=== PATIENT | male | born 1940 | race Caucasian/White ===

== ENCOUNTER 2016-10-17 06:44 | Inpatient (IN) | payer OTHER ==
[~2016-10-17] VITALS: Ht 165.1 cm; Wt 72.8 kg
[~2016-10-17 06:44] MED LIST: ACCUNEB SO1.25 MG/1 INH; AMLODIPINE BESY10 MG PO; ASPIR-TRIN325 MG PO; ASPIRIN325 PO; ATORVASTATIN CA40 MG PO; AUGMENTIN 500-1 EACH PO; AZITHROMYCIN 2250 MG PO; CEFTIN 250 MG250 MG PO; CEFTIN500 MG PO; COREG25 MG PO; COREG6.25 MG PO; DEMADEX20 MG PO; FLEXERIL PO; FUROSEMIDE20 MG/2 ML PO; GLYBURIDE 5 MG T5 M1; GUAIFENESIN1200 MG PO; HYDRALAZINE 2525 M1 PO; HYDRALAZINE 2525 MG PO; IBUPROFEN 600600 M1 PO; IMDUR 30 MG TAB30 M1 PO; LANTUS SUBQ; LANTUS100 UNIT/M SUBQ; LASIX 40 MG TAB40 M2 PO; LEVAQUIN 500 M500 M2 PO; LEVEMIR100 UNIT/1 SUBQ; LIPITOR40 MG PO; LISINOPRIL2.5 MG PO; LISINOPRIL20 MG PO; MUCINEX TA600 MG/TA2 PO; NEPHROCAPS SOFT1 CAP PO; NORCO 5-325 TA1 EACH PO; NORVASC5 MG PO; NOVOLOG100 UNIT/1 SUBQ; PROAIR RESPICL90 MCG IH; PROBIOTIC1 EAC1 PO; PROTONIX40 M1 PO; TYLENOL325 MG PO
[2016-10-17 06:53] VITALS: BP 155/70
[2016-10-17 07:10] LABS: ABSOLUTE NEUTROPHILS 4.4 thou/uL (1.4-8.2); BASOPHILS 1.3 % (0.0-2.0); EOSINOPHILS 4.9 % (0.0-3.0); HEMATOCRIT 36.9 % (42.0-52.0); HEMOGLOBIN 12.5 gm/dL (14.0-18.0); LYMPHOCYTES 32.7 % (24.0-44.0); MCH 30.3 pg (26.0-34.0); MCHC 33.9 g/dL (28.0-37.0); MCV 89.2 fL (80.0-100.0); MONOCYTES 11.4 % (1.0-8.0); PLATELET COUNT 178 thou/uL (150-400); POLYS 49.7 % (36.0-66.0); RBC 4.14 mil/uL (4.50-6.00); RDW 13.1 % (10.5-14.5); WBC 8.8 thou/uL (4.0-11.0)
[2016-10-17 07:18] LABS: MANUAL DIFF NO
[2016-10-17 07:21] LABS: CALCIUM 7.8 mg/dL (8.5-10.1); CREATININE 7.1 mg/dL (0.7-1.3); POTASSIUM 4.8 mmol/L (3.5-5.1)
[2016-10-17 07:23] LABS: APTT 25.2 Seconds (24.5-32.8); PROTIME 10.6 Seconds (9.3-11.4)
[2016-10-17 07:25] LABS: MAGNESIUM 1.8 mg/dL (1.8-2.4); PHOSPHORUS 6.6 mg/dL (2.5-4.9)
[2016-10-17 12:00] VITALS: BP 114/69
[2016-10-17 17:36] VITALS: BP 144/73
[2016-10-17 20:00] VITALS: BP 137/72
[2016-10-18 04:06] VITALS: BP 149/85
[2016-10-18 05:57] LABS: HEMOGLOBIN 12.3 gm/dL (14.0-18.0); MCHC 33.2 g/dL (28.0-37.0); MCV 90.4 fL (80.0-100.0); PLATELET COUNT 173 thou/uL (150-400); RDW 13.4 % (10.5-14.5)
[2016-10-18 06:03] LABS: MANUAL DIFF YES
[2016-10-18 06:05] LABS: CHOLESTEROL 165 mg/dL (<200); HDL CHOLESTEROL 69 mg/dL (>40); LDL CHOLESTEROL 77 mg/dL (<100); TC:HDL 2.4 Ratio (Not establshd); TRIGLYCERIDE 95 mg/dL (<150); VLDL 19 mg/dL (<40)
[2016-10-18 06:06] LABS: SERUM ASSESSMENT Clear
[2016-10-18 06:11] LABS: ALBUMIN 3.2 g/dL (3.4-5.0); CALCIUM 7.8 mg/dL (8.5-10.1); MAGNESIUM 1.9 mg/dL (1.8-2.4); PHOSPHORUS 5.9 mg/dL (2.5-4.9); POTASSIUM 4.3 mmol/L (3.5-5.1); TOTAL BILIRUBIN 0.2 mg/dL (<0.1-1.0); TOTAL PROTEIN 7.3 g/dL (6.4-8.2)
[2016-10-18 06:12] LABS: CREATININE 4.7 mg/dL (0.7-1.3)
[2016-10-18 07:44] LABS: ABSOLUTE NEUTROPHILS 3.4 thou/uL (1.4-8.2); ANISOCYTOSIS SLIGHT; TOTAL CELL COUNT 100
[2016-10-18 08:00] VITALS: BP 135/56
[2016-10-18] MEDS ORDERED: KEPPRA 500 MG500 M1 PO (10:53)
[2016-10-18] MEDS ORDERED: TUMS CHEWA500 MG/11 PO (11:51)
[2016-10-18 13:00] VITALS: BP 135/56
== END 2016-10-18 14:49 | disposition home or self-care (01) | DRG 91 ==
LOC: ER 06:44 → EROBS 09:46 → 4S 09:46
PROVIDERS: Emergency Medicine; Internal Medicine; Internal Medicine Nephrology
PROC: 5A1D00Z (ICD-10-PCS; principal; 2016-10-17)
DX: G25.3 Myoclonus (principal); N18.6 End stage renal disease; I12.0 Hypertensive chronic kidney disease with stage 5 chronic kidney disease or end stage renal disease; E11.22 Type 2 diabetes mellitus with diabetic chronic kidney disease; E78.5 Hyperlipidemia, unspecified; M19.90 Unspecified osteoarthritis, unspecified site; Z98.42 Cataract extraction status, left eye; Z87.01 Personal history of pneumonia (recurrent); Z87.891 Personal history of nicotine dependence; Z99.2 Dependence on renal dialysis; Z79.4 Long term (current) use of insulin; Z79.899 Other long term (current) drug therapy
CPT/HCPCS: 10100; 32100

== ENCOUNTER 2016-11-19 12:42 | Emergency (ER) | payer OTHER ==
[~2016-11-19] VITALS: Ht 165.1 cm; Wt 74.0 kg
[~2016-11-19 12:42] MED LIST changes: +KEPPRA 500 MG500 M1 PO; +TUMS CHEWA500 MG/11 PO
[2016-11-19 13:06] LABS: BASOPHILS 0.9 % (0.0-2.0); EOSINOPHILS 2.4 % (0.0-3.0); HEMATOCRIT 37.2 % (42.0-52.0); HEMOGLOBIN 12.6 gm/dL (14.0-18.0); MCH 30.7 pg (26.0-34.0); MCHC 33.9 g/dL (28.0-37.0); MCV 90.5 fL (80.0-100.0); PLATELET COUNT 220 thou/uL (150-400); POLYS 74.7 % (36.0-66.0); RBC 4.12 mil/uL (4.50-6.00); RDW 14.2 % (10.5-14.5); WBC 10.7 thou/uL (4.0-11.0)
[2016-11-19 13:07] LABS: MANUAL DIFF NO
[2016-11-19 13:14] LABS: CREATININE 7.7 mg/dL (0.7-1.3); POTASSIUM 5.3 mmol/L (3.5-5.1)
[2016-11-19 13:41] VITALS: BP 163/74
== END 2016-11-19 13:12 | disposition home or self-care (01) ==
LOC: ER 12:42
PROVIDERS: Emergency Medicine
DX: E11.649 Type 2 diabetes mellitus with hypoglycemia without coma (principal); R42 Dizziness and giddiness; E78.5 Hyperlipidemia, unspecified; E11.22 Type 2 diabetes mellitus with diabetic chronic kidney disease; I12.9 Hypertensive chronic kidney disease with stage 1 through stage 4 chronic kidney disease, or unspecified chronic kidney disease; N18.9 Chronic kidney disease, unspecified; Z79.4 Long term (current) use of insulin; Z87.891 Personal history of nicotine dependence; Z98.890 Other specified postprocedural states

== ENCOUNTER 2016-12-11 19:19 | Inpatient (IN) | payer OTHER ==
[~2016-12-11] VITALS: Ht 165.1 cm; Wt 76.3 kg
--- NOTE | ~2016-12-11 | HC ---
[facility] [place] [address] CONSULTATION Name: BETTYE MAYA Room #: 311-P ADM IN M.R.#: [id number] Admission: 12/11/16 Attend Phys: Gage Hua MD Discharge: Date of : 41 Report #: [id number] THIS REPORT FOR: //name// CC: FAM unknown Gage Hua REASON FOR CONSULTATION: Arrhythmia and high blood pressure. HISTORY OF PRESENT ILLNESS: The patient is a 76-year-old with history of hypertension, end-stage renal disease, prior CVA and diabetes mellitus, he was admitted to the hospital with worsening abdominal pain and diarrhea and was found to have a urinary tract infection and elevated blood sugars. He was placed on telemetry and he has had some arrhythmias documented. I reviewed the telemetry and there were episodes of supraventricular tachycardia, likely atrial tachycardia. There were brief in nature, some of these were narrow complex, others were wide complex and irregular in nature. The patient denies any problems with chest pain, shortness of breath is stable. He denies any PND or orthopnea. He denies presyncope or syncope. REVIEW OF SYSTEMS: A 12-point review of systems was performed and was negative other than what I mentioned above. PAST MEDICAL HISTORY: 1. Hypertension. 2. Diabetes. 3. Chronic renal insufficiency. 4. Diastolic heart failure. 5. Prior cerebrovascular accident. 6. Pancreatic surgery. SOCIAL HISTORY: Does not smoke. FAMILY HISTORY: Includes diabetes. ALLERGIES: None. MEDICATIONS: Have been reviewed and include heparin, insulin, Rocephin, aspirin, glyburide, Coreg 25 b.i.d. Last echocardiogram was in 02/2016 demonstrating eject fraction 55-60% with some diastolic dysfunction and no significant valvular abnormalities. PA pressures of 41. PHYSICAL EXAMINATION: VITAL SIGNS: Temperature is 37.4, pulse 84, respiration 20, blood pressure 159/71, sats are 98%. GENERAL: He is in no acute distress. Alert, oriented x 3. [address] [address] CONSULTATION Name: BETTYE MAYA Room #: 311-P [facility] IN .R.#: [id number] Admission: 12/11/16 Attend Phys: Gage Hua MD Discharge: Date of : 41 Report #: [id number] HEENT: Oropharynx clear. NECK: Supple, with no thyromegaly. HEART: Regular rate and rhythm with occasional ectopic beats. There is no elevated jugular venous pressures. LUNGS: Clear to auscultation bilaterally. ABDOMEN: Soft, nontender, nondistended with no hepatosplenomegaly. EXTREMITIES: No clubbing, cyanosis, edema. NEUROLOGICAL: Cranial nerves 2-12 are intact. Telemetry is reviewed per the history of present illness. LABORATORY DATA: White cell count 18.4, hemoglobin 10.9, platelets 239. Chemistry: Sodium 130, potassium 4.6, creatinine is 6.5, on dialysis. Troponin is negative x 1. ASSESSMENT: In summary, the patient is a 76-year-old with history of end-stage renal disease, diabetes, hypertension, prior cerebrovascular accident, who on equipment monitor phototypesetting has brief runs of what appears to be an atrial tachycardia, most of which are narrow complex, some of these shows some supraventricular tachycardia with aberration. These appear to be self-limited and asymptomatic. There are no episodes suggestive of atrial fibrillation. Therefore, anticoagulation is not recommended. I would recommend continuing of his carvedilol at the current dose. I recommend obtaining an echocardiogram if he is still here on Friday. <ELECTRONICALLY SIGNED> By: Yvon Sanz MD 12/19/16 1106 1249 1449 Yvon Sanz MD /nt
--- NOTE | ~2016-12-11 | HC ---
[facility] [place] [address] CONSULTATION Name: BETTYE MAYA Room #: 311-P ADM IN M.R.#: [id number] Admission: 12/11/16 Attend Phys: Gage Hua MD Discharge: Date of : 41 Report #: [id number] THIS REPORT FOR: //name// CC: FAM unknown Gage Hua DATE OF SERVICE: 12/12/2016 NEPHROLOGY CONSULTATION ATTENDING PHYSICIAN: Melvin Hernandez M.D. REASON FOR CONSULTATION: End-stage renal disease. HISTORY OF PRESENT ILLNESS: The patient is well known to our service with long-standing diabetes mellitus and diabetic nephropathy, has been on dialysis for 8 months or so. Recently, he has had dribbling and dysuria, some fever and some nausea and vomiting. He came to the Emergency Room and was found to have a urinary tract infection and glucose of greater than 600. PAST MEDICAL HISTORY: He has had a remote history of pancreatitis. He has got diabetes mellitus with documented diabetic nephropathy. He has had diastolic heart failure in the past as well. Some degree of documented poor medical compliance. He has got left arm fistula. HOME MEDICATIONS: Included insulin, carvedilol 25 mg b.i.d., glyburide 5 mg daily, Sensipar 30 mg daily, aspirin 325 mg daily, Nephrocaps 1 daily and Tums 2 with meals t.i.d. SOCIAL HISTORY: No cigarettes or alcohol. Former smoker. FAMILY HISTORY: Positive for diabetes and hypertension. REVIEW OF SYSTEMS: GENERAL: He has been feeling poorly. EYES: His vision is okay. ENT: Hearing okay, swallows okay. No mouth ulcers. ENDOCRINE: Positive for the diabetes. RESPIRATORY: Denies shortness of breath, pleuritic pain, cough or hemoptysis. CARDIAC: No palpitations, swelling or shortness of breath. No angina. GASTROINTESTINAL: He has had poor appetite, some vomiting and some nausea. GENITOURINARY: Dribbling and pain with urination, frequent urination. NEUROLOGIC: Denies seizure, syncope or stroke. PHYSICAL EXAMINATION: GENERAL: This is a reasonably comfortable-appearing gentleman seen in bed on [facility] [address] [place] [address] CONSULTATION Name: BETTYE MAYA Room #: 311-P [facility] IN ..#: [id number] Admission: 12/11/16 Attend Phys: Gage Hua MD Discharge: Date of : 41 Report #: [id number] dialysis. SKIN: Unremarkable. SKELETAL: Non-obese, well developed and well nourished. HEENT: Extraocular movements are full. Vision intact. No scleral icterus. Hearing intact. Mucous membranes moist. Tongue, buccal mucosa benign. NECK: Supple. No carotid bruits, JVD or lymphadenopathy. CHEST: Clear to auscultation. HEART: Regular, without murmurs. ABDOMEN: Soft and nontender, without bruits, masses or organomegaly. EXTREMITIES: Show no edema. Peripheral pulses intact. LABORATORY DATA: Glucose was initially greater than 600. White count 13.2 with 3 bands. ASSESSMENT AND PLAN: 1. End-stage renal disease. We will dialyze today, order is in. 2. Urinary tract infection. He may have urologic issues. He may need to see urology, who will do some postvoid analysis. 3. Diabetes with poor control. 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 4. 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 5. History of diastolic heart failure. <ELECTRONICALLY SIGNED> By: Dm To MD 12/18/16 1121 0941 1045 Dm To MD /nt
--- NOTE | ~2016-12-11 | 2DMMODE ---
[facility] [address] [place] [address] 2 D/M-MODE ECHOCARDIOGRAM Name: ALAN MAYAOMARIRocky Room #: 311-P [facility] IN .R.#: [id number] Admission: 12/11/16 Attend Phys: Gage Hua MD Discharge: Date of : 41 Date of Service: 12/16/16 1143 Report #: [id number] THIS REPORT FOR: //name// APPROVED REPORT Study performed: 12/16/2016 09:50:23 EXAM: Comprehensive 2D, Doppler, and color-flow Echocardiogram Patient Location: Bedside Room #: 311 Status: routine BSA: 1.80 HR: 101 bpm BP: 149/74 mmHg Other Information Study Quality: Good Indications Arrhythmia Diabetes Hypertension/HDD SVT. 2D Dimensions RVDd: 37.64 mm LVEF(%): 60.93 (>50%) IVSd: 15.16 (7-11mm) LVOT Diam: 23.05 (18-24mm) LVDd: 40.33 mm PWd: 13.76 (7-11mm) Ascending Ao: 32.02 (22-36mm) LVDs: 27.35 (25-40mm) Aortic Root: 32.20 mm IVC: 17.00 mm Miller's LVEF: 60.93 % Volumes Left Atrial Volume (Systole) Single Plane 4CH: 40.43 mL Single Plane 2CH: 92.68 mL LA ESV Index: 41.00 mL/m2 Aortic Valve AoV Peak Brennan.: 2.01 m/s AO Peak Gr.: 16.17 mmHg LVOT Max P.95 mmHg LVOT Max V: 0.99 m/s MERCEDES Vmax: 2.06 cm2 [facility] [address] [place] [address] 2 D/M-MODE ECHOCARDIOGRAM Name: BETTYE MAYA Room #: 311-P [facility] IN .R.#: [id number] Admission: 12/11/16 Attend Phys: Gage Hua MD Discharge: Date of : 41 Date of Service: 12/16/16 1143 Report #: [id number] Mitral Valve E/A Ratio: 0.8 MV Decel. Time: 294.88 ms MV E Max Brennan.: 0.84 m/s MV A Brennan.: 1.08 m/s MV PHT: 85.52 ms IVRT: 141.87 ms Pulmonary Valve PV Peak Brennan.: 0.95 m/s PV Peak Gr.: 3.62 mmHg Pulmonary Vein P Vein S: 0.44 m/s P Vein A: 0.28 m/s P Vein D: 0.33 m/s P Vein A Dur.: 90.0 msec P Vein S/D Ratio: 1.33 Tricuspid Valve TR Peak Brennan.: 3.58 m/s RAP Estimate: 5.00 mmHg TR Peak Gr.: 51.14 mmHg PA Pressure: 56.00 mmHg Left Ventricle The left ventricle is normal size. Mild to moderate concentric left ventricular hypertrophy. The left ventricular systolic function is normal. The left ventricular ejection fraction is within the normal range. LVEF is 55-60%. Grade I - abnormal relaxation pattern. Right Ventricle The right ventricle is normal size. The right ventricular systolic function is normal. Atria Left atrium is dilated. The right atrium size is normal. Aortic Valve The aortic valve is normal in structure. Trace aortic regurgitation. There is no aortic valvular stenosis. Mitral Valve The mitral valve is normal in structure. Mild mitral regurgitation. No evidence of mitral valve stenosis. Tricuspid Valve The tricuspid valve is normal in structure. There is no tricuspid valve stenosis. There is trace tricuspid regurgitation. [facility] [address] [place] [address] 2 D/M-MODE ECHOCARDIOGRAM Name: BETTYE MAYA Room #: 311-P [facility] IN [facility]#: [id number] Admission: 12/11/16 Attend Phys: Gage Hua MD Discharge: Date of : 41 Date of Service: 12/16/16 1143 Report #: [id number] Pulmonic Valve The pulmonary valve is normal in structure. There is no pulmonic valvular regurgitation. Great Vessels The aortic root is normal in size. IVC is normal in size and collapses >50% with inspiration. Pericardium There is no pericardial effusion. <Conclusion> The left ventricle is normal size. Mild to moderate concentric left ventricular hypertrophy. LVEF is 55-60%. Grade I - abnormal relaxation pattern. The right ventricle is normal size. Left atrium is dilated. The aortic valve is normal in structure. Mild mitral regurgitation. There is trace tricuspid regurgitation. There is no pericardial effusion. <ELECTRONICALLY SIGNED> By: Dm Kelly MD, [facility] 12/16/16 1143 1143 1143 Dm Kelly MD, FACC /INF
--- NOTE | ~2016-12-11 | HC ---
[facility] [place] [address] CONSULTATION Name: BETTYE MAYA Room #: 311-P [facility] IN M.R.#: [id number] Admission: 12/11/16 Attend Phys: Gage Hua MD Discharge: Date of : 41 Report #: [id number] THIS REPORT FOR: //name// CC: FAM unknown Gage Hua DATE OF SERVICE: 12/14/2016 TYPE OF REPORT: Infectious disease consultation. ATTENDING PHYSICIAN: Gage Hua M.D. REASON FOR EVALUATION: Complicated urinary tract infection and increasing leukocytosis, on antibiotic therapy. HISTORY OF PRESENT ILLNESS: Chart reviewed, the patient examined. A 76-year-old male with diabetes mellitus, has been complicated by end-stage renal disease, on hemodialysis for the last 8 months via shunt; who was admitted with complaints of frequency, urgency. It is notable he does continue to make urine, is diagnosed with urinary tract infection, had moderate pyuria and moderate bacteriuria. Urine culture with growth of Klebsiella pneumoniae that was greater than 10 to the fifth in quantity, was very susceptible with no evident in vitro resistance, has been on ceftriaxone. Generally, he states he feels somewhat better. He still has some discomfort, although that is eased. In addition to the above-noted complaints, he had some loose stools as well. He states his appetite has been fair. He is not having consistent breathing difficulties. He has had some low-grade temperature elevations, seemingly in a secret pattern often in the evening. On questioning, he denies any particular exposure history, no travel, no animal exposure and is not encephalopathic. Blood cultures were ____ sterile. Stool cultures unremarkable. CT abdomen and pelvis, which was done at the time of admission with some changes that is a question of large prostate gland. ALLERGIES: None known. MEDICATIONS: Include insulin, ceftriaxone, aspirin, glyburide, carvedilol and ____. PAST MEDICAL HISTORY: As described above and does have a history of pancreatitis with surgery, otherwise lacking details; hyperlipidemia and osteoarthritis. SOCIAL HISTORY: Nonsmoker. No ethanol. FAMILY HISTORY: Noncontributory. [facility] [address] [place] [address] CONSULTATION Name: BETTYE MAYA Room #: 311-P [facility] IN ..#: [id number] Admission: 12/11/16 Attend Phys: Gage Hua MD Discharge: Date of : 41 Report #: [id number] REVIEW OF SYSTEMS: As above. PHYSICAL EXAMINATION: GENERAL: He is pleasant, alert, cooperative, in mild distress, appears chronically ill and undernourished. VITAL SIGNS: Temperature 99.3, pulse 84, respirations 20 and blood pressure 159/71. SKIN: Warm and dry. No rashes. HEENT: Otherwise unremarkable. NECK: Supple. LUNGS: Clear to auscultation. HEART: Regular. ABDOMEN: Soft and nontender. There is mild tenderness in lower quadrants. LABORATORY DATA: Blood cultures as described above. Most recent CBC: White count of 18.4, H and H 10.9 and 31.4 and platelets of 239. Electrolytes: Sodium 130, potassium 4.6, chloride 90, bicarbonate is 20, BUN and creatinine 52 and 6.5 and glucose of 245. ASSESSMENT AND PLAN: Leukocytosis in the setting of a complicated urinary tract infection, may be prostate involved as well. We will get an ultrasound given his burning and still difficulty in his perineal area. Symptoms seem somewhat exaggerated ____, otherwise unremarkable cystitis. We will check some additional studies to peripheral smear ____ white count may be due to ____, etc. We will check serum protein electrophoresis, he is hyponatremic as well and cortisol and TSH level. Continue the ceftriaxone for the meantime. We will follow. <ELECTRONICALLY SIGNED> By: Pb Calix MD 12/15/16 1702 1705 2477 Pb Calix MD /nt
--- NOTE | ~2016-12-11 | EKG ---
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 NELSON : 1940 Requested By: Daniel Melgar Order Number: [id number] MD: Thomas Burton Measurements Intervals [place] Rate: 107 P: -45 MN: 177 QRS: -29 QRSD: 108 T: 124 QT: 365 QTc: 487 Interpretive Statements Sinus tachycardia Atrial premature complex LVH with secondary repolarization abnormality Anterior Q waves, possibly due to LVH Compared to ECG 03/07/2016 13:23:37 Atrial premature complex(es) now present Electronically Signed On 12-20-2016 8:36:37 CDT by Thomas Burton [email or web address] <ELECTRONICALLY SIGNED> By: Thomas Burton MD, [facility] 12/20/16 0836 1316 1316 Thomas Burton MD, [facility] /EPI
[2016-12-11 19:20] VITALS: BP 149/70
[2016-12-11] MEDS ORDERED: GLYBURIDE 2.52.5 MG PO (19:45)
[2016-12-11] MEDS ORDERED: SENSIPAR 30 MG30 M1 PO (19:47)
[2016-12-11 20:15] LABS: HEMATOCRIT 32.7 % (42.0-52.0); HEMOGLOBIN 11.1 gm/dL (14.0-18.0); MCH 31.1 pg (26.0-34.0); MCHC 33.9 g/dL (28.0-37.0); MCV 91.7 fL (80.0-100.0); PLATELET COUNT 237 thou/uL (150-400); RBC 3.56 mil/uL (4.50-6.00); RDW 13.4 % (10.5-14.5); WBC 13.2 thou/uL (4.0-11.0)
[2016-12-11 20:21] LABS: MANUAL DIFF YES
[2016-12-11 20:31] LABS: ALBUMIN 2.9 g/dL (3.4-5.0); CALCIUM 9.8 mg/dL (8.5-10.1); POTASSIUM 4.7 mmol/L (3.5-5.1); TOTAL BILIRUBIN 0.4 mg/dL (<0.1-1.0); TOTAL PROTEIN 8.2 g/dL (6.4-8.2)
[2016-12-11 20:47] LABS: ABSOLUTE NEUTROPHILS 11.5 thou/uL (1.4-8.2); METAMYELOCYTES 2 %; TOTAL CELL COUNT 100
[2016-12-11 20:48] LABS: ANISOCYTOSIS 1+; POLYCHROMASIA OCCASIONAL
[2016-12-11 20:55] LABS: URINE BILIRUBIN NEGATIVE (Negative); URINE BLOOD 2+ (Negative); URINE COLOR YELLOW; URINE GLUCOSE-RANDOM* 3+ (Negative); URINE KETONES NEGATIVE (Negative); URINE LEUKOCYTES-REFLEX 2+ (Negative); URINE PROTEIN (DIPSTICK) 2+ (Negative); URINE UROBILINOGEN 0.2 E.U./dl (0.2-1.0)
[2016-12-11 20:57] LABS: ABG SAMPLE TYPE VENOUS; BE(vivo) -1.2 mmol/L (-2 to +3); HCO3 24.4 mmol/L (22.0-26.0); LACTATE 2.31 mmol/L (0.5-2.0); O2(CT) 9.1 mL/dL (15.0-23.0); O2Hb VENOUS 57.7 (65.0-85.0); PCO2 VENOUS 44.4 mmHg (41.0-51.0); PO2 VENOUS 29.5 mmHg (35.0-45.0); STICK SITE VENIPUNCTURE; sO2 VENOUS 53.2 % (65.0-85.0); tCO2 25.7 mmol/L (24.0-30.0)
[2016-12-11 21:02] LABS: CASTS None Seen /LPF (None Seen); CRYSTALS None Seen /LPF (None Seen); SQUAMOUS None Seen /LPF (0-3); URINE RBC 0-2 Rare /HPF (0-2)
[2016-12-11 22:24] VITALS: BP 136/64
[2016-12-12 04:05] LABS: CALCIUM 9.5 mg/dL (8.5-10.1); CREATININE 7.8 mg/dL (0.7-1.3); MAGNESIUM 1.8 mg/dL (1.8-2.4)
[2016-12-12 04:06] LABS: HEMATOCRIT 28.3 % (42.0-52.0); HEMOGLOBIN 9.8 gm/dL (14.0-18.0); MCHC 34.5 g/dL (28.0-37.0); MCV 89.8 fL (80.0-100.0); RBC 3.15 mil/uL (4.50-6.00); RDW 13.8 % (10.5-14.5); WBC 12.6 thou/uL (4.0-11.0)
[2016-12-12 04:35] VITALS: BP 138/66
[2016-12-12 08:00] VITALS: BP 135/57
[2016-12-12 16:50] VITALS: BP 153/67
[2016-12-12 19:14] VITALS: BP 148/67
[2016-12-13 03:47] VITALS: BP 181/75
[2016-12-13 05:45] LABS: HEMATOCRIT 31.8 % (42.0-52.0); HEMOGLOBIN 10.7 gm/dL (14.0-18.0); MCHC 33.5 g/dL (28.0-37.0); MCV 92.4 fL (80.0-100.0); RBC 3.44 mil/uL (4.50-6.00); RDW 14.1 % (10.5-14.5); WBC 15.1 thou/uL (4.0-11.0)
[2016-12-13 06:04] LABS: ALBUMIN 2.7 g/dL (3.4-5.0); CREATININE 5.1 mg/dL (0.7-1.3); PHOSPHORUS 3.3 mg/dL (2.5-4.9); POTASSIUM 4.4 mmol/L (3.5-5.1)
[2016-12-13 08:00] VITALS: BP 147/72
[2016-12-13 16:00] VITALS: BP 139/64
[2016-12-13 19:40] VITALS: BP 140/62
[2016-12-13 23:10] VITALS: BP 127/56
[2016-12-14 00:39] LABS: HEMATOCRIT 31.4 % (42.0-52.0); HEMOGLOBIN 10.9 gm/dL (14.0-18.0); MCH 31.6 pg (26.0-34.0); MCHC 34.9 g/dL (28.0-37.0); MCV 90.6 fL (80.0-100.0); RBC 3.46 mil/uL (4.50-6.00); RDW 14.3 % (10.5-14.5); WBC 18.4 thou/uL (4.0-11.0)
[2016-12-14 00:44] LABS: CALCIUM 8.2 mg/dL (8.5-10.1); CREATININE 6.5 mg/dL (0.7-1.3); POTASSIUM 4.6 mmol/L (3.5-5.1)
[2016-12-14 00:53] LABS: MAGNESIUM 1.6 mg/dL (1.8-2.4); TROPONIN-I 0.06 ng/mL (<0.04-0.07)
[2016-12-14 03:40] VITALS: BP 143/74
[2016-12-14 07:30] VITALS: BP 159/71
[2016-12-14 17:38] LABS: HEMATOCRIT 31.1 % (42.0-52.0); HEMOGLOBIN 10.6 gm/dL (14.0-18.0); MCH 30.9 pg (26.0-34.0); MCHC 34.2 g/dL (28.0-37.0); MCV 90.2 fL (80.0-100.0); PLATELET COUNT 277 thou/uL (150-400); RBC 3.45 mil/uL (4.50-6.00); WBC 16.7 thou/uL (4.0-11.0)
[2016-12-14 17:40] LABS: MANUAL DIFF YES
[2016-12-14 17:56] LABS: ABSOLUTE NEUTROPHILS 11.7 thou/uL (1.4-8.2); METAMYELOCYTES 2 %; MYELOCYTES 1 %; TOTAL CELL COUNT 100
[2016-12-14 19:57] VITALS: BP 163/70
[2016-12-15 03:37] VITALS: BP 149/66
[2016-12-15 05:36] LABS: HEMATOCRIT 31.2 % (42.0-52.0); HEMOGLOBIN 10.3 gm/dL (14.0-18.0); MCH 30.2 pg (26.0-34.0); MCHC 32.9 g/dL (28.0-37.0); MCV 91.7 fL (80.0-100.0); RBC 3.4 mil/uL (4.50-6.00); RDW 14.1 % (10.5-14.5); WBC 16.9 thou/uL (4.0-11.0)
[2016-12-15 08:21] VITALS: BP 170/76
[2016-12-15 15:18] VITALS: BP 139/73
[2016-12-15 20:09] VITALS: BP 179/86
[2016-12-15 23:22] VITALS: BP 145/70
[2016-12-16 03:56] VITALS: BP 173/82
[2016-12-16 06:19] LABS: HEMATOCRIT 30.4 % (42.0-52.0); HEMOGLOBIN 10.4 gm/dL (14.0-18.0); MANUAL DIFF YES; MCH 30.6 pg (26.0-34.0); MCHC 34.1 g/dL (28.0-37.0); MCV 89.8 fL (80.0-100.0); PLATELET COUNT 283 thou/uL (150-400); RBC 3.38 mil/uL (4.50-6.00); RDW 14.1 % (10.5-14.5); WBC 18.3 thou/uL (4.0-11.0)
[2016-12-16 06:32] LABS: ALBUMIN 2.5 g/dL (3.4-5.0); CALCIUM 7.8 mg/dL (8.5-10.1); CREATININE 6.2 mg/dL (0.7-1.3); POTASSIUM 3.9 mmol/L (3.5-5.1); TOTAL BILIRUBIN 0.4 mg/dL (<0.1-1.0); TOTAL PROTEIN 7.7 g/dL (6.4-8.2)
[2016-12-16 08:12] LABS: ABSOLUTE NEUTROPHILS 16.5 thou/uL (1.4-8.2); ANISOCYTOSIS SLIGHT; METAMYELOCYTES 1 %; MYELOCYTES 1 %; TOTAL CELL COUNT 100
[2016-12-16 08:24] VITALS: BP 149/74
[2016-12-16 15:49] VITALS: BP 129/73
[2016-12-16 19:27] VITALS: BP 143/59
[2016-12-17 03:32] VITALS: BP 159/67
[2016-12-17 05:00] LABS: HEMATOCRIT 27.5 % (42.0-52.0); HEMOGLOBIN 9.4 gm/dL (14.0-18.0); MCH 30.7 pg (26.0-34.0); MCHC 34.2 g/dL (28.0-37.0); MCV 89.9 fL (80.0-100.0); PLATELET COUNT 263 thou/uL (150-400); RBC 3.06 mil/uL (4.50-6.00); WBC 24.5 thou/uL (4.0-11.0)
[2016-12-17 05:04] LABS: MANUAL DIFF YES
[2016-12-17 05:25] LABS: CALCIUM 8.1 mg/dL (8.5-10.1); POTASSIUM 3.6 mmol/L (3.5-5.1)
[2016-12-17 07:43] VITALS: BP 132/63
[2016-12-17 08:08] LABS: A/G RATIO 0.7 (0.7-1.7); ALBUMIN 2.7 g/dL (2.9-4.4); ALPHA 1 0.4 g/dL (0.0-0.4); ALPHA 2 1.4 g/dL (0.4-1.0); GAMMA 1.1 g/dL (0.4-1.8); M-SPIKE Not Observed g/dL (Not Observed)
[2016-12-17 08:48] LABS: ABSOLUTE NEUTROPHILS 22.5 thou/uL (1.4-8.2); METAMYELOCYTES 2 %; PLATELET ESTIMATE NORMAL; TOTAL CELL COUNT 100
[2016-12-17 12:11] LABS: URINE BILIRUBIN NEGATIVE (Negative); URINE BLOOD 2+ (Negative); URINE COLOR YELLOW; URINE GLUCOSE-RANDOM* TRACE (Negative); URINE KETONES NEGATIVE (Negative); URINE LEUKOCYTES-REFLEX 1+ (Negative); URINE PROTEIN (DIPSTICK) 2+ (Negative); URINE SPECIFIC GRAVITY 1.025 (1.003-1.035)
[2016-12-17 12:17] LABS: CRYSTALS None Seen /LPF (None Seen); FINE GRANULAR CASTS 0-3 Few /LPF (None Seen); SQUAMOUS 0-3 Few /LPF (0-3); URINE RBC 3-10 Few /HPF (0-2)
[2016-12-17 12:18] LABS: WBC CLUMPS Moderate (None Seen)
[2016-12-17 20:30] VITALS: BP 132/77
[2016-12-18 04:10] VITALS: BP 124/73
[2016-12-18 05:33] LABS: HEMOGLOBIN 9.1 gm/dL (14.0-18.0); MCH 30.5 pg (26.0-34.0); MCHC 33.8 g/dL (28.0-37.0); MCV 90.1 fL (80.0-100.0); PLATELET COUNT 306 thou/uL (150-400); RDW 13.9 % (10.5-14.5); WBC 22.7 thou/uL (4.0-11.0)
[2016-12-18 05:38] LABS: MANUAL DIFF YES
[2016-12-18 05:48] LABS: CALCIUM 8.3 mg/dL (8.5-10.1); MAGNESIUM 1.7 mg/dL (1.8-2.4); POTASSIUM 3.9 mmol/L (3.5-5.1)
[2016-12-18 05:52] LABS: CREATININE 4.4 mg/dL (0.7-1.3)
[2016-12-18 07:20] VITALS: BP 147/73
[2016-12-18 07:39] LABS: ABSOLUTE NEUTROPHILS 16.8 thou/uL (1.4-8.2); ATYPICAL LYMPHS 2 %; METAMYELOCYTES 2 %; MYELOCYTES 1 %; TOTAL CELL COUNT 100
[2016-12-18 07:43] LABS: ANISOCYTOSIS 1+
[2016-12-18 15:27] VITALS: BP 117/61
[2016-12-18 19:55] VITALS: BP 131/64
[2016-12-19 03:59] LABS: HEMATOCRIT 26.3 % (42.0-52.0); HEMOGLOBIN 9.1 gm/dL (14.0-18.0); MCH 31.3 pg (26.0-34.0); MCHC 34.5 g/dL (28.0-37.0); MCV 90.7 fL (80.0-100.0); PLATELET COUNT 322 thou/uL (150-400); RDW 14.2 % (10.5-14.5); WBC 18.1 thou/uL (4.0-11.0)
[2016-12-19 04:10] LABS: MANUAL DIFF YES
[2016-12-19 04:45] VITALS: BP 140/69
[2016-12-19 07:39] LABS: ABSOLUTE NEUTROPHILS 13.8 thou/uL (1.4-8.2); METAMYELOCYTES 3 %; MYELOCYTES 1 %; TOTAL CELL COUNT 100
[2016-12-19 07:41] LABS: ANISOCYTOSIS SLIGHT
[2016-12-19] MEDS ORDERED: CIPRO500 MG PO (11:27)
[2016-12-19] MEDS ORDERED: CARDIZEM CD120 MG PO (11:27)
[2016-12-19] MEDS ORDERED: FLOMAX0.4 MG PO (11:27)
[2016-12-19 12:05] VITALS: BP 144/63
[2016-12-19 12:06] VITALS: BP 140/69
[2016-12-19 12:20] VITALS: BP 144/63
== END 2016-12-19 13:41 | disposition home health service (06) | DRG 871 ==
LOC: ER 19:19 → 3N 21:46 → EROBS 21:46 → 3N 22:34 → ENTRNSPT 12-19 13:23 → EDTRNSPTSTS 12-19 13:36 → 3N 12-19 13:41
PROVIDERS: Emergency Medicine; Hospitalist; Internal Medicine; Internal Medicine Nephrology; Nurse Practitioner Acute Care; Specialist
PROC: 5A1D60Z (ICD-10-PCS; principal; 2016-12-12)
DX: A41.9 Sepsis, unspecified organism (principal); N18.6 End stage renal disease; N39.0 Urinary tract infection, site not specified; I13.2 Hypertensive heart and chronic kidney disease with heart failure and with stage 5 chronic kidney disease, or end stage renal disease; I47.1 Supraventricular tachycardia; E87.1 Hypo-osmolality and hyponatremia; E11.65 Type 2 diabetes mellitus with hyperglycemia; M19.90 Unspecified osteoarthritis, unspecified site; E11.22 Type 2 diabetes mellitus with diabetic chronic kidney disease; E78.5 Hyperlipidemia, unspecified; I50.9 Heart failure, unspecified; E11.42 Type 2 diabetes mellitus with diabetic polyneuropathy; B96.1 Klebsiella pneumoniae [K. pneumoniae] as the cause of diseases classified elsewhere; R19.7 Diarrhea, unspecified; N41.9 Inflammatory disease of prostate, unspecified; D64.9 Anemia, unspecified; Z87.01 Personal history of pneumonia (recurrent); Z98.42 Cataract extraction status, left eye; Z79.899 Other long term (current) drug therapy; Z87.891 Personal history of nicotine dependence; Z79.82 Long term (current) use of aspirin; Z99.2 Dependence on renal dialysis; Z82.49 Family history of ischemic heart disease and other diseases of the circulatory system; Z83.3 Family history of diabetes mellitus; Z79.4 Long term (current) use of insulin; Z86.73 Personal history of transient ischemic attack (TIA), and cerebral infarction without residual deficits
CPT/HCPCS: 10096; 32100

== ENCOUNTER 2018-01-09 08:14 | Inpatient (IN) | payer OTHER ==
[~2018-01-09] VITALS: Ht 162.6 cm; Wt 83.1 kg
--- NOTE | ~2018-01-09 | EKG ---
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
--- NOTE | ~2018-01-09 | 2DMMODE ---
[facility] [address] [place] [address] 2 D/M-MODE ECHOCARDIOGRAM Name: ALAN MAYAOMARIRocky Room #: 212-P ADM IN M.R.#: [id number] Admission: 01/09/18 Attend Phys: Melvin Hernandez, Discharge: Date of : 42 Date of Service: 01/12/18 1604 Report #: [id number] THIS REPORT FOR: //name// APPROVED REPORT Study performed: 01/12/2018 10:49:23 EXAM: Comprehensive 2D, Doppler, and color-flow Echocardiogram Patient Location: Echo lab Room #: [facility] Status: routine BSA: 1.88 HR: 70 bpm BP: 152/69 mmHg Rhythm: NSR/irregular Other Information Study Quality: Good Indications Nonsustained V-tach, short of breath, HTN. Hx: Diastolic HF, HTN, DM, ESRD. 2D Dimensions RVDd: 40.75 mm IVSd: 12.95 (7-11mm) LVOT Diam: 20.52 (18-24mm) LVDd: 52.81 mm PWd: 9.07 (7-11mm) LVDs: 32.21 (25-40mm) Aortic Root: 33.13 mm Volumes Left Atrial Volume (Systole) Single Plane 4CH: 55.62 mL Single Plane 2CH: 74.28 mL LA ESV Index: 38.00 mL/m2 Aortic Valve AoV Peak Brennan.: 2.42 m/s AO Peak Gr.: 0.46 mmHg LVOT Max P.13 mmHg AO Mean Gr.: 13.16 mmHg AO V2 Mean: 1.75 m/s LVOT Max V: 1.13 m/s AO V2 VTI: 58.00 cm MERCEDES Vmax: 1.54 cm2 Mitral Valve [facility] [place] [address] 2 D/M-MODE ECHOCARDIOGRAM [facility]: [facility] Room #: 212-P [facility] IN M.R.#: [id number] Admission: 01/09/18 Attend Phys: Melvin Hernandez, Discharge: Date of : 41 Date of Service: 01/12/18 1604 Report #: [id number] E/A Ratio: 2.3 MV Decel. Time: 161.03 ms MV E Max Brennan.: 1.56 m/s MV A Brennan.: 0.69 m/s MV PHT: 46.70 ms Pulmonary Valve PV Peak Brennan.: 1.06 m/s PV Peak Gr.: 4.47 mmHg Pulmonary Vein P Vein S: 0.43 m/s P Vein D: 0.96 m/s P Vein S/D Ratio: 0.45 Tricuspid Valve TR Peak Brennan.: 3.78 m/s RAP Estimate: 5.00 mmHg TR Peak Gr.: 57.05 mmHg PA Pressure: 62.00 mmHg Left Ventricle The left ventricle is normal size. There is normal LV segmental wall motion. Mild concentric left ventricular hypertrophy. Left ventricular systolic function is normal. LVEF is 55%. Grade III - reversible restrictive diastolic dysfunction. Right Ventricle The right ventricle is normal size. The right ventricular systolic function is normal. Atria Left atrium is mildly dilated. Right atrium is mildly dilated. Aortic Valve Aortic valve is calcified. Mild aortic regurgitation. There is mild valvular aortic stenosis. Calculated aortic valve area is 1.5 cm2 with maximum pressure gradient of 24 mmHg and mean pressure gradient of 13 mmHg. Mitral Valve Mitral valve leaflets are calcified. Mild to moderate mitral annular calcification. Moderate mitral regurgitation. No evidence of mitral valve stenosis. Tricuspid Valve The tricuspid valve is normal in structure. Moderate tricuspid [address] [address] 2 D/M-MODE ECHOCARDIOGRAM Name: BETTYE MAYA Room #: 212-P [facility] IN [facility]#: [id number] Admission: 01/09/18 Attend Phys: Melvin Hernandez, Discharge: Date of : 42 Date of Service: 01/12/18 1604 Report #: [id number] regurgitation. Estimated PAP is 60-65mmHg. Pulmonic Valve The pulmonary valve is normal in structure. Trace pulmonic regurgitation. Great Vessels The aortic root is normal in size. The ascending aorta is normal in size. IVC is normal in size and collapses >50% with inspiration. Pericardium There is no pericardial effusion. <Conclusion> The left ventricle is normal size. Mild concentric left ventricular hypertrophy. LVEF is 55%. Grade III - reversible restrictive diastolic dysfunction. The right ventricular systolic function is normal. Left atrium is mildly dilated. Right atrium is mildly dilated. Aortic valve is calcified. Mild aortic regurgitation. There is mild valvular aortic stenosis. Calculated aortic valve area is 1.5 cm2 with maximum pressure gradient of 24 mmHg and mean pressure gradient of 13 mmHg. Mitral valve leaflets are calcified. Mild to moderate mitral annular calcification. Moderate mitral regurgitation. Moderate tricuspid regurgitation. Estimated PAP is 60-65mmHg. The aortic root is normal in size. There is no pericardial effusion. <ELECTRONICALLY SIGNED> By: Dm Kelly MD, FACC 01/12/18 1604 1604 1604 Dm Kelly MD, FACC /INF
--- NOTE | ~2018-01-09 | EKG ---
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 : 1940 Requested By: Dm Kelly Order Number: [id number] MD: Yvon Sanz Measurements Intervals [place] Rate: 71 P: 34 MI: 209 QRS: -41 QRSD: 112 T: 81 QT: 445 QTc: 484 Interpretive Statements Sinus rhythm Borderline IVCD with LAD Compared to ECG 12/15/2017 08:19:26 Myocardial infarct finding now present First degree AV block no longer present Left anterior fascicular block no longer present Electronically Signed On 01-12-2018 17:38:52 CDT by Yvon Sanz [email or web address] <ELECTRONICALLY SIGNED> By: Yvon Sanz MD 01/12/18 1738 0756 0756 Yvon Sanz MD /EPI
--- NOTE | ~2018-01-09 | HC ---
[facility] [place] [address] CONSULTATION Name: BETTYE MAYA Room #: 212-P [facility] IN M.R.#: [id number] Admission: 01/09/18 Attend Phys: Melvin Hernandez MD Discharge: 01/12/18 Date of : 42 Report #: [id number] THIS REPORT FOR: //name// CC: FAM unknown Melvin Hernandez DATE OF SERVICE: 01/09/2018 REASON FOR PRESENTATION: Missed dialysis. HISTORY OF PRESENT ILLNESS: A 77-year-old who presented to the emergency room after missing his dialysis x 2. He had his left knee replacement surgery last week. He also missed his appointment with the orthopedic because of extreme pain and inability to move. He presented reporting shortness of breath with bilateral lower extremity edema. He was supposed to be dialyzing every Friday, and Friday. I had actually asked the patient before the discharge if he is going to be able to make it to the dialysis unit or not. He assured me that he would be able to do it; however, this did not happen. He is known to have end-stage renal disease due to longstanding diabetes mellitus and hypertension. I am being consulted to manage his end-stage renal disease. PAST MEDICAL HISTORY: 1. End-stage renal disease. 2. Hypertension. 3. Diabetes mellitus. 4. Left arm AV fistula. 5. TIA with stroke back in 2014. 6. Recent left knee replacement. MEDICATIONS: 1. Tums. 2. Aspirin. 3. Cinacalcet. 4. Carvedilol. ALLERGIES: No known drug allergies. SOCIAL HISTORY: He is an ex-smoker. No drug or alcohol abuse. REVIEW OF SYSTEMS: GENERAL: No fever or chills. CARDIOVASCULAR: Significant for shortness of breath. PULMONARY: No cough or hemoptysis, but significant shortness of breath and dyspnea on exertion. GASTROINTESTINAL: No nausea or vomiting. MUSCULOSKELETAL: Significant left knee pain. [facility] [address] [place] [address] CONSULTATION Name: BETTYE MAYA Room #: 212-P [facility] IN M.R.#: [id number] Admission: 01/09/18 Attend Phys: Melvin Hernandez MD Discharge: 01/12/18 Date of : 42 Report #: [id number] SKIN: Significant lower extremity edema. ALLERGIES: None. PHYSICAL EXAMINATION: GENERAL: He is alert, oriented, with mild respiratory distress. VITAL SIGNS: Temperature 36.3, pulse rate 68, blood pressure 160/80, initially on presentation was 192/79. HEAD AND NECK: Jugular venous distention present. CHEST: Decreased air entry with crackles. CARDIOVASCULAR: No rub detected. ABDOMEN: Soft, nontender, distended. LOWER EXTREMITIES: +2 edema. LABORATORY DATA: Reviewed. Sodium 128, potassium 6.2, BUN 104, creatinine is 10.6. IMAGING: Chest x-ray reviewed, consistent with pulmonary edema and cardiomegaly. ASSESSMENT, IMPRESSION AND PLAN: 1. End-stage renal disease. 2. Hyperkalemia. 3. Hyponatremia. 4. Missed dialysis treatment. 5. Recent left knee surgery. 6. We will arrange for the patient to have an emergent dialysis. We will also arrange for him to have dialysis tomorrow. I had a lengthy discussion with the patient regarding his recent knee surgery and whether he is going to be able to make it to his dialysis unit every Friday, and Friday as outpatient schedule. He is going to discuss his mobility, placement issues with his family. 7. Resume his blood sugar medication. 8. Resume blood pressure medication. 9. Resume binders. 10. We will continue to follow along. <ELECTRONICALLY SIGNED> By: Candelaria Loera MD 01/13/18 0741 1414 0121 Candelaria Loera MD /nt
--- NOTE | ~2018-01-09 | EKG ---
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 : 1940 Requested By: Melvin Hernandez Order Number: [id number] MD: Yvon Sanz Measurements Intervals [place] Rate: 91 P: 55 VA: 218 QRS: -46 QRSD: 148 T: 119 QT: 414 QTc: 510 Interpretive Statements Sinus rhythm Prolonged VA interval Left bundle branch block Compared to ECG 12/15/2017 08:19:26 Left bundle-branch block now present Left anterior fascicular block no longer present Electronically Signed On 01-12-2018 17:25:21 CDT by Yvon Sanz [email or web address] <ELECTRONICALLY SIGNED> By: Yvon Sanz MD 01/12/18 1725 0259 0259 Yvon Sanz MD /EPI
--- NOTE | ~2018-01-09 | EKG ---
[address] [address] ELECTROCARDIOGRAM REPORT Name: FRANCESCOBETTYE Room #: 212- ADM IN M.R.#: [id number] Admission: 01/09/18 Attend Phys: Melvin Hernandez MD Discharge: Date of : 42 Report #: [id number] THIS REPORT FOR: //name// 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
--- NOTE | ~2018-01-09 | EKG ---
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
--- NOTE | ~2018-01-09 | EKG ---
[address] [address] ELECTROCARDIOGRAM REPORT Name: BETTYE MAYA Room #: 212- ADM IN M.R.#: [id number] Admission: 01/09/18 Attend Phys: Melvin Hernandez MD Discharge: Date of : 42 Report #: [id number] THIS REPORT FOR: //name// 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 : 1940 Requested By: Madi Gonzalez Order Number: [id number] MD: Yvon Sanz Measurements Intervals [place] Rate: 69 P: 56 MS: 252 QRS: -47 QRSD: 150 T: 97 QT: 460 QTc: 493 Interpretive Statements Sinus rhythm Prolonged [place] interval Left bundle branch block Compared to ECG 12/15/2017 08:19:26 Left bundle-branch block now present Left anterior fascicular block no longer present Electronically Signed On 01-12-2018 17:12:03 CDT by Yvon Sanz [email or web address] <ELECTRONICALLY SIGNED> By: Yvon Sanz MD 01/12/18 1712 1259 1259 Yvon Sanz MD /EPI
[~2018-01-09 08:14] MED LIST changes: +ALEVE220 MG PO; +CARDIZEM CD120 MG PO; +CIPRO500 MG PO; +FLOMAX0.4 MG PO; +GLYBURIDE 2.52.5 MG PO; +SENSIPAR 30 MG30 M1 PO; +TRESIBA FL100 UNIT/1 SUBQ
[2018-01-09 08:17] VITALS: BP 192/79
[2018-01-09 08:58] LABS: HEMATOCRIT 31.4 % (42.0-52.0); HEMOGLOBIN 10.6 gm/dL (14.0-18.0); MCHC 33.8 g/dL (28.0-37.0); MCV 91.7 fL (80.0-100.0); RBC 3.42 mil/uL (4.50-6.00); RDW 13.5 % (10.5-14.5); WBC 10.1 thou/uL (4.0-11.0)
[2018-01-09 09:03] LABS: ANION GAP 14 mmol/L (7-16); BUN 104 mg/dL (7-18); CALCIUM 9.6 mg/dL (8.5-10.1); CHLORIDE 91 mmol/L (98-107); CO2 23 mmol/L (21-32); CREATININE 10.6 mg/dL (0.7-1.3); GLUCOSE 223 mg/dL (74-106); SODIUM 128 mmol/L (136-145)
[2018-01-09 09:06] LABS: POTASSIUM 6.2 mmol/L (3.5-5.1)
[2018-01-09 09:13] LABS: ALBUMIN 3.3 g/dL (3.4-5.0); SGOT 19 U/L (15-37); SGPT 7 U/L (30-65); TOTAL BILIRUBIN 0.4 mg/dL (<0.1-1.0); TOTAL PROTEIN 8.3 g/dL (6.4-8.2); TROPONIN-I <0.06 ng/mL (<0.06)
[2018-01-09 09:39] VITALS: BP 139/67
[2018-01-09 11:19] VITALS: BP 154/94
[2018-01-09 11:44] VITALS: BP 162/80
[2018-01-09 13:51] LABS: TSH 3.003 uIU/mL (0.358-3.740)
[2018-01-09 14:05] LABS: ALBUMIN 3.5 g/dL (3.4-5.0); TOTAL PROTEIN 7.9 g/dL (6.4-8.2)
[2018-01-09 15:20] VITALS: BP 137/64
[2018-01-09 19:55] VITALS: BP 145/64
[2018-01-10 00:45] VITALS: BP 188/69
[2018-01-10 03:03] VITALS: BP 150/69
[2018-01-10 03:50] LABS: HEMATOCRIT 28.1 % (42.0-52.0); HEMOGLOBIN 9.5 gm/dL (14.0-18.0); MCH 30.9 pg (26.0-34.0); MCHC 33.8 g/dL (28.0-37.0); MCV 91.5 fL (80.0-100.0); RBC 3.07 mil/uL (4.50-6.00); RDW 13.4 % (10.5-14.5); WBC 8.2 thou/uL (4.0-11.0)
[2018-01-10 03:55] LABS: CALCIUM 9.1 mg/dL (8.5-10.1); MAGNESIUM 2.1 mg/dL (1.8-2.4)
[2018-01-10 03:57] LABS: CREATININE 5.8 mg/dL (0.7-1.3); POTASSIUM 4.8 mmol/L (3.5-5.1)
[2018-01-10 04:06] LABS: HEPATITIS B SURFACE AG Negative (Negative)
[2018-01-10 07:22] VITALS: BP 153/68
[2018-01-10 11:16] VITALS: BP 158/75
[2018-01-10 16:02] VITALS: BP 134/52
[2018-01-10 20:05] VITALS: BP 139/70
[2018-01-10] MEDS ORDERED: NOVOLOG100 UNIT/1 SUBQ (22:23)
[2018-01-10] MEDS ORDERED: TRESIBA FL100 UNIT/1 SUBQ (22:25)
[2018-01-10 22:30] LABS: CALCIUM 8.9 mg/dL (8.5-10.1); POTASSIUM 4.6 mmol/L (3.5-5.1); TROPONIN-I 0.11 ng/mL (<0.06)
[2018-01-10 22:38] LABS: CREATININE 3.7 mg/dL (0.7-1.3)
[2018-01-11 00:46] VITALS: BP 151/61
[2018-01-11 04:49] LABS: CALCIUM 9.2 mg/dL (8.5-10.1); CREATININE 4.2 mg/dL (0.7-1.3); MAGNESIUM 2.1 mg/dL (1.8-2.4); POTASSIUM 4.2 mmol/L (3.5-5.1)
[2018-01-11 04:55] VITALS: BP 140/76
[2018-01-11 05:32] LABS: HEMATOCRIT 29.6 % (42.0-52.0); HEMOGLOBIN 9.8 gm/dL (14.0-18.0); MCH 30.6 pg (26.0-34.0); MCHC 33.2 g/dL (28.0-37.0); MCV 92.1 fL (80.0-100.0); RBC 3.21 mil/uL (4.50-6.00); RDW 13.4 % (10.5-14.5); WBC 8.8 thou/uL (4.0-11.0)
[2018-01-11 08:18] VITALS: BP 173/77
[2018-01-11 09:56] LABS: CHOLESTEROL 226 mg/dL (<200); HDL CHOLESTEROL 41 mg/dL (>40); LDL CHOLESTEROL 140 mg/dL (<100); TC:HDL 5.5 Ratio (Not establshd); TRIGLYCERIDE 228 mg/dL (<150); VLDL 46 mg/dL (<40)
[2018-01-11 09:57] LABS: SERUM ASSESSMENT Clear
[2018-01-11 11:00] VITALS: BP 120/65
[2018-01-11 15:44] VITALS: BP 120/57
[2018-01-11 20:04] VITALS: BP 142/63
[2018-01-12 04:34] LABS: HEMATOCRIT 28.7 % (42.0-52.0); HEMOGLOBIN 9.6 gm/dL (14.0-18.0); MCH 30.8 pg (26.0-34.0); MCHC 33.5 g/dL (28.0-37.0); RBC 3.12 mil/uL (4.50-6.00); RDW 13.5 % (10.5-14.5); WBC 8.4 thou/uL (4.0-11.0)
[2018-01-12 04:41] LABS: CALCIUM 8.9 mg/dL (8.5-10.1); MAGNESIUM 2.2 mg/dL (1.8-2.4); POTASSIUM 4.1 mmol/L (3.5-5.1)
[2018-01-12 04:42] LABS: CREATININE 6.4 mg/dL (0.7-1.3)
[2018-01-12 04:59] VITALS: BP 142/67
[2018-01-12 07:18] VITALS: BP 152/69
[2018-01-12 12:22] VITALS: BP 157/67
[2018-01-12 12:23] VITALS: BP 157/67
[2018-01-12] MEDS ORDERED: CARDIZEM CD240 MG PO (15:31)
[2018-01-12] MEDS ORDERED: LIPITOR 20 MG T20 M1 PO (15:31)
[2018-01-12 15:32] VITALS: BP 129/58
[2018-01-12 16:10] LABS: HBsAG-EMPLOYEE EXPOSURE Negative (Negative); HCV AB-EMPLOYEE EXPOSURE <0.1 (0.0-0.9)
== END 2018-01-12 17:32 | disposition home health service (06) | DRG 291 ==
LOC: ER 08:14 → EROBS 09:32 → 2N 09:32 → ENTRNSPT 01-12 17:16 → 2N 01-12 17:32
PROVIDERS: Emergency Medicine; Hospitalist; Internal Medicine; Internal Medicine Cardiovascular Disease; Nurse Practitioner Acute Care
PROC: 5A1D70Z Performance of Urinary Filtration, Intermittent, Less than 6 Hours Per Day (ICD-10-PCS; principal; 2018-01-09)
PROC: 5A1D70Z Performance of Urinary Filtration, Intermittent, Less than 6 Hours Per Day (ICD-10-PCS; 2018-01-10)
DX: I50.33 Acute on chronic diastolic (congestive) heart failure (principal); N18.6 End stage renal disease; I47.2 Ventricular tachycardia; I13.2 Hypertensive heart and chronic kidney disease with heart failure and with stage 5 chronic kidney disease, or end stage renal disease; E87.1 Hypo-osmolality and hyponatremia; E87.70 Fluid overload, unspecified; I44.7 Left bundle-branch block, unspecified; E11.22 Type 2 diabetes mellitus with diabetic chronic kidney disease; M19.90 Unspecified osteoarthritis, unspecified site; E87.5 Hyperkalemia; Z96.652 Presence of left artificial knee joint; E78.5 Hyperlipidemia, unspecified; D63.8 Anemia in other chronic diseases classified elsewhere; Z99.2 Dependence on renal dialysis; Z87.01 Personal history of pneumonia (recurrent); Z86.73 Personal history of transient ischemic attack (TIA), and cerebral infarction without residual deficits; Z98.42 Cataract extraction status, left eye; Z79.82 Long term (current) use of aspirin; Z79.899 Other long term (current) drug therapy; Z79.4 Long term (current) use of insulin; Z87.891 Personal history of nicotine dependence; Z82.49 Family history of ischemic heart disease and other diseases of the circulatory system; Z83.3 Family history of diabetes mellitus
CPT/HCPCS: 10081; 32100

== ENCOUNTER → 2018-06-19 | Outpatient (CLI) | payer OTHER ==
[~2018-06-19] MED LIST changes: +CARDIZEM CD240 MG PO; +LIPITOR 20 MG T20 M1 PO
== END ==
LOC: RAD 10:30
DX: I51.7 Cardiomegaly (principal)

== ENCOUNTER 2018-09-03 05:06 | Emergency (ER) | payer OTHER ==
[~2018-09-03] VITALS: Ht 162.6 cm; Wt 79.4 kg
[2018-09-03 06:01] LABS: HEMATOCRIT 39.6 % (42.0-52.0); MCH 29.8 pg (26.0-34.0); MCHC 32.9 g/dL (28.0-37.0); MCV 90.8 fL (80.0-100.0); PLATELET COUNT 268 thou/uL (150-400); RBC 4.36 mil/uL (4.50-6.00); WBC 7.7 thou/uL (4.0-11.0)
[2018-09-03 06:04] LABS: CALCIUM 8.6 mg/dL (8.5-10.1); CREATININE 5.8 mg/dL (0.7-1.3); POTASSIUM 4.4 mmol/L (3.5-5.1)
[2018-09-03 06:10] LABS: ALBUMIN 3.3 g/dL (3.4-5.0); DIRECT BILIRUBIN 0.1 mg/dL (<0.1-0.3); MAGNESIUM 1.9 mg/dL (1.8-2.4); PHOSPHORUS 3.9 mg/dL (2.5-4.9); TOTAL BILIRUBIN 0.4 mg/dL (<0.1-1.0); TOTAL PROTEIN 8.3 g/dL (6.4-8.2)
[2018-09-03 06:36] LABS: ABSOLUTE NEUTROPHILS 4.6 thou/uL (1.4-8.2)
[2018-09-03 06:37] LABS: ANISOCYTOSIS 1+; PLATELET ESTIMATE NORMAL; POLYCHROMASIA 1+
[2018-09-03] MEDS ORDERED: ATIVAN0.5 M1 PO (07:01)
[2018-09-03 07:25] VITALS: BP 121/55
== END 2018-09-03 07:27 | disposition home or self-care (01) ==
LOC: ER 05:06
PROVIDERS: Emergency Medicine
DX: R25.1 Tremor, unspecified (principal); R53.1 Weakness; I12.0 Hypertensive chronic kidney disease with stage 5 chronic kidney disease or end stage renal disease; E11.22 Type 2 diabetes mellitus with diabetic chronic kidney disease; N18.6 End stage renal disease; E11.40 Type 2 diabetes mellitus with diabetic neuropathy, unspecified; M19.90 Unspecified osteoarthritis, unspecified site; Z86.2 Personal history of diseases of the blood and blood-forming organs and certain disorders involving the immune mechanism; Z86.73 Personal history of transient ischemic attack (TIA), and cerebral infarction without residual deficits; Z87.01 Personal history of pneumonia (recurrent); Z99.2 Dependence on renal dialysis; Z79.4 Long term (current) use of insulin; Z87.891 Personal history of nicotine dependence

== ENCOUNTER 2018-11-13 05:07 | Inpatient (IN) | payer OTHER ==
[~2018-11-13] VITALS: Ht 165.1 cm; Wt 78.9 kg
[2018-11-13] VITALS (10 sets, daily range): BP systolic 112–194; BP diastolic 53–93
--- NOTE | ~2018-11-13 | HC ---
[facility] [place] [address] CONSULTATION Name: BETTYE MAYA Room #: 423-1 ADM IN M.R.#: [id number] Admission: 11/13/18 ������������������ Attend Phys: Darrell Tobar MD Discharge: ������������������ Date of : 41 Report #: [id number] THIS REPORT FOR: //name// CC: Dm Tobar REASON FOR THE PRESENTATION: Abdominal pain. HISTORY OF PRESENT ILLNESS: A 78-year-old, who has an end-stage renal disease, maintained on hemodialysis every Friday, Friday and Friday. He presented to the Emergency Room reporting that he has been having lower abdominal pain. This was localized in the right lower side of his abdomen. This was associated with some nausea. He is one of my dialysis patient and he has been maintained on dialysis for the last few years. He is dialyzing every Friday, Friday and Friday. Initial laboratory investigations revealed an acute appendicitis without an abscess or perforation. The patient was taken to the OR and had a successful appendectomy. I am being consulted to manage his end-stage renal disease. PAST MEDICAL HISTORY: 1. Diabetes mellitus. 2. Hypertension. 3. Cataract surgery. 4. End-stage renal disease, maintained on hemodialysis. 5. TIA in the past. MEDICATIONS: 1. Insulin. 2. Aspirin. 3. Carvedilol. 4. Sensipar. SOCIAL HISTORY: He is an ex-smoker. No drug or alcohol abuse. He lives with his family. REVIEW OF SYSTEMS: GENERAL: No fever, but has some weakness. CARDIOVASCULAR: No chest pain or palpitation. PULMONARY: No cough or hemoptysis. GASTROINTESTINAL: As per history of present illness. MUSCULOSKELETAL: Occasional back pain. SKIN: No rash or ulcerations. NEUROLOGICAL: No headache. No dizziness. ALLERGIES: None. PHYSICAL EXAMINATION: [facility] [address] [place] [address] CONSULTATION Name: BETTYE MAYA Room #: 423-1 [facility] IN [place].#: [id number] Admission: 11/13/18 ������������������ Attend Phys: Darrell Tobar MD Discharge: ������������������ Date of : 42 Report #: [id number] GENERAL: The patient is alert, oriented, in no apparent distress. VITAL SIGNS: Most recent blood pressure is 134/51. HEAD AND NECK: No jugular venous distention, no bruit, no thyromegaly. CHEST: Clear to auscultation bilaterally. CARDIOVASCULAR: Regular with no rub detected. ABDOMEN: Slight tenderness at the surgical site. LOWER EXTREMITIES: No edema. LABORATORY VALUES: From yesterday revealed a white blood cell count of 12.9. Sodium is 132. Potassium is 5.1, BUN is 68, creatinine is 6.9, and glucose is 267. ASSESSMENT, IMPRESSION AND PLAN: 1. End-stage renal disease. 2. Post-appendectomy. 3. Diabetes mellitus. 4. Hypertension. 5. The patient received his full dialysis treatment yesterday without any problems. 6. Post-appendectomy care. 7. Resume blood pressure medication. 8. Watch blood sugar and resume blood sugar medication. 9. Stable for discharge from my perspective. ��������������������������������������������� ���������������������������������������� By: ��������������������������������������������� 0717 0850 Candelaria Loera MD /nt
--- NOTE | ~2018-11-13 | O ---
[facility] [place] [address] OPERATIVE REPORT Name: BETTYE MAYA Room #: 423-1 ADM IN M.R.#: [id number] Admission: 11/13/18 ������������������ Attend Phys: Darrell Tobar MD Discharge: ������������������ Date of : 41 Report #: [id number] THIS REPORT FOR: //name// CC: Dm Tobar DATE OF SERVICE: 11/13/2018 PREOPERATIVE DIAGNOSIS: Acute appendicitis. POSTOPERATIVE DIAGNOSIS: Acute perforated appendicitis. PROCEDURE: Laparoscopic converted to open appendectomy. SURGEON: Isiah Capps MD ANESTHESIA: General. ESTIMATED BLOOD LOSS: Minimal. SPECIMEN: Appendix. DESCRIPTION OF PROCEDURE: After informed consent was obtained, the patient was brought to the operating room and placed supine. SCDs were placed and working, preoperative antibiotics were administered, general anesthesia was induced. The abdomen was prepped and draped in the usual sterile fashion. A 5 mm incision was made in the left upper quadrant. A 5 mm trocar was placed under direct vision. The patient had abdominal surgery including a pancreatic debridement. There was no room to work in the left upper quadrant. I therefore elected to undergo open appendectomy. An incision was made in the right lower quadrant. This was at McBurney's point. This was a transverse incision. Cautery dissection was made down to the fascia, which was incised. The rectus muscle was reflected medially. The peritoneum was incised. I was able to grasp the appendix and retracted through the opening. It was perforated. The mesoappendix was then ligated using a 3-0 Vicryl tie. I then clamped the base of the appendix and excised the appendix. The base of the appendix was sutured with a 3-0 Vicryl stitch in a stick tie fashion. I then stick tied again with a 3-0 PDS suture. The abdomen was irrigated with normal saline. The peritoneum and posterior fascia were reapproximated with 0 PDS in running fashion. The anterior fascia was reapproximated with 0 PDS in running fashion as well. The skin was closed with 4-0 Monocryl. Incisions were dressed with Steri-Strips and gauze. Sterile dressings were applied. COMPLICATIONS: None. [facility] [address] [place] [address] OPERATIVE REPORT Name: BETTYE MAYA Room #: 423-1 ADM IN M.R.#: [id number] Admission: 11/13/18 ������������������ Attend Phys: Darrell Tobar MD Discharge: ������������������ Date of : 41 Report #: [id number] DISPOSITION: The patient was taken to recovery in satisfactory condition. ��������������������������������������������� ���������������������������������������� By: ��������������������������������������������� 1754 00 Isiah Capps MD /nt
[~2018-11-13 05:07] MED LIST changes: +ATIVAN0.5 M1 PO
[2018-11-13 06:00] LABS: ABSOLUTE NEUTROPHILS 10.7 thou/uL (1.4-8.2); BASOPHILS 0.7 % (0.0-2.0); EOSINOPHILS 0.7 % (0.0-3.0); HEMATOCRIT 38.2 % (42.0-52.0); HEMOGLOBIN 12.7 gm/dL (14.0-18.0); LYMPHOCYTES 10.2 % (24.0-44.0); MCH 30.2 pg (26.0-34.0); MCHC 33.2 g/dL (28.0-37.0); MCV 90.8 fL (80.0-100.0); MONOCYTES 5.4 % (1.0-8.0); PLATELET COUNT 260 thou/uL (150-400); RBC 4.21 mil/uL (4.50-6.00); RDW 16.9 % (10.5-14.5); WBC 12.9 thou/uL (4.0-11.0)
[2018-11-13 06:09] LABS: ANION GAP 11 mmol/L (7-16); BUN 68 mg/dL (7-18); CALCIUM 9.1 mg/dL (8.5-10.1); CHLORIDE 93 mmol/L (98-107); CO2 28 mmol/L (21-32); CREATININE 6.9 mg/dL (0.7-1.3); GLUCOSE 267 mg/dL (74-106); POTASSIUM 5.1 mmol/L (3.5-5.1); SODIUM 132 mmol/L (136-145)
[2018-11-13 06:19] LABS: ALBUMIN 3.5 g/dL (3.4-5.0); LIPASE 429 U/L (73-393); SGOT 13 U/L (15-37); SGPT 14 U/L (30-65); TOTAL BILIRUBIN 0.7 mg/dL (<0.1-1.0); TOTAL PROTEIN 8.1 g/dL (6.4-8.2); TROPONIN-I <0.06 ng/mL (<0.06)
[2018-11-13 06:58] LABS: URINE BILIRUBIN NEGATIVE (Negative); URINE BLOOD 2+ (Negative); URINE CLARITY CLEAR; URINE COLOR YELLOW; URINE GLUCOSE-RANDOM* TRACE (Negative); URINE KETONES NEGATIVE (Negative); URINE LEUKOCYTES-REFLEX TRACE (Negative); URINE NITRITE-REFLEX NEGATIVE (Negative); URINE PROTEIN (DIPSTICK) 2+ (Negative); URINE SPECIFIC GRAVITY 1.015 (1.005-1.035); URINE UROBILINOGEN 0.2 E.U./dl (0.2-1.0)
[2018-11-13 07:09] LABS: CASTS None Seen /LPF (None Seen); SQUAMOUS 4-10 Moderate /LPF (0-3)
[2018-11-13 07:10] LABS: BACTERIA-REFLEX 1-9 Few /HPF (None Seen); CRYSTALS None Seen /LPF (None Seen); URINE RBC 0-2 Rare /HPF (0-2); URINE WBC-REFLEX 0-5 Rare /HPF (0-5)
--- NOTE | 2018-11-13 09:22 | EKG ---
[address] [place] [address] ELECTROCARDIOGRAM REPORT Name: BETTYE MAYA Room #: 170-10 ADM IN M.R.#: [id number] ������������������ Admission: 11/13/18 ������������������ Attend Phys: Darrell Tobar MD Discharge: ������������������ Date of : 42 Report #: [id number] ����������������������������������������������������������������� [id number] THIS REPORT FOR: //name// 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 Coordinator: GIORGIO : 1940 Requested By: Daniel Wakefield Order Number: [id number] MD: Thomas Burton Measurements Intervals [place] Rate: 71 P: 29 AL: 228 QRS: -50 QRSD: 112 T: 81 QT: 451 QTc: 491 Interpretive Statements Sinus rhythm Prolonged [place] interval Left anterior fascicular block Anteroseptal infarct, old Compared to ECG 01/11/2018 07:56:29 No significant change was found Electronically Signed On 11-13-2018 9:22:11 CDT by Thomas Burton [email or web address] ��������������������������������������������� <ELECTRONICALLY SIGNED> ���������������������������������������� By: Thomas Burton MD, [facility] ��������������������������������������������� 11/13/18 0922 0533 0533 Thomas Burton MD, [facility] /EPI
[2018-11-13 22:10] LABS: HEPATITIS B SURFACE AG Negative (Negative)
--- NOTE | 2018-11-14 03:38 | NUR ---
PT ARRIVED FROM POST OP APPROX. 1999. PT ALERT AND ORIENTED. REASSESSMENT COMPLETE. VSS. REPORST PAIN, SEE EMAR. JOHANS N/V. RESUMED DIET. CALL LIGHT WITHIN REACH, WILL CONTINUE POC UNTIL EOS.
[2018-11-14 04:08] VITALS: BP 134/51
[2018-11-14] MEDS ORDERED: IMDUR 30 MG TAB30 M1 PO (04:47)
[2018-11-14 08:01] VITALS: BP 134/59
[2018-11-14 09:53] LABS: ABSOLUTE NEUTROPHILS 11.6 thou/uL (1.4-8.2); BASOPHILS 0.1 % (0.0-2.0); HEMATOCRIT 37.6 % (42.0-52.0); LYMPHOCYTES 4.5 % (24.0-44.0); MCH 29.6 pg (26.0-34.0); MCHC 31.8 g/dL (28.0-37.0); MCV 93.1 fL (80.0-100.0); MONOCYTES 2.5 % (1.0-8.0); PLATELET COUNT 238 thou/uL (150-400); POLYS 92.9 % (36.0-66.0); RBC 4.04 mil/uL (4.50-6.00); RDW 17.6 % (10.5-14.5); WBC 12.5 thou/uL (4.0-11.0)
--- NOTE | 2018-11-14 12:40 | NUR ---
PATIENT CARE WAS ASSUMED AT 0715.PATIENT IS ALERT AND ORIENTED X4. PATIENT HAS O2 MONITOR HOOKED UP DUE TO SATS DROPPING AT NIGHT TO THE HIGH 80'S.PT IS CURRENTLY ON O2 AT 2L NC.PATIENT IS ABLE TO AMBULATE ON HIS OWN. NO COMPLAINS OF PAIN AT THIS TIME.PATIENT HAS ASKED FOR STOOL SOFTNER WILL FOLLOW UP WITH HOSPITALIST ON MEDICATIONS SO PATIENT CAN HAVE A BOWEL MOVEMENT.PT HAS CALL LIGHT,PHONE AND PERSONAL BELONGINGS WITHIN REACH.
--- NOTE | 2018-11-14 12:53 | NUR ---
PATIENT HAS BEEN RUNNING HIGH BLOOD SUGARS.DOCTOR WAS INFORMED OF PATIENT'S SUGARS TODAY AND HIS TREND OF BLOODS BEFORE AND HOW THE PATIENT IS SET FOR A LOW SLIDING SCALE.DOCTOR STATED THAT HE WILL TAKE A LOOK AND RE-EVALUATE HIS SLIDING SCALE ORDERS.
[2018-11-14 17:22] VITALS: BP 139/71
[2018-11-14 20:43] VITALS: BP 121/56
--- NOTE | 2018-11-15 04:59 | NUR ---
ASSUMED PT CARE 1899. PT ALERT AND ORIENTED. REASSESSMENT COMPLETE. VSS. IV DRESSING C/D/I. DOUG PAIN. DENIES N/V. CALL LIGHT WITHIN REACH. WILL CONTINUE POC UNTIL EOS.
[2018-11-15 05:52] VITALS: BP 139/61
[2018-11-15 07:53] VITALS: BP 142/68
[2018-11-15] MEDS ORDERED: ACETAMINOPHEN325 M1 PO (13:53)
[2018-11-15] MEDS ORDERED: HYDROCODON-ACE1 EAC7 PO (13:53)
[2018-11-15] MEDS ORDERED: COLACE 100 MG100 MG PO (13:53)
[2018-11-15 14:16] VITALS: BP 142/68
--- NOTE | 2018-11-15 16:48 | NUR ---
Assumed care of pt at 0700. Pt a&ox4. Dressing on surgical incision clean and intact. IV anmtibiotics infused. Pt ambulates with steady gait. Pt waiting for his to come pick him up and discharge to home.
--- NOTE | 2018-11-17 15:07 | PATH ---
[facility] [address] [place] [address] PATHOLOGY RPT PROCEDURE Name: BETTYE AGUIRRE Room #: 423-1 DIS IN M.R.#: [id number] ������������������ Admission: 11/13/18 ������������������ Date of : 41 Discharge: 11/15/18 Report #: [id number] Path Case #: [id number] [facility] Accession Number: [id number] . 01 Material submitted: . appendix - APPENDIX . 01 Clinical history: . Acute appendicitis . 02 Diagnosis: Appendix, appendectomy: - Marked acute appendicitis along with marked acute serositis. - Fibrous obliteration of the tip. (IUV/db; 11/17/2018) LBQ/11/17/2018 . 02 Electronically signed: . Alondra Morel MD, Pathologist NPI- [id number] . 01 Gross description: . Received in formalin, labeled "Carlin Aguirre, appendix ", is a diffusely hemorrhagic, necrotic appendix (7.2 cm length x 1.0 cm diameter) and attached mesoappendix (7.0 x 2.6 x 1.0 cm). The proximal resection margin is open. The adjacent serosa is inked black. The serosa is diffusely hemorrhagic and covered by fibrinopurulent exudate and no discrete perforation. The lumen dilated and filled with hemorrhagic friable material and no discrete fecalith. The wall has an average thickness of 0.1 cm. The kishore-appendiceal soft tissue has a yellow cut surface. Representatively submitted in A1-A2 (A2 = tips). (SWS; 11/16/2018) SHS/SHS . 02 Pathologist provided ICD-10: K35.80, K65.8 . 02 CPT . 079364 Specimen Comment: A courtesy copy of this report has been sent to Specimen Comment: [phone], , . Specimen Comment: Report sent to ,DR WATERMAN / DR POLANCO Performed at: [address] [id number] MD Ashok Emery MD Phone: [phone] Performed at: [address] [address] PATHOLOGY RPT PROCEDURE Name: BETTYE AGUIRRE Room #: 423-1 DIS IN M.R.#: [id number] ������������������ Admission: 11/13/18 ������������������ Date of : 42 Discharge: 11/15/18 Report #: [id number] Path Case #: [id number] [address], [place], [place] [id number] MD Alondra Morel MD Phone: [phone]
== END 2018-11-15 17:31 | disposition home or self-care (01) | DRG 338 ==
LOC: ER 05:07 → 4E 07:44 → EROBS 07:44 → 4E 10:21
PROVIDERS: Emergency Medicine; Hospitalist; ADMIT Internal Medicine
DX: K35.32 Acute appendicitis with perforation, localized peritonitis, and gangrene, without abscess (principal); N18.6 End stage renal disease; I12.0 Hypertensive chronic kidney disease with stage 5 chronic kidney disease or end stage renal disease; E11.22 Type 2 diabetes mellitus with diabetic chronic kidney disease; M19.90 Unspecified osteoarthritis, unspecified site; Z86.73 Personal history of transient ischemic attack (TIA), and cerebral infarction without residual deficits; Z79.899 Other long term (current) drug therapy; Z99.2 Dependence on renal dialysis; Z98.42 Cataract extraction status, left eye; Z87.01 Personal history of pneumonia (recurrent); Z79.82 Long term (current) use of aspirin; Z87.891 Personal history of nicotine dependence; Z79.4 Long term (current) use of insulin; Z82.49 Family history of ischemic heart disease and other diseases of the circulatory system; Z83.3 Family history of diabetes mellitus; Z53.31 Laparoscopic surgical procedure converted to open procedure
CPT/HCPCS: 10084; 32100; 50010; 50101; 50411; 50555; 51489; 52266; 53307; 53312; 53314; 56524; 56525; 56526; 56527; 62110; 62900; 70005

== ENCOUNTER 2020-01-19 15:29 | Inpatient (IN) | payer OTHER ==
[~2020-01-19] VITALS: Ht 165.1 cm; Wt 81.0 kg
--- NOTE | ~2020-01-19 | HC ---
[facility] [place] [address] CONSULTATION Name: BETTYE MAYA Room #: 212-P ADM IN M.R.#: [id number] Admission: 01/19/20 Attend Phys: Siva Hobson MD Discharge: Date of : 41 Report #: [id number] THIS REPORT FOR: cc: Dm To MD, Gerald M. MD Smithson, David G. MD ~ DATE OF SERVICE: 01/31/2020 HISTORY OF PRESENT ILLNESS: The patient is a 79-year-old male with history of dialysis for the last couple of years, who was admitted with chest pain while on dialysis. He was noted to have sustained ventricular tachycardia, he was given amiodarone with conversion to sinus rhythm. He underwent evaluation, was noted to have severe multivessel coronary artery disease and underwent coronary artery bypass grafting x 6 on 01/24/2020. He had some bradycardia postoperatively. His beta severino was held. He also had SVT noted on 01/25/2020 while he was undergoing dialysis and was given amiodarone. He is noted to have medical complexity with generalized debilitation. We are seeing him in rehabilitation medicine consultation. PAST MEDICAL HISTORY: Includes insulin-dependent diabetes mellitus, hypertension, pneumonia, end-stage renal disease. ALLERGIES: No known drug allergies. MEDICATIONS: Please see the full medication listing. SOCIAL HISTORY: Lives in a house with and son, one step in. Did not utilize gait aids, although he had a walker. He was noted to drive. 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 REVIEW OF SYSTEMS: No current complaints of chest pain, shortness of breath or abdominal discomfort. Complains of overall generalized weakness. PHYSICAL EXAMINATION: GENERAL: A 79-year-old male in no obvious distress. VITAL SIGNS: Temperature 36.4, pulse 65, respirations 18, blood pressure 116/47. He is alert, pleasant, appears appropriate. HEENT: Appeared to be benign. NEUROLOGIC: Cranial nerves are grossly intact. Facies are symmetric. He has a midline sternal incision, which is dressed. I saw him while he was undergoing dialysis. EXTREMITIES: Functional range of motion of the upper extremity on the right. Strength is probably a grade 3+/5, left upper extremity has the dialysis catheter. I just did a limited testing. Appears to have at least antigravity strength. In his lower extremities, he has got an old left knee incision from a [facility] [address] [place] [address] CONSULTATION Name: BETTYE MAYA Room #: 212-P [facility] IN M.R.#: [id number] Admission: 01/19/20 Attend Phys: Siva Hobson MD Discharge: Date of : 42 Report #: [id number] prior total knee replacement. No focal calf swelling. No significant distal lower extremity edema. Strength is probably grade 3+/5 to 4-/5. DTRs are trace to 1. He has been mod assist sit to stand and is ambulated mod assist just a couple of small steps with transfers. Tends to fatigue quickly. He is on sternal precautions. ASSESSMENT: A 79-year-old male with the following problem list: 1. Medical complexity with generalized debilitation. 2. Multivessel severe coronary artery disease, status post coronary artery bypass grafting x 6 on 01/24/2020. 3. Status post non-ST elevation myocardial infarction. 4. Status post SVT with aberrancy pseudoseizure. 5. Anemia, thought to be secondary to recent surgery. 6. Acute hypoxemic respiratory failure, extubated, following with oxygen needs. 7. Hypotension, off pressors. 8. Acute metabolic encephalopathy, noted to be slowly improving. 9. End-stage renal disease. PLAN: Insurance precertification issues to be checked. He does have the acute metabolic encephalopathy that we are assessing. He has generalized weakness. multiple community resource consultant physicians that are involved. He would benefit from an acute in-hospital inpatient rehabilitation stay where the multiple community resource consultant physicians can continue to follow with him and where he can improve further regarding his strength, mobility, ADL and cognitive improvements. Insurance precertification issues to be checked in too. We will be glad to follow along with you. By: 1133 1343 Rajesh Yu MD /[facility]
[~2020-01-19 15:29] MED LIST changes: +ACETAMINOPHEN325 M1 PO; +COLACE 100 MG100 MG PO; +HYDROCODON-ACE1 EAC7 PO
[2020-01-19 15:32] VITALS: BP 123/75
--- NOTE | 2020-01-19 15:47 | NUR ---
PT EKG CONVERTED TO SLOWER VT RATE OF 115 AT THIS TIME WITH SUPRAVENTRICULAR ECTOPY NOTED INFREQUENTLY
--- NOTE | 2020-01-19 15:51 | NUR ---
EKG TRANSITIONED TO ST AT RATE OF 115
[2020-01-19 15:55] LABS: ABSOLUTE NEUTROPHILS 7.5 thou/uL (1.4-8.2); BASOPHILS 0.7 % (0.0-2.0); EOSINOPHILS 1.7 % (0.0-3.0); HEMATOCRIT 46.3 % (42.0-52.0); HEMOGLOBIN 15.8 gm/dL (14.0-18.0); LYMPHOCYTES 23.5 % (24.0-44.0); MCH 32.9 pg (26.0-34.0); MCHC 34.1 g/dL (28.0-37.0); MCV 96.6 fL (80.0-100.0); MONOCYTES 10.8 % (1.0-8.0); PLATELET COUNT 291 thou/uL (150-400); POLYS 63.3 % (36.0-66.0); RDW 15.1 % (10.5-14.5); WBC 11.9 thou/uL (4.0-11.0)
[2020-01-19] MEDS ORDERED: RENVELA800 MG PO (15:58)
[2020-01-19 16:13] LABS: ANION GAP 15 mmol/L (7-16); BUN 18 mg/dL (7-18); CALCIUM 9.3 mg/dL (8.5-10.1); CHLORIDE 93 mmol/L (98-107); CO2 26 mmol/L (21-32); CREATININE 3.8 mg/dL (0.7-1.3); GLUCOSE 168 mg/dL (74-106); POTASSIUM 4.3 mmol/L (3.5-5.1); SODIUM 134 mmol/L (136-145)
[2020-01-19 16:23] LABS: ALBUMIN 3.7 g/dL (3.4-5.0); DIRECT BILIRUBIN < 0.1 mg/dL (<0.1-0.2); SGOT 19 U/L (15-37); SGPT 20 U/L (30-65); TOTAL BILIRUBIN 0.4 mg/dL (0.2-1.0); TOTAL PROTEIN 9.4 g/dL (6.4-8.2); TROPONIN-I <0.06 ng/mL (<0.06)
[2020-01-19 17:04] LABS: CHOLESTEROL 220 mg/dL (<200); HDL CHOLESTEROL 71 mg/dL (>40); LDL CHOLESTEROL 101 mg/dL (<100); TC:HDL 3.1 Ratio (Not establshd); TRIGLYCERIDE 241 mg/dL (<150); VLDL 48 mg/dL (<40)
[2020-01-19 18:27] VITALS: BP 123/65
[2020-01-19 19:58] VITALS: BP 112/85
[2020-01-19 20:15] VITALS: BP 127/54
[2020-01-19 23:21] VITALS: BP 120/59
[2020-01-20] VITALS (16 sets, daily range): BP systolic 115–138; BP diastolic 55–77
--- NOTE | 2020-01-20 01:45 | NUR ---
pt arrived at the unit at around 2014, pt is awake, alert and orientedx4, denies chest pain during admission asessment, sr/1davb, admission assessment completed and as charted, vss, reported chest pain of a 6/10 around midnight, oxygen at 2 l via nasal canula given, with partial relief, outpatient therapist notified, orders received for morphine, morphine given, reassessment pain 04/30, remains npo for cath in the am, consent form obtained, meds given as per jun, denies other conserns, resting in bed at this time, will continue to monitor
[2020-01-20 04:55] LABS: HEMATOCRIT 42.9 % (42.0-52.0); HEMOGLOBIN 14.6 gm/dL (14.0-18.0); MCH 33.4 pg (26.0-34.0); MCHC 34.1 g/dL (28.0-37.0); RBC 4.37 mil/uL (4.50-6.00); WBC 9.8 thou/uL (4.0-11.0)
[2020-01-20 05:01] LABS: ALBUMIN 3.3 g/dL (3.4-5.0); CALCIUM 8.4 mg/dL (8.5-10.1); PHOSPHORUS 4.2 mg/dL (2.5-4.9)
[2020-01-20 05:07] LABS: GLYCOHEMOGLOBIN (HGB A1C) 9.3 % (4.8-5.6)
[2020-01-20 05:14] LABS: CREATININE 5.8 mg/dL (0.7-1.3)
[2020-01-20 05:15] LABS: POTASSIUM 6.6 mmol/L (3.5-5.1)
--- NOTE | 2020-01-20 07:50 | EKG ---
[facility] [place] [address] ELECTROCARDIOGRAM REPORT Name: BETTYE MAYA Room #: 214-P ADM IN M.R.#: [id number] Admission: 01/19/20 Attend Phys: Siva Hobson MD Discharge: Date of : 42 Report #: [id number] THIS REPORT FOR: cc: Dm To MD, Gerald M. MD Lundgren, Craig H. 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 : 1940 Requested By: Ivette Reed Order Number: [id number] MD: Thomas Burton Measurements Intervals [place] Rate: 175 P: 0 [place]: QRS: -76 QRSD: 144 T: 127 QT: 296 QTc: 505 Interpretive Statements Extreme tachycardia with wide complex, probably ventricular tachycardia Compared to ECG 11/13/2018 05:33:42 Wide-complex tachycardia is now present Electronically Signed On 01-20-2020 7:50:21 CDT by Thomas Burton [email or web address] <ELECTRONICALLY SIGNED> By: Thomas Burton MD, [facility] 01/20/20 0750 1523 1523 Thomsa Burton MD, [facility] /EPI
--- NOTE | 2020-01-20 08:07 | NUR ---
PT POTASSIUM THIS MORNING WAS 6.6, NEPHROLOGY NOTIFIED, ORDERS RECEIVED AND GIVEN PER JUN, ORDER TO RECHECK AT 0900, PASSED ON REPORT TO DAY NURSE
--- NOTE | 2020-01-20 10:03 | NUR ---
PT. ON DIALYSIS AT THIS TIME. WILL GO TO DISTANCE EDUCATION COORDINATOR LATER ON TODAY ACCORDING TO DR HIDALGO WHO SAW HIM THIS AM. WILL HAVE AN ABLATION TOMORROW. DENIES ANY PAIN AT PRESENT, NO CHEST PAIN AND NDR WITH BBB AND DELAYS, OCCASIONAL PVC'S OBSERVED WELL. WATCHING TV AND COOPERTAIVE WITH CARE PLAN FOR THE DAY AND GOALS.
--- NOTE | 2020-01-20 11:13 | EKG ---
[facility] [place] [address] ELECTROCARDIOGRAM REPORT Name: BETTYE MAYA Room #: 214-P ADM IN M.R.#: [id number] Admission: 01/19/20 Attend Phys: Siva Hobson MD Discharge: Date of : 42 Report #: [id number] THIS REPORT FOR: cc: Dm To MD, Gerald M. 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[facility] 1940 Requested By: Ivette Reed Order Number: [id number] MD: Victoriano Cain Measurements Intervals [place] Rate: 111 P: 211 [place]: 124 QRS: -75 QRSD: 115 T: 105 QT: 367 QTc: 499 Interpretive Statements Sinus or ectopic atrial tachycardia LVH with secondary repolarization abnormality Anterior Q waves, possibly due to LVH Compared to ECG 01/19/2020 15:23:51 Left ventricular hypertrophy now present Early repolarization now present Q waves now present Electronically Signed On 01-20-2020 11:13:27 CDT by Victoriano Cain [email or web address] <ELECTRONICALLY SIGNED> By: Victoriano Cain MD, FACLeonardo 01/20/20 1113 1548 1548 Victoriano Cain MD, [facility] /EPI
--- NOTE | 2020-01-20 16:23 | CATHLAB ---
[facility] [place] [address] INVASIVE PROCEDURE REPORT Name: BETTYE MAYA Room #: 214-P ADM IN M.R.#: [id number] Admission: 01/19/20 Attend Phys: Siva Hobson MD Discharge: Date of : 42 Report #: [id number] THIS REPORT FOR: cc: Dm To MD, Gerald M. MD Park, Jin S. MD ~ APPROVED REPORT Study performed: 01/20/2020 08:02:41 Patient Details Patient Status: In-Patient Room #: The patient is a 79 year-old male Event Personnel Basil Barber Key Account Coordinator, Malcolm Mccollum RN, Jayleen Oseguera RTR Arun Huddleston Roberta Monitor Procedures Performed Coronary Angiography Only [id number] [facility] Art Access - R femoral artery* 42942 Initial Mod Sed Same Phys/QHP Gr5y 289006 Hemostasis with Manual pressure 15188 Mod Sed Same Phys/QHP Ea 352367 Indication Non-STEMI , Arrhythmia, Dyspnea, Chest pain Risk Factors Hypercholesterolemia, Coronary Artery DiseaseHypertensionRenal Failure Procedure Narrative The Right Groin^ was infiltrated with 1% Lidocaine subcutaneous anesthesia. A PINNACLE 4FR Sheath #[id number] sheath was inserted into the RFA^. Coronary angiography was performed using coronary diagnostic catheters. The right coronary system was accessed and visualized with a JR4 catheter. The left coronary system was accessed and visualized with a JL4 catheter. Hemostasis was obtained with manual pressure following sheath removal without any complications. There was no hematoma. Intraoperative Conscious Sedation Sedation start time: 14:43 Case end Time: 15:31 [facility] [address] [place] [address] INVASIVE PROCEDURE REPORT Name: BETTYE MAYA Room #: 214-P [facility] IN [facility] [place]#: [id number] Admission: 01/19/20 Attend Phys: Siva Hobson MD Discharge: Date of : 42 Report #: [id number] Fluoro Time: 5.80 minutes Dose: DAP 6621.00 cGycm2 1498 mGy Contrast Type and Amount: Omnipaque 70 ml Coronary Angiography The patient's coronary anatomy is co- dominant. Diagnostic Cath Left Main Left main artery is a large-caliber vessel with a mild to moderate distal stenosis. LAD The LAD has moderate calcifications in the proximal mid segments. This is a moderate-sized caliber vessel, traversing the anterior wall and terminating in the mid inferior segment. There is a severe stenosis in the midsegment, 70%. Diagonal 1 This is a moderate-sized caliber vessel with a 50% stenosis at the ostium. Circumflex The left circumflex artery is a codominant vessel with a severe occlusion in the ostial/proximal segment, 90%. This area is moderately calcified. OM1 This is a moderate-sized caliber vessel, with no flow-limiting lesions. OM2 This is a moderate-sized caliber vessel, with moderate disease proximally. Right Coronary There is moderate diffuse disease in the midsegment, 40 to 50%. R PDA This is a small to moderate-sized caliber vessel, with no flow-limiting lesions. Left Ventriculography Left Ventriculography was not performed. Hemodynamics The aortic pressure is 116/56 mmHg with a mean of 81 mmHg. Conclusion 1. 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 2. Codominant system. 3. Recommend CV surgical consultation. 4. Recommend guideline directed medical therapy and risk factor modification. <ELECTRONICALLY SIGNED> By: Basil Barber MD 01/20/20 1623 22 162 Basil Barber MD /INF
--- NOTE | 2020-01-20 16:32 | NUR ---
14:00 BACK FROM BOOK PUBLISHER , RIGHT GROIN SITE IS HEMATOMA FREE, NO OOZING AND DENIES ANY CHEST PAIN AT PRESENT. WILL CONTINUE TO MONITOR AND INSTRUCTED HIM ON THE USE OF A CALL RM FOR ANYTHING, AGREED TO SUCH.
[2020-01-20 16:38] LABS: ABSOLUTE NEUTROPHILS 7.6 thou/uL (1.4-8.2); BASOPHILS 1.3 % (0.0-2.0); HEMATOCRIT 44.5 % (42.0-52.0); HEMOGLOBIN 14.7 gm/dL (14.0-18.0); LYMPHOCYTES 14.7 % (24.0-44.0); MCH 32.6 pg (26.0-34.0); MCHC 32.9 g/dL (28.0-37.0); MCV 99.2 fL (80.0-100.0); MONOCYTES 11.2 % (1.0-8.0); PLATELET COUNT 259 thou/uL (150-400); POLYS 71.8 % (36.0-66.0); RBC 4.49 mil/uL (4.50-6.00); RDW 15.2 % (10.5-14.5); WBC 10.6 thou/uL (4.0-11.0)
[2020-01-20 16:49] LABS: CREATININE 3.6 mg/dL (0.7-1.3); POTASSIUM 5.3 mmol/L (3.5-5.1)
[2020-01-20 16:53] LABS: ALBUMIN 3.3 g/dL (3.4-5.0); TOTAL BILIRUBIN 0.5 mg/dL (0.2-1.0); TOTAL PROTEIN 8.7 g/dL (6.4-8.2)
[2020-01-20 16:59] LABS: APTT 27.4 Seconds (24.5-32.8); INR 1.1; PROTIME 10.9 Seconds (9.3-11.4)
--- NOTE | 2020-01-20 18:59 | NUR ---
15:00-RIGHT GROIN IS C,D,I NO OOZING, SOFT TO PALPATION AND LEG IS WARM TO TOUCH, NO MOTTLING, CONTINUES TO IMMOBILIZE RIGHT LEG AND REMAINS ON BEDREST. PT CONTINUES TO BE NSR WITH BBB, NO ECTOPY, NO PVC'S.
--- NOTE | 2020-01-20 19:01 | NUR ---
RIGHT GROIN IS C,D,I NO HEMATOMA SOFT TO TOUCH. OFF BEDREST AND AMBULATED TO RETROOM AND BACK TO BED WITH NO ISSUES TO RIGHT GROIN SITE. NSR WITH BBB. NO ECTOPY, NO PVC'S.
[2020-01-20] MEDS ORDERED: TRESIBA FL100 UNIT/1 SUBQ (20:34)
[2020-01-21] VITALS (12 sets, daily range): BP systolic 87–148; BP diastolic 46–89
[2020-01-21 04:06] LABS: GLYCOHEMOGLOBIN (HGB A1C) 9.1 % (4.8-5.6)
--- NOTE | 2020-01-21 04:57 | NUR ---
assumed pt care at the change of shift, pt is awake, alert and orientedx4, assessments as charted, sr/bbb on the monitor denies chest pain, right groin site cdi, no hematoma, still needs urine sample for u/a, attempted couple times, no success, no acute distress noted, will continue to monitor
[2020-01-21 05:27] LABS: HEMATOCRIT 45.6 % (42.0-52.0); HEMOGLOBIN 15.1 gm/dL (14.0-18.0); MCHC 33.1 g/dL (28.0-37.0); MCV 99.7 fL (80.0-100.0); RBC 4.57 mil/uL (4.50-6.00); RDW 15.4 % (10.5-14.5); WBC 11.3 thou/uL (4.0-11.0)
[2020-01-21 05:37] LABS: CALCIUM 9.4 mg/dL (8.5-10.1); POTASSIUM 4.9 mmol/L (3.5-5.1)
[2020-01-21 05:54] LABS: CREATININE 5.1 mg/dL (0.7-1.3)
--- NOTE | 2020-01-21 08:18 | HC ---
[facility] [place] [address] CONSULTATION Name: BETTYE MAYA Room #: 214-P ADM IN M.R.#: [id number] Admission: 01/19/20 Attend Phys: Siva Hobson MD Discharge: Date of : 42 Report #: [id number] THIS REPORT FOR: cc: Dm To MD, Gerald M. MD Al-Absi, Ahmed I. MD ~ CC: Siva Barber DATE OF SERVICE: 01/20/2020 REASON FOR CONSULTATION: End-stage renal disease. REASON FOR PRESENTATION: Irregular heart rate from his dialysis unit. HISTORY OF PRESENT ILLNESS: A 79-year-old who was brought from his dialysis unit as he started to have some abnormal rhythm at the end of his dialysis. His heart rate was found to be 170. It was reported that the patient was in ventricular tachycardia in the Emergency Room. He had extensive past medical history including and not limited to diabetes mellitus, extensive coronary artery disease, history of nonsustained ventricular tachycardia and SVT with aberrancy. Unfortunately, the patient has been very forgetful lately. He was supposed to have a nuclear stress test, but he did not show up for the test. The patient received amiodarone which slowed his rate and his tachycardia resolved. The patient was admitted for further evaluation and management. I was consulted to manage his end-stage related disease issues. PAST MEDICAL HISTORY: 1. End-stage renal disease, maintained on hemodialysis every Friday, Friday and Friday. 2. Diabetes mellitus. 3. Hypertension. 4. Left arm AV fistula. 5. TIA. 6. Dementia. MEDICATIONS: 1. Sevelamer. 2. Insulin. 3. Cinacalcet. 4. Aspirin. 5. Carvedilol. ALLERGIES: None. [facility] [address] [place] [address] CONSULTATION Name: BETTYE MAYA Room #: 214-P [facility] IN [facility].#: [id number] Admission: 01/19/20 Attend Phys: Siva Hobson MD Discharge: Date of : 41 Report #: [id number] SOCIAL HISTORY: Denies drug or alcohol abuse. REVIEW OF SYSTEMS: GENERAL: No fever or chills. CARDIOVASCULAR: As per the history of present illness. PULMONARY: No cough or hemoptysis. GASTROINTESTINAL: No nausea or vomiting. GENITOURINARY: Makes little urine. MUSCULOSKELETAL: No myalgias. No back pain. NEUROLOGICAL: Forgetfulness. FAMILY HISTORY: Significant for diabetes mellitus and hypertension. PHYSICAL EXAMINATION: VITAL SIGNS: Temperature 36.7, blood pressure 123/65, pulse rate is 69. HEAD AND NECK: No jugular venous distention. CHEST: No crackles. CARDIOVASCULAR: No rub. ABDOMEN: Soft, nontender. LOWER EXTREMITIES: No edema. UPPER EXTREMITIES: Left AV fistula. LABORATORY VALUES: Sodium is 132, potassium 6.6, BUN is 32, creatinine is 5.8. Hemoglobin is 14.6. COVID-19 is negative. ASSESSMENT, IMPRESSION AND PLAN: 1. End-stage renal disease. 2. Ventricular tachycardia. 3. Diabetes mellitus. 4. Hypertension. 5. The patient received appropriate treatment for his hyperkalemia yesterday and I will repeat his dialysis today to better control his potassium. 6. Cardiac evaluation. 7. Usual hemodialysis tomorrow. 8. Resume his blood sugar and blood pressure medication. <ELECTRONICALLY SIGNED> By: Candelaria Loera MD 01/21/20 0818 0755 6 Candelaria Loera MD /nt
--- NOTE | 2020-01-21 13:25 | 2DMMODE ---
[facility] [place] [address] 2 D/M-MODE ECHOCARDIOGRAM Name: BETTYE MAYA Room #: 214-P ADM IN M.R.#: [id number] Admission: 01/19/20 Attend Phys: Siva Hobson MD Discharge: Date of : 41 Report #: [id number] THIS REPORT FOR: cc: Dm To MD, Gerald M. MD Santiago, Patrick MD [facility] ~ APPROVED REPORT Study performed: 01/21/2020 12:18:27 EXAM: Comprehensive 2D, Doppler, and color-flow Echocardiogram Patient Location: Bedside Room #: 214 Status: routine BSA: 1.84 HR: 105 bpm BP: 104/52 mmHg Rhythm: Tachycardia Other Information Study Quality: Adequate Indications Pre-Op for CABG. SVT. Hx: SVT, ESRD, HTN, DM. 2D Dimensions RVDd: 28.92 mm IVSd: 13.00 (7-11mm) LVOT Diam: 21.00 (18-24mm) LVDd: 36.00 mm PWd: 13.00 (7-11mm) Ascending Ao: 34.00 (22-36mm) LVDs: 26.70 (25-40mm) Aortic Root: 39.35 mm Volumes Left Atrial Volume (Systole) Single Plane 4CH: 35.93 mL Single Plane 2CH: 47.04 mL LA ESV Index: 23.00 mL/m2 Aortic Valve AoV Peak Brennan.: 2.28 m/s AO Peak Gr.: 20.82 mmHg LVOT Max P.46 mmHg AO Mean Gr.: 11.75 mmHg AO V2 Mean: 1.62 m/s LVOT Max V: 0.78 m/s [facility] [address] [place] [address] 2 D/M-MODE ECHOCARDIOGRAM Name: ALAN MAYAOMARIRocky Room #: [address] [place] [address] [place] ..#: [id number] Admission: 01/19/20 Attend Phys: Siva Hobson MD Discharge: Date of : 41 Report #: [id number] V2 VTI: 32.94 cm MERCEDES Vmax: 1.23 cm2 Mitral Valve E/A Ratio: 0.7 MV Decel. Time: 262.78 ms MV E Max Brennan.: 0.64 m/s MV A Brennan.: 0.98 m/s MV PHT: 76.21 ms IVRT: 72.66 ms Pulmonary Valve PV Peak Brennan.: 1.34 m/s PV Peak Gr.: 7.18 mmHg Pulmonary Vein P Vein S: 0.88 m/s P Vein D: 0.79 m/s P Vein S/D Ratio: 1.11 Tricuspid Valve TR Peak Brennan.: 3.14 m/s RAP Estimate: 5.00 mmHg TR Peak Gr.: 39.45 mmHg PA Pressure: 44.00 mmHg Left Ventricle The left ventricle is normal size. There is normal LV segmental wall motion. Moderate concentric left ventricular hypertrophy. Left ventricular systolic function is normal. LVEF is 55-60%. Mild diastolic dysfunction is present (impaired relaxation pattern). Right Ventricle The right ventricle is normal size. The right ventricular systolic function is normal. Atria The left atrium size is normal. The right atrium size is normal. Aortic Valve The aortic valve is normal in structure. Leaflets are moderately calcified. Trace aortic regurgitation. There is mild to moderate valvular aortic stenosis. Calculated aortic valve area is 1.2 cm2 with maximum pressure gradient of 21 mmHg and mean pressure gradient of 12 mmHg. [facility] [address] [place] [address] 2 D/M-MODE ECHOCARDIOGRAM Name: BETTYE MAYA Room #: 214-P [facility] IN M.R.#: [id number] Admission: 01/19/20 Attend Phys: Siva Hobson MD Discharge: Date of : 42 Report #: [id number] Mitral Valve Mitral valve leaflets are moderately calcified. Mild mitral annular calcification. There is no mitral valve regurgitation noted. No evidence of mitral valve stenosis. Tricuspid Valve The tricuspid valve is normal in structure. Moderate tricuspid regurgitation. Estimated PAP is 45mmHg. Pulmonic Valve Pulmonic valve is not well visualized. There is no pulmonic valvular regurgitation noted. Great Vessels IVC is normal in size and collapses >50% with inspiration. Pericardium There is no pericardial effusion. <Conclusion> Technically difficult study Normal left ventricular size, moderate concentric hypertrophy Preserved systolic function ejection fraction of 55%, no obvious segmental wall motion abnormality Mild aortic valve stenosis, mean gradient of 12 mmHg, aortic valve area estimated 1.2 cm Moderate tricuspid valve insufficiency Moderate pulmonary hypertension, PA pressure of systolic estimated at 45 mmHg Mild mitral annular calcification. <ELECTRONICALLY SIGNED> By: Victoriano Cain MD, FACC 01/21/20 1325 24 24 Victoriano Cain MD, FACC /INF
--- NOTE | 2020-01-21 17:31 | NUR ---
RECEIVED PT'S CARE AROUND 0730; PT. ON BED; ALERT; DIALYSIS STARTING; SR ON THE MONITOR; DURING AM ASSESSMENT NO C/O PAIN; HOLD AM MEDICATIONS DUE TO DIALYSIS; AFTER 1000 PT'S HR ABOVE 100s; BETWEEN 110s-130s; HEAVEN TAVERAS NOTIFIED; ORDERS ON PLACED; MEDICATION GIVEN; HR BELOW 100s AFTER 1300; MONITORING; SR; ST. FEELING CONSTIPATION; NO PRN MEDICATION; PHYSICIAN PAGED; ORDERS RECEIVED; ABLE TO HAVE A BM DURING THE AFTERNOON; EDUCATED ABOUT FLUIDS INTAKE; EDUCATED ABOUT VISITOR POLICIES; UPSET BECAUSE CANNOT VISIT; REQUESTED IV TO BE CHANGED DUE TO NOT ABLE TO REST; EDUCATED ABOUT TRYING IN NEW PLACED IF NOT IV MIGHT HAVE TO STAY; ST. UNDERSTANDING; ASSESSMENT CHARGED; FOLLOWING POC; WILL PASS ON REPORT;
[2020-01-22 00:15] VITALS: BP 93/53
[2020-01-22 02:37] VITALS: BP 93/53
[2020-01-22 04:45] VITALS: BP 101/55
--- NOTE | 2020-01-22 06:46 | NUR ---
assumed pt care at around 1900, pt is awake, alert and orientedx4, sr on the monitor, bp low at the beginning of shift, collection systems consultant notified, orders received, bp better after albumin given onetime, denies chest pain or sob, remained on room air, no distress noted, will pass on report
[2020-01-22 12:11] VITALS: BP 102/47
[2020-01-22 16:27] VITALS: BP 118/56
--- NOTE | 2020-01-22 18:53 | NUR ---
RECEIVED PT. AROUND 0720; PT. ON BED; RESTING WITH EYES CLOSED; EQUAL CHEST RISING NOTICED; SB-SR ON THE MONITOR; DURING AM ASSESSMENT AOX4; NO C/O PAIN; AM MEDICATION GIVEN; COMPLIANCE MONITOR & ASSISTANT FITNESS MANAGER NOTIFIED ABOUT LOW BP DURING THE NIGHT; PER COMPLIANCE MONITOR DECREASE CARVEDILOL DOSE TO HALF; PER ASSISTANT FITNESS MANAGER MONITOR BP; PT. EDUCATED ABOUT FLUID RESTRICTION; ST. UNDERSTANDING; ASSESSMENT CHARGED; FOLLOWING POC; PASSED ON REPORT;
[2020-01-22 20:30] VITALS: BP 102/46
--- NOTE | 2020-01-23 01:26 | NUR ---
ASSESSMENTS CHARTED, MEDS CHARTED GIVEN. PATIENT RESTING IN BED DURING SHIFT. DENIED PAIN. UP AT JONATHAN IN ROOM. PATIENT SCHEDULED FOR DIALYSIS IN THE MORNING. 2.5 LITERS SCHEDULED TO COME OFF. PATIENT IS SCHEDULED FOR CABG ON FRIDAY. DUE TO RECENT HYPOTENSION DURING DIALYSIS, DR. DONATO WANTS TO BE CONTACTED DURING THERAPY IF PROBLEMS ARISE. FALL PRECAUTIONS IN PLACE DURING SHIFT.
[2020-01-23 04:45] VITALS: BP 109/42
[2020-01-23 07:58] VITALS: BP 126/64
[2020-01-23 08:00] VITALS: BP 108/67
[2020-01-23 16:12] VITALS: BP 109/63
[2020-01-23 19:36] VITALS: BP 120/63
[2020-01-24] VITALS (27 sets, daily range): BP systolic 82–128; BP diastolic 43–59
--- NOTE | 2020-01-24 07:19 | NUR ---
ASSESSMENTS CHARTED, MEDS CHARTED GIVEN. PATIENT HAD 2 BED BATHS WITH HEPICLENS WIPES PRIOR TO SURGERY. PATIENT NPO SINCE MIDNIGHT FOR PROCEDURE. PATIENT WAS NOW ON HIGH DOSE SSI. HE WAS 128 AT HS SO RECEIVED 8 UNITS LONG ACTING, 6 UNITS FAST ACTING INSULIN. AT 2300 DURING HIS BATH HE STARTED TO FEEL DIZZY NAD LETHARGIC. CHECKED BG AND IT WAS 31, 2 APPLE JUICES, 1 APPLE JUICE AND PEANUT BUTTER CRACKERS. AT RETEST HE WAS 55. GAVE 2 MORE APPLE JUICES AND MORE PEANUT BUTTER CRACKERS. DENIED PAIN, FALL PRECAUTIONS IN PLACE DURING SHIFT. PRE OP CALLED THIS MORNING FOR REPORT AND COLLECTED FOR SURGERY.
[2020-01-24 13:11] LABS: HEMATOCRIT 25.2 % (42.0-52.0); MCH 33.3 pg (26.0-34.0); MCHC 34.2 g/dL (28.0-37.0); MCV 97.1 fL (80.0-100.0); RBC 2.59 mil/uL (4.50-6.00); RDW 14.7 % (10.5-14.5)
[2020-01-24 13:13] LABS: HEMOGLOBIN 8.6 gm/dL (14.0-18.0)
[2020-01-24 13:29] LABS: APTT 29.6 Seconds (24.5-32.8); FIBRINOGEN 150.4 mg/dL (210-360)
[2020-01-24 13:33] LABS: INR 1.8
[2020-01-24 13:56] LABS: POC BE 2 mmol/L (-2.0 to +3.0); POC CA IONIZED 4.4 mg/dL (4.5-5.3); POC GLUCOSE 244 mg/dL (70-99); POC HCO3 25.5 mmol/L (22.0-26.0); POC SODIUM 131 mmol/L (136-145); POC pH 7.458 (7.360-7.450)
[2020-01-24 13:56] LABS: POC BE 1 mmol/L (-2.0 to +3.0); POC CA IONIZED 4.3 mg/dL (4.5-5.3); POC GLUCOSE 174 mg/dL (70-99); POC HCO3 24.5 mmol/L (22.0-26.0); POC HEMOGLOBIN 13.3 g/dL (14.0-18.0); POC POTASSIUM 3.9 mmol/L (3.5-5.1); POC SODIUM 133 mmol/L (136-145); POC pCO2 34.6 mmHg (35.0-45.0); POC pH 7.458 (7.360-7.450)
[2020-01-24 13:56] LABS: POC BE -1 mmol/L (-2.0 to +3.0); POC CA IONIZED 3.8 mg/dL (4.5-5.3); POC GLUCOSE 137 mg/dL (70-99); POC HEMOGLOBIN 10.2 g/dL (14.0-18.0); POC POTASSIUM 5.4 mmol/L (3.5-5.1); POC SODIUM 131 mmol/L (136-145); POC pH 7.425 (7.360-7.450)
[2020-01-24 13:57] LABS: POC BE -3 mmol/L (-2.0 to +3.0); POC CA IONIZED 3.9 mg/dL (4.5-5.3); POC GLUCOSE 120 mg/dL (70-99); POC HCO3 22.5 mmol/L (22.0-26.0); POC HEMOGLOBIN 9.2 g/dL (14.0-18.0); POC POTASSIUM 4.4 mmol/L (3.5-5.1); POC SODIUM 133 mmol/L (136-145); POC pCO2 38.4 mmHg (35.0-45.0); POC pH 7.376 (7.360-7.450)
[2020-01-24 13:57] LABS: POC BE -6 mmol/L (-2.0 to +3.0); POC CA IONIZED 4.4 mg/dL (4.5-5.3); POC GLUCOSE 147 mg/dL (70-99); POC HCO3 18.9 mmol/L (22.0-26.0); POC HEMOGLOBIN 10.9 g/dL (14.0-18.0); POC SODIUM 133 mmol/L (136-145); POC pH 7.379 (7.360-7.450)
[2020-01-24 13:57] LABS: POC BE -1 mmol/L (-2.0 to +3.0); POC CA IONIZED 4.7 mg/dL (4.5-5.3); POC GLUCOSE 139 mg/dL (70-99); POC HCO3 23.4 mmol/L (22.0-26.0); POC HEMOGLOBIN 8.8 g/dL (14.0-18.0); POC POTASSIUM 4.3 mmol/L (3.5-5.1); POC SODIUM 133 mmol/L (136-145); POC pCO2 36.4 mmHg (35.0-45.0); POC pH 7.416 (7.360-7.450)
[2020-01-24 13:57] LABS: POC BE -1 mmol/L (-2.0 to +3.0); POC GLUCOSE 136 mg/dL (70-99); POC HCO3 24.8 mmol/L (22.0-26.0); POC HEMOGLOBIN 9.2 g/dL (14.0-18.0); POC POTASSIUM 4.2 mmol/L (3.5-5.1); POC SODIUM 133 mmol/L (136-145); POC pCO2 44.4 mmHg (35.0-45.0); POC pH 7.356 (7.360-7.450)
[2020-01-24 13:57] LABS: POC BE -2 mmol/L (-2.0 to +3.0); POC CA IONIZED 3.8 mg/dL (4.5-5.3); POC GLUCOSE 109 mg/dL (70-99); POC HCO3 22.4 mmol/L (22.0-26.0); POC HEMOGLOBIN 9.5 g/dL (14.0-18.0); POC POTASSIUM 4.5 mmol/L (3.5-5.1); POC SODIUM 131 mmol/L (136-145); POC pCO2 33.3 mmHg (35.0-45.0); POC pH 7.435 (7.360-7.450)
[2020-01-24 13:57] LABS: POC BE -1 mmol/L (-2.0 to +3.0); POC CA IONIZED 3.8 mg/dL (4.5-5.3); POC GLUCOSE 119 mg/dL (70-99); POC HCO3 22.8 mmol/L (22.0-26.0); POC HEMOGLOBIN 10.2 g/dL (14.0-18.0); POC POTASSIUM 4.2 mmol/L (3.5-5.1); POC SODIUM 132 mmol/L (136-145); POC pCO2 33.6 mmHg (35.0-45.0)
[2020-01-24 14:29] LABS: HEMATOCRIT 30.7 % (42.0-52.0); HEMOGLOBIN 10.5 gm/dL (14.0-18.0); MCH 33.3 pg (26.0-34.0); MCHC 34.2 g/dL (28.0-37.0); MCV 97.3 fL (80.0-100.0); RBC 3.16 mil/uL (4.50-6.00); RDW 14.8 % (10.5-14.5); WBC 13.9 thou/uL (4.0-11.0)
[2020-01-24 14:41] LABS: CALCIUM 7.7 mg/dL (8.5-10.1); CREATININE 4.3 mg/dL (0.7-1.3); POTASSIUM 4.3 mmol/L (3.5-5.1)
[2020-01-24 14:44] LABS: APTT 34.5 Seconds (24.5-32.8); INR 1.3; PROTIME 13.6 Seconds (9.3-11.4)
[2020-01-24 14:52] LABS: BE(vivo) -2.4 mmol/L (-2 to +3); PCO2 31.4 mmHg (35.0-45.0); PO2 87.4 mmHg (80.0-100.0); pH 7.443 (7.360-7.450); sO2 97.1 % (92.0-98.0)
--- NOTE | 2020-01-24 14:54 | NUR ---
Patient admits with VTACH. Patient resides in independent home with . He dializes MWF at [facility]. He uses [employer] for transport to/from dialysis. Updated [facility]. Patient to transfer to ICU post CABG. Therapy to be reordered when appropriate. [facility] following.
--- NOTE | 2020-01-24 14:59 | NUR ---
pt going to icu after cabg today. chart review. he been her in the past. lives at home with and family. 1 step to enter. no stairs that he has to do. has fww issued last hospital visit. [facility]. has transportation needs for dialysis. unable to visit with him or family rt with him postop icu. will cont following as needed for dc needs.
--- NOTE | 2020-01-24 15:31 | NUR ---
1415: PT ARRIVED FROM OR WITH STAFF, ANETHSTESIA AND SURGEON. PLACED ON MONITOR AND VIGILANCE. LABS DRAWN. ISAAK TREVIZO DUE TO ANURIC STATUS. OR NURSE REPORTS NO FAMILY IN WAITING ROOM. WILL ATTEMPT TO CALL LABOUR MARKET ECONOMIST ONCE SETTLED.
--- NOTE | 2020-01-24 15:41 | NUR ---
Nutrition: Pt S/P CABG today. RD will followup to assess education needs when out of ICU/closer to D/C.
--- NOTE | 2020-01-24 19:45 | NUR ---
Dr Garza at the bedside, received new lab orders at this time, (and further orders pending those results), discussed chest tube drainage and that pt was slow to awaken from sedation. Pt is on levophed, MAP's are reading mid 50's to 60's, the rt radial artline is positional, line was flushed with some improvement noted. Pt is poorly responsive to commands, tries to open his eyes to his name being called, minimal movement to all extremities. Will continue to monitor.
[2020-01-24 20:14] LABS: HEMATOCRIT 26.1 % (42.0-52.0); HEMOGLOBIN 8.8 gm/dL (14.0-18.0); MCH 32.8 pg (26.0-34.0); MCHC 33.7 g/dL (28.0-37.0); MCV 97.4 fL (80.0-100.0); PLATELET COUNT 221 thou/uL (150-400); RBC 2.68 mil/uL (4.50-6.00); RDW 15.1 % (10.5-14.5); WBC 21.3 thou/uL (4.0-11.0)
[2020-01-24 20:30] LABS: FIBRINOGEN 189.3 mg/dL (210-360); INR 1.3; PROTIME 13.3 Seconds (9.3-11.4)
[2020-01-24 20:48] LABS: APTT 73.7 Seconds (24.5-32.8)
[2020-01-24 21:25] LABS: ABSOLUTE NEUTROPHILS 20.7 thou/uL (1.4-8.2); ANISOCYTOSIS 2+; NUCLEATED RBCS 1 /100WBC; POLYCHROMASIA OCCASIONAL
[2020-01-25] VITALS (23 sets, daily range): BP systolic 86–164; BP diastolic 43–73
[2020-01-25 05:40] LABS: ALBUMIN 3.5 g/dL (3.4-5.0); PHOSPHORUS 3.7 mg/dL (2.5-4.9)
--- NOTE | 2020-01-25 05:51 | NUR ---
Pt is more responsive this morning, he is still quite drowsy, but opens his eyes spontaneously. Machine Inspector are still weak, he moves his feet to command and he has better control of his oral secretions. He rarely overbreathes the vent, (40% peep 5) his RUL is coarse, otherwise breath sounds are clear and diminished to bases, sats 99% and above. He remains on levo, insulin and NS, he received 3 bottles total of albumin, hemodynamic values are more consistent, but he does get hypotensive with any interruption of the levo. Pt has a TATA fistula, HD on // and he is anuric. Insulin gtt infusing, last BGL was 120, pt has a history of IDDM. The bed is in the low/locked position, the siderails are up x 4, he has a heart pillow and gait belt in the room.
[2020-01-25 05:52] LABS: HEMATOCRIT 21.4 % (42.0-52.0); HEMOGLOBIN 7.1 gm/dL (14.0-18.0); MCH 33.2 pg (26.0-34.0); MCHC 33.3 g/dL (28.0-37.0); MCV 99.7 fL (80.0-100.0); RBC 2.14 mil/uL (4.50-6.00); RDW 15.1 % (10.5-14.5); WBC 19.7 thou/uL (4.0-11.0)
[2020-01-25 06:10] LABS: POTASSIUM 5.7 mmol/L (3.5-5.1)
--- NOTE | 2020-01-25 07:41 | EKG ---
[facility] [place] [address] ELECTROCARDIOGRAM REPORT Name: BETTYE MAYA Room #: 248-P ADM IN M.R.#: [id number] Admission: 01/19/20 Attend Phys: Siva Hobson MD Discharge: Date of : 42 Report #: [id number] THIS REPORT FOR: cc: Dm To MD, Gerald M. 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: PABLITO : 1940 Requested By: López Choudhary Order Number: [id number] MD: Victoriano Cain Measurements Intervals [place] Rate: 65 P: 3 IA: 225 QRS: -52 QRSD: 111 T: 112 QT: 476 QTc: 495 Interpretive Statements Sinus rhythm Prolonged IA interval Left anterior fascicular block Anterior infarct, old Abnormal T, consider ischemia, lateral leads Compared to ECG 01/19/2020 15:48:35 First degree AV block now present Left anterior fascicular block now present T-wave abnormality now present Left ventricular hypertrophy no longer present Early repolarization no longer present Q waves no longer present Electronically Signed On 01-25-2020 7:41:43 CDT by Victoriano Cain [email or web address] <ELECTRONICALLY SIGNED> By: Victoriano Cain MD, [facility] 01/25/20 0741 1725 1725 Victoirano Cain MD, [facility] /EPI
--- NOTE | 2020-01-25 07:44 | EKG ---
[facility] [place] [address] ELECTROCARDIOGRAM REPORT Name: BETTYE MAYA Room #: 248-P ADM IN M.R.#: [id number] Admission: 01/19/20 Attend Phys: Siva Hobson MD Discharge: Date of : 42 Report #: [id number] THIS REPORT FOR: cc: Dm To MD, Gerald M. MD Santiago, Patrick MD [facility] ~ THIS REPORT FOR: //name// [facility] Test Date: 2020-01-25 Test Time: 07:28:15 Pat Name: BETTYE MAYA Department: Room: 248 P Gender: M Rose Grading Supervisor: DONAVON : 1940 Requested By: López Choudhary Order Number: [id number] MD: Victoriano Cain Measurements Intervals [place] Rate: 74 P: [place]: QRS: -52 QRSD: 106 T: 104 QT: 411 QTc: 456 Interpretive Statements Accelerated junctional rhythm Abnrm T, consider ischemia, anterolateral lds Q's III, AVF Compared to ECG 01/24/2020 17:25:53 Accelerated junctional rhythm now present Sinus rhythm no longer present First degree AV block no longer present T-wave abnormality no longer present Possible ischemia still present Myocardial infarct finding still present Electronically Signed On 01-25-2020 7:44:21 CDT by Victoriano Cain [email or web address] <ELECTRONICALLY SIGNED> By: Victoriano Cain MD, [facility] 01/25/20743 7 7 Victoriano Cain MD, [facility] /EPI
--- NOTE | 2020-01-25 08:22 | NUR ---
ASSESSMENTS AND INTERVENTIONS DOCCUMENTED. DR. SOLO ROUNDING ON THE PATIENT AROUND 0740. 7.1 HGB DISCUSSED, NO NEW ORDERS. DR. YIN RENAL MD AT BEDSIDE AROUND 0815. POC DISCUSSED AND PATIENT CURRENT STATUS. PATIENT BEGAN DIALYSIS AT 0745. PATIENT TOLERATING IT OK BUT PATIENT REUQIRING AN INCREASED AMMOUNG OF LEVOPHED.
--- NOTE | 2020-01-25 08:47 | NUR ---
ORDERS FOR POST-OP CABG EVAL AND TREAT HOWEVER Pt HAD CODE BLUE CALLED THIS AM. WILL PLACE ON HOLD AND AWAIT NEW ORDERS BEFORE INITIATING
--- NOTE | 2020-01-25 09:41 | NUR ---
0845- This piano bench assembler responded to the Code Blue situation for the patient.
--- NOTE | 2020-01-25 10:52 | NUR ---
O.T. EVALUATION ON HOLD DUE TO CODE BLUE THIS A.M. NEED NEW ORDERS.
--- NOTE | 2020-01-25 10:57 | EKG ---
[facility] [place] [address] ELECTROCARDIOGRAM REPORT Name: BETTYE MAYA Room #: 248-P ADM IN M.R.#: [id number] Admission: 01/19/20 Attend Phys: Siva Hobson MD Discharge: Date of : 42 Report #: [id number] THIS REPORT FOR: cc: Dm To MD, Gerald M. MD Santiago, Patrick MD [facility] ~ THIS REPORT FOR: //name// [facility] Test Date: 2020-01-25 Test Time: 08:54:28 Pat Name: BETTYE MAYA Department: Room: 248 P Gender: M Pricing Consultant: DONAVON : 1940 Requested By: Jacqueline Iqbal Order Number: [id number] MD: Victoriano Cain Measurements Intervals [place] Rate: 82 P: SD: QRS: -44 QRSD: 100 T: 105 QT: 383 QTc: 448 Interpretive Statements NSR Abnrm T, consider ischemia, anterolateral lds Compared to ECG 01/25/2020 07:28:15 Possible ischemia still present Electronically Signed On 01-25-2020 10:56:49 CDT by Victoriano Cain [email or web address] <ELECTRONICALLY SIGNED> By: Victoriano Cain MD, [facility] 01/25/20 1056 [id number] [id number] Victoriano Cain MD, [facility] /EPI
--- NOTE | 2020-01-25 11:33 | O ---
[facility] [place] [address] OPERATIVE REPORT Name: BETTYE MAYA Room #: 248-P ADM IN M.R.#: [id number] Admission: 01/19/20 Attend Phys: Siva Hobson MD Discharge: Date of : 42 Report #: [id number] THIS REPORT FOR: cc: Dm To MD, Gerald M. MD Forman, John M. MD ~ CC: Siva Barber DATE OF SERVICE: 01/25/2020 PREOPERATIVE DIAGNOSIS: Coronary artery disease. POSTOPERATIVE DIAGNOSIS: Coronary artery disease. OPERATION: Coronary artery bypass x 6 including left internal mammary artery to left anterior descending artery, saphenous vein to diagonal 1, marginal 1, and marginal 2 and saphenous vein to acute marginal and posterolateral branches in the right coronary artery and endoscopic harvest, left greater saphenous vein. SURGEON: Bradley Garza MD OIL WELL SHOOTER: VINI Perez. ANESTHESIA: General. INDICATIONS: The patient is a 79-year-old with coronary artery disease. The patient is on chronic dialysis for end-stage renal disease and during a dialysis session last week, the patient had unstable chest pain. Catheterization demonstrated severe 3-vessel disease. The patient has mild to moderate aortic stenosis with a peak gradient in the 20s, but LV function is good, otherwise. FINDINGS AND TECHNIQUE: After general anesthesia was established, saphenous vein was harvested using an endoscopic approach and prepared for use as a conduit. Exposure was obtained through median sternotomy. Left internal mammary artery was harvested from chest wall. Pericardial well was made. Cannulation sutures were placed. Heparin was given. The aorta was cannulated. Right atrium was cannulated. Cardioplegia needle was positioned in the aortic root. Retrograde cardioplegic catheter was placed in the coronary sinus. Cardiopulmonary bypass was established. Aorta was cross clamped. Antegrade and retrograde cardioplegia were given. Ice was poured into the pericardial well. The heart was stopped. [facility] [address] [place] [address] OPERATIVE REPORT Name: BETTYE MAYA Room #: 248-P [facility] IN ..#: [id number] Admission: 01/19/20 Attend Phys: Siva Hobson MD Discharge: Date of : 42 Report #: [id number] During electromechanical arrest, the distal anastomoses were performed and end-to-side anastomosis was made between vein and the posterolateral branch of the right coronary. This was a relatively small vessel at 1.3 mm. Cold cardioplegia was given. The same segment of vein was sewn to a relatively large posterolateral branch. This was a 1.4 mm vessel. Cold cardioplegia was given. Separate segment of vein was sewn in end-to-side fashion to the large second marginal artery. This was an intramyocardial vessel and was diffusely diseased. It was a 1.6 mm vessel. Cold cardioplegia was given. The same segment of vein was sewn in [id number] fashion to first diagonal. This was also a 1.6 mm vessel. Cold cardioplegia was given. Same segment of vein was sewn in end-to-side fashion to the first diagonal artery. This was a 1.6 mm vessel. Cold cardioplegia was given. Left internal mammary artery was sewn in end-to-side fashion to left anterior descending artery. Patency of this vessel was checked with the temperature technique and the Doppler. Cold cardioplegia was given. Two proximal anastomoses were performed. When these were complete, warm retrograde cardioplegia was given followed by warm continuous blood to the coronary sinus. When this infusion was complete, the crossclamp was removed, de-airing maneuvers were performed. The anastomoses were inspected and found to be satisfactory. As the patient warmed, nice cardiac activity resumed, chest tubes and pacing wires were placed, a marker was placed around the proximal anastomoses. When the patient was warm, he was weaned from cardiopulmonary bypass. Venous cannula was removed. Protamine was given, the aortic cannula was removed. Flows were measured in the bypass grafts. When hemostasis was satisfactory, chest was irrigated with antibiotic solution and then closed in the usual fashion. The patient was taken to the Intensive Care Unit in good condition having tolerated the procedure well. All counts reported as correct. <ELECTRONICALLY SIGNED> By: Bradley Garza MD 01/25/20 1133 [id number] 0757 Bradley Garza MD /nt
[2020-01-25 11:49] LABS: CALCIUM 8.2 mg/dL (8.5-10.1); MAGNESIUM 2.4 mg/dL (1.8-2.4)
--- NOTE | 2020-01-25 15:11 | HC ---
[facility] [place] [address] CONSULTATION Name: BETTYE MAYA Room #: 248-P ADM IN M.R.#: [id number] Admission: 01/19/20 Attend Phys: Siva Hobson MD Discharge: Date of : 42 Report #: [id number] THIS REPORT FOR: cc: Dm To MD, Gerald M. MD Forman, John M. MD ~ CC: Siva Barber DATE OF SERVICE: 01/20/2020 REFERRING PHYSICIAN: We were asked to see the patient by Dr. Barber. INDICATIONS: The patient is a 79-year-old with coronary artery disease. HISTORY OF PRESENT ILLNESS: The patient was admitted on 01/19/2020 with chest pain. The patient is a 79-year-old who is on dialysis for end-stage renal disease. During dialysis earlier on the day of admission, the patient had wide-complex tachycardia. He was given amiodarone and this narrowed. I do not believe the patient had electrical cardioversion. In any event, with the history of chest pain, the patient had cardiac catheterization today. This showed important 3-vessel coronary artery disease. In particular, there was a tight ostial LAD lesion, eccentric in nature that extended into the distal left main as well as LAD and right coronary stenoses. Left ventriculogram was not done. In the past, the patient had a cardiac echo that showed no diminution of myocardial function. PAST MEDICAL HISTORY: Also significant for hypertension and diabetes mellitus. 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 He is on dialysis, Friday, Friday, Friday through a left arm AV fistula. MEDICATIONS: At home, includes Renvela, NovoLog, isosorbide, Sensipar, aspirin, carvedilol. ALLERGIES: None known. SOCIAL HISTORY: Former tobacco user. FAMILY HISTORY: Strongly positive for coronary artery disease, hypertension, diabetes mellitus according to the patient. The patient himself is from [place]. REVIEW OF SYSTEMS: GENERAL: No fever or chills. EYES: No vision problems. [facility] [address] [place] [address] CONSULTATION Name: BETTYE MAYA Room #: 248-P [facility] IN .R.#: [id number] Admission: 01/19/20 Attend Phys: Siva Hobson MD Discharge: Date of : 42 Report #: [id number] HEENT: No headache, hearing problems, ear drainage, nasal infection. No sinus infection. RESPIRATORY: No cough, shortness of breath. CARDIAC: As mentioned, angina during dialysis. Denies chest pain with exertion. GASTROINTESTINAL: Denies nausea, vomiting, diarrhea. GENITOURINARY: Denies burning, frequency, urgency. MUSCULOSKELETAL: No bone or joint pain. SKIN: No rash or infection. NEUROLOGIC: No motor or sensory dysfunction. ENDOCRINE: Reports diabetes. No tremor, no goiter. PHYSICAL EXAMINATION: GENERAL: The patient is in bed, seemingly comfortable. VITAL SIGNS: Temperature 36.9, heart rate 86, respiratory rate 16, blood pressure 138/66, pulse ox 99 on 2 liters. HEENT: No scleral icterus, no arcus. NECK: No mass, no bruit. CHEST: Clear to auscultation. HEART: Rhythm regular, no murmur. EXTREMITIES: No clubbing, cyanosis, or edema. We do note the upper left arm AV fistula. VASCULAR: 2+ popliteal pulses. No obvious saphenous vein problems. NEUROLOGIC: No motor or sensory dysfunction. PSYCHIATRIC: Shows insight into problem and understands the situation and appears eager to go ahead. ASSESSMENT AND PLAN: I reviewed the risks and details of coronary artery bypass surgery. Risks include but are not limited to bleeding, infection, anesthesia risks, heart and lung problems, stroke and . Options and alternatives were reviewed. The patient understands all of this and wishes to proceed. We have organized surgery for Friday and I have ordered our preoperative tests. We will try to arrange dialysis for Friday to be prepared for surgery. It does not appear that the patient is on any blood thinning medicines that need to be discontinued. It is a privilege to participate in this challenging patient's care. Thank you for the consult. <ELECTRONICALLY SIGNED> By: Bradley Garza MD 01/25/20 1511 [id number] 1704 Bradley Garza MD /nt
[2020-01-25 19:43] LABS: BE(vivo) -2.8 mmol/L (-2 to +3); HCO3 21.1 mmol/L (22.0-26.0); PO2 143.5 mmHg (80.0-100.0); pH 7.424 (7.360-7.450); sO2 98.9 % (92.0-98.0)
--- NOTE | 2020-01-25 19:47 | NUR ---
1946- Patient extubated Per RT, patient placed on cpap at 185. Patient is awake and follows commands. He is calm and was calm throughout cpap trial. RR in the teens. Oxygenation saturation is greater than 95%. Blood pressure stabilized and was able to have the levophed titrated off. He has been in a sinus rhythm with heart rate 60's to 70's. ABG drawn by RTJennifer and then shown to Dr. Garza who was present during some of the cpap trial. Per Dr. Garza, ok to extubate patient based on clinical findings and ABG results. Patient was extubated now at 1946 to face mask at 40%. Oxygenation at this time is 100%. Nurse to continue to monitor patient status.
--- NOTE | 2020-01-26 05:06 | NUR ---
0506- Progress note Patient progressing towards plan of care as evidenced by maintaining normal sinus rhythm, hemodynamic stability, patient neuro intact, off levophed. Will get him up the morning to a chair. Patient is eager to get up. Plan of care is to continue to monitor chest tube outputs, hemodynamic monitoring, pain control, and increased activity.
[2020-01-26 05:55] LABS: HEMATOCRIT 21.4 % (42.0-52.0); HEMOGLOBIN 7.2 gm/dL (14.0-18.0); MCH 32.2 pg (26.0-34.0); MCHC 33.6 g/dL (28.0-37.0); MCV 95.7 fL (80.0-100.0); RBC 2.23 mil/uL (4.50-6.00); RDW 16.8 % (10.5-14.5); WBC 12.7 thou/uL (4.0-11.0)
[2020-01-26 06:03] LABS: CALCIUM 8.2 mg/dL (8.5-10.1); POTASSIUM 4.4 mmol/L (3.5-5.1)
[2020-01-26 06:06] LABS: CREATININE 4.4 mg/dL (0.7-1.3)
--- NOTE | 2020-01-26 06:12 | NUR ---
Nurse with the assistance of charge nurse, attempted to stand/pivot patient to the recliner. Patient was able to maneuver self, with some assistance, to the side of the bed and dangle. Then he attempted to stand. He was unable to stand, so other nurses helped get him upright, back in bed. He expressed his legs did not want to work. He expressed he felt dizzy at that time. O2 saturation was 94%, he was sinus rhythm. Physical therapy may need to help get him out of bed. Education provided to patient about activity and need for physical therapy. He expressed he understood.
--- NOTE | 2020-01-26 08:21 | NUR ---
Assummed care at 0700 from the night nurse, Kaila EDWARDS. Patient is awake but drifts off to sleep. Denies pain. Amiodarone and Insulin drips continue. Dr Garza in at 0730, orders noted.
[2020-01-26 08:56] VITALS: BP 109/49
--- NOTE | 2020-01-26 12:00 | NUR ---
PATIENT RESTING QUIETLY, REFUSES SOLID FOODS, STATES THAT HE IS WEAK. AMIODARONE DRIP, INSULIN DRIP AND PO FLUIDS ARE DC'D. WILL CONTINUE TO MONITOR.
[2020-01-26 12:22] VITALS: BP 98/45
[2020-01-26 16:01] VITALS: BP 118/46
--- NOTE | 2020-01-26 17:00 | NUR ---
JIMI PULLED EARLY THIS AFTERNOON CARDIAC INDEX IS STABLE AT 2.2 TO 2.4. ASSISTED UP TO THE CHAIR WITH OT, PT AND THIS NURSE. ASSISTED BACK TO BED WITH THE HOYLER LIFT PATIENT IS UNABLE TO BEAR HIS OWN WEIGHT. RESTING QUIETLY. MAICO MARTINI ADDRESSED THE BRIGIDO STERNAL DRESSING. CONTINUES TO BEEP ORANGE. WILL CONTINUE TO MONITOR.
--- NOTE | 2020-01-26 19:00 | NUR ---
ATE SMALL AMT OF DINNER. VSS. CALM AND COOPERATIVE. PROGRESSING TOWARDS OUTCOME GOALS.
[2020-01-27 00:01] VITALS: BP 103/46
[2020-01-27 05:59] LABS: HEMATOCRIT 21.8 % (42.0-52.0); HEMOGLOBIN 7.2 gm/dL (14.0-18.0)
[2020-01-27 06:29] LABS: CALCIUM 8.7 mg/dL (8.5-10.1); POTASSIUM 4.9 mmol/L (3.5-5.1)
--- NOTE | 2020-01-27 07:04 | NUR ---
ASSUMMED CARE ON PATIENT. DIALYSIS NURSE HERE TO START DIALYSIS RUN.
[2020-01-27 07:07] VITALS: BP 118/50
[2020-01-27 07:59] VITALS: BP 119/51
--- NOTE | 2020-01-27 10:45 | NUR ---
Hemo dialysis completed. Patient is resting quietly, son in to visit earlier.
[2020-01-27 11:05] VITALS: BP 119/48
--- NOTE | 2020-01-27 11:14 | NUR ---
Nutrition: LOS. pt S/P CABG x 6 01/23. Hx ESRD on hemodialysis today. Chart reviewed. No weight loss per hx. Currently up with fluids. Nsg reported poor intake during rounds. Ate 25% dinner last noc but prior to surgery was eating 75-100% of meals. Will trial nepro once a day and follow for appetite to resume post surgery. Followup next week.
--- NOTE | 2020-01-27 14:56 | NUR ---
Patient c/o nausea earlier, states that dialysis nauseates him afterwards. Taking sips of supplement without emesis.
[2020-01-27 15:22] LABS: HEMATOCRIT 21.7 % (42.0-52.0); HEMOGLOBIN 7.3 gm/dL (14.0-18.0)
--- NOTE | 2020-01-27 18:30 | NUR ---
PATIENT SLOWLY PROGRESSING TOWARDS OUTCOME GOALS EVIDENT BY, PLEURAL CHEST TUBE AND PACER WIRES PULLED BY JONATHAN MARTINI AND FOLLOW UP PCXR DONE. INTRODUCER PULLED. ABLE TO FEED SELF THIS EVENING, APPITTE IMPROVED. SPIRITS IMPROVED.
--- NOTE | 2020-01-27 23:23 | NUR ---
GAVE PATIENT REPORT TO KILO EDWARDS. PATIENT CARE RELINQUISHED.
[2020-01-28] VITALS (17 sets, daily range): BP systolic 53–116; BP diastolic 33–48
--- NOTE | 2020-01-28 05:27 | NUR ---
ASSESSMENTS CHARTED, MEDS CHARTED GIVEN. TOOK OVER CARE FROM LEXIS AT 2330. PATIENT AWAKE, RESTING IN BED DURING SHIFT. SR/SB ON TELEMETRY 1ST DEGREE, BBB ON TELEMETRY, WEAK COUGH, DENIED NAUSEA. PATIENT TURNED CHARTED. DIALYSIS PATIENT MWF, [facility] AND [facility]. STERNAL INCISION HAS AIR LEAK, DOCTOR AWARE, FALL PRECAUTIONS IN PLACE DURING SHIFT. DENIED PAIN.
--- NOTE | 2020-01-28 05:48 | NUR ---
RECEIVED REPORT FROM KILO EDWARDS. ASSUMED PATIENT CARE AT THIS TIME. LABS DRAWN FROM ART LINE. PATIENT DENIES ANY NEEDS AT THIS TIME.
[2020-01-28 06:16] LABS: MCH 32.6 pg (26.0-34.0); MCHC 33.6 g/dL (28.0-37.0)
[2020-01-28 06:18] LABS: HEMATOCRIT 20.8 % (42.0-52.0); RBC 2.14 mil/uL (4.50-6.00); RDW 16.6 % (10.5-14.5); WBC 11.6 thou/uL (4.0-11.0)
[2020-01-28 06:40] LABS: CALCIUM 8.2 mg/dL (8.5-10.1); POTASSIUM 4.5 mmol/L (3.5-5.1)
[2020-01-28 06:49] LABS: CREATININE 3.8 mg/dL (0.7-1.3)
--- NOTE | 2020-01-28 07:41 | EKG ---
[facility] [place] [address] ELECTROCARDIOGRAM REPORT Name: BETTYE MAYA Room #: 248-P ADM IN M.R.#: [id number] Admission: 01/19/20 Attend Phys: Siva Hobson MD Discharge: Date of : 41 Report #: [id number] THIS REPORT FOR: cc: Dm To MD, Gerald M. MD Lundgren,Thomas Helton MD [facility] ~ THIS REPORT FOR: //name// [facility] Test Date: 2020-01-28 Test Time: 07:11:36 Pat Name: BETTYE MAYA Department: Room: 248 P Gender: M Budget Controller: DONAVON : 1940 Requested By: López Choudhary Order Number: [id number] MD: Thomas Burton Measurements Intervals [place] Rate: 58 P: 25 CO: 219 QRS: -35 QRSD: 118 T: 92 QT: 508 QTc: 500 Interpretive Statements Sinus bradycardia Borderline prolonged CO interval Leftward axis Nonspecific intraventricular conduction delay Poor R wave progression Baseline wander in lead(s) V4 Compared to ECG 01/25/2020 08:54:28 T wave abnormalities less pronounced Electronically Signed On 01-28-2020 7:41:32 CDT by Thomas Burton [email or web address] <ELECTRONICALLY SIGNED> By: Thomas Burton MD, FACC 01/28/20740 0 0 Thomas Burton MD, [facility] /EPI
--- NOTE | 2020-01-28 11:04 | NUR ---
chart review, he requiring oxygen, dialysis today. no anticipated dc over the weekend. will cont following as needed for dc needs.
--- NOTE | 2020-01-28 13:50 | HC ---
[facility] [place] [address] CONSULTATION Name: BETTYE MAYA Room #: 248-P ADM IN M.R.#: [id number] Admission: 01/19/20 Attend Phys: Siva Hobson MD Discharge: Date of : 42 Report #: [id number] THIS REPORT FOR: cc: Dm To MD, Gerald M. MD Couchonnal, Luis F. MD ~ CC: Siva CULVER CONSULTATION REASON FOR CONSULTATION: SVT. HISTORY OF PRESENT ILLNESS: The patient is a 79-year-old with history of end-stage renal disease, on dialysis, who I saw back in 2017 for some short runs of SVT, some of which demonstrated SVT with aberration. Last night, he presented with rapid palpitations and had an EKG, which I visualized showing SVT with some left bundle branch block aberration. This terminated with IV amiodarone. He had a slight elevation in his troponin with no ischemic changes on his EKG. He is chest pain free. Denies any shortness of breath. Denies PND or orthopnea. Denies presyncope or syncope. PAST MEDICAL HISTORY: Has been reviewed. SOCIAL HISTORY: Does not smoke. FAMILY HISTORY: Noncontributory. ALLERGIES: None. MEDICATIONS: Reviewed. REVIEW OF SYSTEMS: A 12-point review of systems was performed. PHYSICAL EXAMINATION: GENERAL: No acute distress. HEENT: Oropharynx clear. NECK: Supple, no thyromegaly. HEART: Regular rate and rhythm with no murmurs, rubs or gallops. LUNGS: Clear to auscultation bilaterally. ABDOMEN: Soft, nontender, nondistended. EXTREMITIES: No clubbing, cyanosis, edema. Cranial nerves 2-12 are intact. LABORATORY DATA: Sodium 132, potassium 6.6, creatinine 5.8. Troponin 0.68. CBC normal. [facility] [address] [place] [address] CONSULTATION Name: BETTYE MAYA Room #: 248-P [facility] IN [facility].#: [id number] Admission: 01/19/20 Attend Phys: Siva Hobson MD Discharge: Date of : 41 Report #: [id number] ASSESSMENT: Supraventricular tachycardia. PLAN: The patient will proceed with diagnostic cardiac catheterization after he undergoes dialysis today. If no interventions are required, we will proceed with EP study and possible ablation tomorrow. We discussed the details of the procedure including the risks, which include but not limited to bleeding, vascular damage, stroke, [place] as well as damage to rampart conduction system requiring permanent pacemaker. He understands these risks and is willing to proceed. We will hold amiodarone, which was started yesterday and his carvedilol. If he has breakthrough SVT overnight, then we should treat this with IV diltiazem drip, which we can turn off prior to the ablation. Thank you for allowing me to participate in his care. <ELECTRONICALLY SIGNED> By: Yvon Sanz MD 01/28/20 1350 0958 Yvon Sanz MD /nt
[2020-01-28 18:34] LABS: % SATURATION 68 % (20-39); IRON 90 ug/dL (65-175); TIBC 132 ug/dL (250-450)
[2020-01-29 05:46] LABS: ALBUMIN 2.6 g/dL (3.4-5.0); CALCIUM 8.2 mg/dL (8.5-10.1); PHOSPHORUS 5.4 mg/dL (2.5-4.9); POTASSIUM 4.3 mmol/L (3.5-5.1)
[2020-01-29 06:07] LABS: CREATININE 5.1 mg/dL (0.7-1.3)
[2020-01-29 06:12] LABS: HEMATOCRIT 21.2 % (42.0-52.0); HEMOGLOBIN 7.2 gm/dL (14.0-18.0)
--- NOTE | 2020-01-29 11:53 | O ---
[facility] [place] [address] OPERATIVE REPORT Name: BETTYE MAYA Room #: 248-P ADM IN M.R.#: [id number] Admission: 01/19/20 Attend Phys: Siva Hobson MD Discharge: Date of : 42 Report #: [id number] THIS REPORT FOR: cc: Dm To MD, Gerald M. MD Forman, John M. MD ~ CC: Siva Barber DATE OF SERVICE: 01/24/2020 ADDENDUM PREOPERATIVE DIAGNOSIS: Coronary artery disease. POSTOPERATIVE DIAGNOSIS: Coronary artery disease. OPERATION: Coronary artery bypass x 6 including left internal mammary artery to left anterior descending artery; saphenous vein to diagonal 1, marginal 1, and marginal 2 and saphenous vein to acute marginal branch and posterolateral branches of right coronary artery and endoscopic harvest, left greater saphenous vein. SURGEON: Bradley Garza MD EXECUTIVE OFFICER: VINI Perez ANESTHESIA: General. INDICATIONS: The patient is a 79-year-old with important 3-vessel coronary artery disease. This note is dictated to amend the operative report already dictated. The operative report was miss dictated as having had surgery on 01/25/2020, when the operative was 01/24/2020. Otherwise, the note is accurate as dictated. <ELECTRONICALLY SIGNED> By: Bradley Garza MD 01/29/20 1153 1513 1523 MD bailey Quintanilla
[2020-01-29 12:20] VITALS: BP 133/65; BP 134/56
[2020-01-29 13:02] VITALS: BP 114/50
[2020-01-29 14:00] VITALS: BP 111/50
[2020-01-29 15:02] VITALS: BP 100/47
--- NOTE | 2020-01-29 15:46 | NUR ---
Patient having dialysis most of the morning. Patient remains very tired. Vital signs and heart rate and rhythm stable during dialysis. Transfused 1 unit PC with dialysis. Took off 1L. Patient moved into chair position in the bed for lunch. Ate well. Physical therapy came by this afternoon and asisted patient to chair. Called Dr. Garza and updated with current VS heart rhythm and oxygenation status. Orders to transfer to CCU. Changed all of the chest tube site dressings, rotated PIV location and removed right arterial line without difficulty. Patient's here this afternoon. Visited with them both about the plan of care. Report given to Luz Elena on 2N. Patient to be transfered to room 212.
[2020-01-29 16:30] VITALS: BP 104/44
--- NOTE | 2020-01-29 19:29 | NUR ---
PT TRANSFERED FROM ICU IN STABLE CONDITION. VSS. SR ON TELE. NO CARDIAC OR RESPIRATORY DISTRESS NOTED.
[2020-01-29 20:00] VITALS: BP 108/43
[2020-01-30 00:32] VITALS: BP 111/40
--- NOTE | 2020-01-30 04:26 | NUR ---
PT ALERT AND ORIENTED. CARE ASSUMED AT 1900. PT IN RECLAINER. REPORTS ABDOMINAL PAIN. STOMACH DISTENDED NONE TENDER. REPORTS TO BE PASSING GAS. BOWEL SOUNDS ACTIVE. SR ON THE MONITOR. DENIES CHEST PAIN. MILD NAUSEA, ALLEVIATE BY ZOFRAN. PT WEAK TO TRANSFER. ASSIST X 2 WITH TRANSFERS. WILL CONTINUE MONITOR AND FOLLOW POC.
[2020-01-30 05:00] VITALS: BP 102/46
[2020-01-30 08:15] VITALS: BP 92/39
[2020-01-30 12:20] VITALS: BP 112/46
[2020-01-30 15:55] VITALS: BP 101/44
--- NOTE | 2020-01-30 16:01 | NUR ---
ASSESSMENT CHARTED. PT ALERT AND ORIENTED. VSS. UP IN THE CHAIR THIS AM, HAD A SHOWER. BRIGIDO DRESSING CHANGED. SR ON TELE. DENIED HAVING PAIN OR DISCOMFORT. NO RESPIRATORY OR CARDIAC DISTRESS NOTED. PROGRESSING WELL TOWARDS DISCHARGE GOAL.
[2020-01-30 20:26] VITALS: BP 114/56
[2020-01-31] VITALS (9 sets, daily range): BP systolic 99–130; BP diastolic 39–62
--- NOTE | 2020-01-31 06:45 | NUR ---
pt remains A & O, prn pain meds given for incisional pain, c/o abdomen firmness no bm since surg on 01/23, dialysis here setting up now, vss, will con't to monitor per ppoc.
[2020-01-31 15:30] LABS: HEMOGLOBIN 8.9 gm/dL (14.0-18.0); WBC 11.2 thou/uL (4.0-11.0)
[2020-01-31 15:32] LABS: MCHC 32.9 g/dL (28.0-37.0); MCV 97.1 fL (80.0-100.0); RBC 2.78 mil/uL (4.50-6.00)
[2020-01-31 15:43] LABS: ALBUMIN 2.6 g/dL (3.4-5.0); CALCIUM 8.2 mg/dL (8.5-10.1); PHOSPHORUS 2.6 mg/dL (2.5-4.9); POTASSIUM 4.2 mmol/L (3.5-5.1)
[2020-01-31 15:44] LABS: CREATININE 2.7 mg/dL (0.7-1.3)
--- NOTE | 2020-01-31 15:56 | NUR ---
Patient evaled by [facility] they are submitting for auth.
--- NOTE | 2020-01-31 19:18 | NUR ---
ASSESSMENT CHARTED, UP IN THE CHAIR AFTER DIALYSIS, AND MEDICATED FOR ABD PAIN. VSS AND AFEBRILE. PATIENT STATED ROMMEL HE FEELS WEAK AND WAS HELPED BACK TO BED, BRIGIDO DRESSING INPLACE AND INTACT, AND WILL CONTINUE WITH POC.
[2020-02-01] VITALS (7 sets, daily range): BP systolic 100–143; BP diastolic 44–56
--- NOTE | 2020-02-01 03:04 | NUR ---
PATIENT WAS FOUND ON THE FLOOR BETWEEN BED AND COMMODE, FALL WAS UNWITNESSED. PATIENT WAS ALERT AND ORIENTED, FORGOT ABILITY LEVEL. NO INJURY WAS SUSTAINED BY PATIENT. DR JIMENEZ WAS INFORMED, PATIENT'S WAS INFORMED. SAFETY EDUCATION WAS REVIEWED WITH PATIENT.
--- NOTE | 2020-02-01 04:52 | NUR ---
ASSESSMENTS CHARTED, MEDS CHARTED GIVEN. PATIENT HAD BOWEL MOVEMENT POST FALL. CONTINUES TO DENIES PAIN. FALL PRECAUTIONS WERE IN PLACE AND CONTINUE TO BE IN PLACE DURING SHIFT.
--- NOTE | 2020-02-01 09:12 | NUR ---
PATIENT IS A CANDIDATE FOR ACUTE REHAB. PATIENT CAN COME TO [facility] IF BED IS AVAILABLE AND AUTHORIZATION HAS BEEN OBTAINED. AUTHORIZATION REQUESTED FROM PATIENT'S INSURANCE ON 01/30. THIS AM (01/31) NOTIFIED THAT NOT ALL OF CLINICAL INFORMATION FAX WAS RECEIVED BY INSURANCE. FAX RESENT. WILL AWAIT DECISION.
--- NOTE | 2020-02-01 18:11 | NUR ---
[facility] evaled patient and submitted for auth. Sp with spouse and patient regarding chosing an option if not auth for [facility]. Left [employer] list in room to review,,
--- NOTE | 2020-02-02 02:28 | NUR ---
ASSUMED CARE OF PATIENT AT 1900. FALL PRECAUTIONS IN PLACE. PATIENT CALLS APPROPRIATELY. PATIENT ENCOURAGED TO DO INCENTIVE SPIROMETER. PATIENT DENIES PAIN AT ASSESSMENT. AROUND MIDNIGHT PATIENT REQUESTED TO SIT UP IN CHAIR FOR COMFORT. PATIENT AMBULATED WITH SBA TO RECLINER. PATIENT APPEARS TO BE PROGRESSING TOWARDS CARE PLAN GOALS.
[2020-02-02 03:59] VITALS: BP 112/44
[2020-02-02 07:21] VITALS: BP 119/59
[2020-02-02 11:40] VITALS: BP 133/62
--- NOTE | 2020-02-02 15:06 | NUR ---
spoke with and reports cont to obtain auth for [facility]. Attempted reviewing [employer] skilled list and reports of patient "he does not like plan B." Discussed with no secondary plan if [facility] not auth then would plan home or ltc. requested casemgt sp with patient with need to make decision. Sp with patient regarding list and he reports "thats a alf." Discussed yes nursing ltc and rehab. Patient reports he needs to sleep and discuss later. Updated Dr Hobson who sp with .
[2020-02-02 16:33] VITALS: BP 115/57
--- NOTE | 2020-02-02 18:38 | NUR ---
ASSESSMENT DOCUMENTED, UP IN THE CHAIR X2, AND SUNITA ANY DISOCMFORT. DIALIZED TODAY, VSS AND PATIENT REPORTS PROGRESS BETTER THAN YESTERDAY. PROGRESSING SLOWLY TOWARDS POC GOALS, AND WILL CONTINUE TO MONITOR PATIENT.
[2020-02-02 19:30] VITALS: BP 111/49
--- NOTE | 2020-02-03 03:43 | NUR ---
Assumed pt care at 1900. Pt is alert and oriented. No sign of distress noted in pt. Pt is transferred for chair to bed at the beginnign of the shift. Pt is steady. Fall precaution in place. Assessment completed and documented. Scheduled meds administered to pt. Tolerated PO intake. No acute events overnight. Continue to monitor. Pt pendign discahrge. No further needs at this time.
[2020-02-03 04:00] VITALS: BP 115/59
[2020-02-03 07:28] VITALS: BP 125/48
[2020-02-03 11:43] VITALS: BP 113/55
--- NOTE | 2020-02-03 11:51 | NUR ---
CALL RECEIVED FROM PATIENT'S INSURANCE WITH DENIAL FOR ACUTE REHAB STAY. [facility] STATES [facility] IS UNABLE TO PARTICIPATE IN 3 HOURS OF THERAPY A DAY. PEER TO PEER CAN BE PERFORMED BY SETTING UP CALL AT OPTION #4. CALL MUST BE SET UP PRIOR TO NOON THIS DATE. PATIENT HAS BEEN APPROVED FOR SKILLED STAY. LAST INSERTER AT [facility] IS [facility] ZABALA AT . AUTH MUST BE REQUESTED BY SKILLED FACILITY WITHIN 48 HOURS. HOSPITAL BIOLOGIST SHOULD CALL [facility] AND INFORM WHICH SKILLED FACILITY WILL BE REQUESTING AUTH. [facility] WILL HELP EXPEDITE AUTHROIZATION. JOINT RUNNER NOTIFIED THAT DR. FERNANDES WILL BE PREFORMRING PEER TO PEER AND THAT HE HAS ALREADY CALLED TO SET UP PEER TO PEER.
--- NOTE | 2020-02-03 13:46 | NUR ---
[facility] ADVISED CM THAT THEIR AUTH REQUEST HAD BEEN DENIED. PEER TO PEER APPEAL COMPLETED PER DR FERNANDES AND DENIAL OVER TURNED. [facility] NOTIFIED AND THEY WILL HAVE A BED FOR THE PT WHEN MEDICALLY READY. PER THE ATTENDING, THE PT WILL NEED A FISTULAGRAM TOMORROW THEN CAN DC TO 5N. CARE TEAM UPDATED INCLUDING CTS. PT WILL NEED ONGOING DIALYSIS AND INTENSIVE THERAPIES TO REGAIN IS STRENGTH AND RETURN HOME WITH FAMILY. WILL FOLLOW.
[2020-02-03 15:51] VITALS: BP 99/45
--- NOTE | 2020-02-03 19:21 | NUR ---
ASSUMED CARE PT SHIFT CHANGE. ASSESSMENTS CHARTED.MEDS GIVEN PER MAR. PT ALERT AND ORIENTED.VSS. DENIES PAIN. O2 SATS WNL ON RA. PT TOLERATING WALKING WITH CARD REHAB AND PHYS THERAPY LESS THAN ADEQUATE. PT SEEMS TO BE RELUCTANT IN GETTING UP AND MOVING MUCH, PT EDUCATED ON IMPORTANCE OF MOVING AFTER A CABG PROCEDURE. APPETITE ADEQUATE. PT DIALYZED WITH 2L TAKEN OFF TOLERATING FAIR. PT CURRENTLY SITTING UP IN CHAIR DENYING OF NEEDS. PLAN IS FOR DC PT TO 5N REHAB AFTER POSSIBLE FISTULOGRAM TOMORROW. PT AND SPOUSE UPDATED ON POC. WILL CONT TO MONITOR/FOLLOW POC. WILL PASS ON REPORT TO NOC RN.
[2020-02-03 20:15] VITALS: BP 121/57
--- NOTE | 2020-02-04 04:32 | NUR ---
Assumed pt care 1900. Pt is alert and oriented. No sign of distress noted. Pt is sitting in chair and stable. Vital signs stable. Fall precaution in place. Assessment completed and documented.Scheduled meds administered to pt. No acute event overnight. Possible fistulogram. Transfer to . No further needs at this time.
[2020-02-04 04:45] VITALS: BP 114/57
[2020-02-04 05:26] LABS: HEMATOCRIT 27.1 % (42.0-52.0); MCH 32.6 pg (26.0-34.0); MCHC 33.3 g/dL (28.0-37.0); MCV 97.9 fL (80.0-100.0); RBC 2.77 mil/uL (4.50-6.00); RDW 20.5 % (10.5-14.5); WBC 10.2 thou/uL (4.0-11.0)
[2020-02-04 05:46] LABS: CREATININE 5.7 mg/dL (0.7-1.3); POTASSIUM 4.3 mmol/L (3.5-5.1)
[2020-02-04 06:11] LABS: URIC ACID* 5.4 mg/dL (3.5-7.2)
[2020-02-04 07:34] VITALS: BP 160/64
--- NOTE | 2020-02-04 09:51 | NUR ---
PT HAVING DIALYSIS AT BEDSIDE AT THIS TIME.
[2020-02-04] MEDS ORDERED: LANTUS SUBQ (10:26)
[2020-02-04] MEDS ORDERED: LIPITOR40 MG PO (10:26)
[2020-02-04] MEDS ORDERED: PACERONE 200 M200 M1 PO (10:26)
--- NOTE | 2020-02-04 11:50 | NUR ---
Case discussed with the care team. No fistulagram needed at this time. Pt dialyzing this am and then will dc to 5N acute rehab this afternoon. The 5N liason has visited with this am. 5N to follow for dc planning needs. Pt's goal is to return home independently.
[2020-02-04 12:45] VITALS: BP 126/58
[2020-02-04 13:09] VITALS: BP 126/58
--- NOTE | 2020-02-04 13:54 | NUR ---
PT COMPLETED DIALYSIS AROUND NOON.
--- NOTE | 2020-02-04 15:11 | NUR ---
REPORT CALL TO AB RN 5N, AUDREY EDWARDS.
--- NOTE | 2020-02-04 16:13 | NUR ---
pt transfered to rehab unit.
== END 2020-02-04 16:45 | DRG 233 ==
LOC: ER 15:29 → 2N 17:15 → ICU 17:15 → EROBS 17:15 → 2N 20:09 → ICU 01-24 11:49 → 2N 01-29 16:15
PROVIDERS: Emergency Medicine; Internal Medicine Cardiovascular Disease; Internal Medicine Nephrology; Nurse Practitioner Adult Health; Nurse Practitioner Family; Physician Assistant; Surgery Vascular Surgery; ADMIT Hospitalist; ATTEND Hospitalist
PROC: 4A023N7 Measurement of Cardiac Sampling and Pressure, Left Heart, Percutaneous Approach (ICD-10-PCS; principal; 2020-01-20)
PROC: B2111ZZ Fluoroscopy of Multiple Coronary Arteries using Low Osmolar Contrast (ICD-10-PCS; principal; 2020-01-20)
PROC: 30233R1 Transfusion of Nonautologous Platelets into Peripheral Vein, Percutaneous Approach (ICD-10-PCS; 2020-01-24)
PROC: 021309W Bypass Coronary Artery, Four or More Arteries from Aorta with Autologous Venous Tissue, Open Approach (ICD-10-PCS; 2020-01-25)
PROC: 06BQ4ZZ Excision of Left Saphenous Vein, Percutaneous Endoscopic Approach (ICD-10-PCS; 2020-01-25)
PROC: 02100Z9 Bypass Coronary Artery, One Artery from Left Internal Mammary, Open Approach (ICD-10-PCS; 2020-01-25)
PROC: 30233N1 Transfusion of Nonautologous Red Blood Cells into Peripheral Vein, Percutaneous Approach (ICD-10-PCS; 2020-01-25)
PROC: 5A1221Z Performance of Cardiac Output, Continuous (ICD-10-PCS; 2020-01-25)
DX: I21.4 Non-ST elevation (NSTEMI) myocardial infarction (principal); N18.6 End stage renal disease; J96.01 Acute respiratory failure with hypoxia; G93.41 Metabolic encephalopathy; I47.1 Supraventricular tachycardia; I50.30 Unspecified diastolic (congestive) heart failure; D62 Acute posthemorrhagic anemia; I13.2 Hypertensive heart and chronic kidney disease with heart failure and with stage 5 chronic kidney disease, or end stage renal disease; I25.10 Atherosclerotic heart disease of native coronary artery without angina pectoris; M19.90 Unspecified osteoarthritis, unspecified site; E78.5 Hyperlipidemia, unspecified; E78.00 Pure hypercholesterolemia, unspecified; E11.22 Type 2 diabetes mellitus with diabetic chronic kidney disease; I65.29 Occlusion and stenosis of unspecified carotid artery; F03.90 Unspecified dementia, unspecified severity, without behavioral disturbance, psychotic disturbance, mood disturbance, and anxiety; E87.5 Hyperkalemia; G47.00 Insomnia, unspecified; K59.00 Constipation, unspecified; I35.0 Nonrheumatic aortic (valve) stenosis; I27.20 Pulmonary hypertension, unspecified; I95.9 Hypotension, unspecified; Z79.4 Long term (current) use of insulin; Z98.42 Cataract extraction status, left eye; Z86.73 Personal history of transient ischemic attack (TIA), and cerebral infarction without residual deficits; Z87.891 Personal history of nicotine dependence; Z79.82 Long term (current) use of aspirin; Z79.899 Other long term (current) drug therapy; Z83.3 Family history of diabetes mellitus; Z82.49 Family history of ischemic heart disease and other diseases of the circulatory system; Z20.828 Contact with and (suspected) exposure to other viral communicable diseases
CPT/HCPCS: 10078; 10081; 32100; 47000; 47001; 47002; 47297; 48888; 50010; 50011; 50409; 50498; 50668; 51301; 52131; 52259; 52287; 52314; 53327; 53358; 54118; 56455; 56524; 56525; 56526; 56527; 56528; 56531; 56534; 56668; 56719; 56760; 56898; 57093; 57116; 57167; 62110; 62950; 65003; 65020; 65047; 65090; 65120; 65135; 85076

== ENCOUNTER 2020-02-04 09:26 | Inpatient (IN) | payer OTHER ==
[~2020-02-04] VITALS: Ht 162.6 cm; Wt 77.3 kg
[~2020-02-04 09:26] MED LIST changes: +RENVELA800 MG PO
[2020-02-04] MEDS ORDERED: PACERONE 200 M200 M1 PO (10:26)
[2020-02-04] MEDS ORDERED: LANTUS SUBQ (10:26)
[2020-02-04] MEDS ORDERED: LIPITOR40 MG PO (10:26)
--- NOTE | 2020-02-04 16:13 | NUR ---
chart review. cm visited with alexia via phone call rt, jolene being transferred up to acute rehab at this time. he was independent prior to hospital, 3 step to enter home, has fww, manage own medication. goes to [facility] and has transportation for dialysis. will cont following as needed for dc needs.
[2020-02-04 17:24] VITALS: BP 115/51
--- NOTE | 2020-02-04 17:29 | NUR ---
1612 PATIENT ARRIVED TO REHAB UNIT VIA LEESA CHAIR WITH STAFF. PATIENT TO ROOM 513. VS TAKEN BP- 115/51 P-64 RESP- 16 TEMP- 98.2 O2 SATS 92%. PATIENT NOT WANTING TO STAND AT THAT TIME FOR WT. PATIENT ADMITED TO TO REHAB WITH ACUTE METABOLIC ENCEPHALOPATHY & MEDICAL COMPLEXITY GENERAL DEBILITY. PATIENT ABLE TO ANSWER QUESTIONS WITHOUT DIFFICULTY. NO C/O PAIN, LUNG SOUNDS CLEAR, BS ACTIVE. EDEMA NOTED TO LEFY ARM AND LOWER EXTREMITIES. BRUISING NOTED TO LEFT LEG. PATIENT IS POST HEAR SURGERY AND HAS A MIDLINE INCISION WITH DRESSING IN PLACE. IN CISION NOT VIEWED. DRESSING DRY AND INTACT. UPPER ARM FISTULA TO LEFT ARM NOTED. AREA COVERED WITH GAUZE AND STERI STRIP. PATIENT IS ALERT & ORIENTED X4. PATIENT IS CALM AND COOPERATIVE. PATIENT VOICED NKDA. PATIENT STATES NO PORK IN HIS MEALS. PATIENT SITTING UP IN CHAIR FOR DINNER. WILL CONTINUE TO OBSERVE.
[2020-02-04 21:39] VITALS: BP 122/64
--- NOTE | 2020-02-05 00:51 | NUR ---
PT ALERT AND ORIENTED X 4. UP TO BSC WITH ASSIST X 1 WITHOUT DIFFICULTY. CHEST DRESSING C/D/I. LEFT LEG BRUISED AND SLIGHTLY SWOLLEN. BLOOD SUGAR 170 AT HS. PT DENIES PAIN OR DISCOMFORT. BED ALARM ON FOR SAFETY. PT APPEARS TO BE SLEEPING ON HOURLY ROUNDS.
[2020-02-05 06:11] LABS: HEMATOCRIT 26.9 % (42.0-52.0); MCH 33.1 pg (26.0-34.0); MCHC 33.6 g/dL (28.0-37.0); MCV 98.6 fL (80.0-100.0); RBC 2.72 mil/uL (4.50-6.00); RDW 20.1 % (10.5-14.5); WBC 10.3 thou/uL (4.0-11.0)
[2020-02-05 06:28] LABS: CALCIUM 9.3 mg/dL (8.5-10.1); POTASSIUM 4.1 mmol/L (3.5-5.1)
[2020-02-05 06:54] LABS: CREATININE 4.6 mg/dL (0.7-1.3)
[2020-02-05 07:35] VITALS: BP 125/60
--- NOTE | 2020-02-05 11:52 | NUR ---
ASSUMED CARE AT 0700 THIS MORNING. PT. SITTING UP IN HIS BED. HE IS PLEASANT AND COOPERATIVE. HE WAS NEEDY AT THE FIRST OF THE SHIFT. HIS CAME TO VISIT. HAD BEEN HERE ABOUT 15 MINUTES WHEN STARTED TO COMPLAIN OF SHORTNESS OF BREATH. O2 PER NC AT 2 LPM APPLIED TO SEE IF THIS HELPED. HE USED THIS ABOUT 2 MINUTES THEN STATED HE DID NOT NEED IT ANY LONGER. RESPIRATORY THERAPY NOTIFIED OF THE SAME. HE WORKED WITH THERAPIES WITHOUT PROBLEMS NOTED. HE DENIES PAIN WHEN ASKED. HIS DEANNA DIALYSIS FISTULA STARTED TO SHOW A SMALL SPOT OF BLOOD. A GAUZE AND TAPE WAS PUT ON HIM. NO MORE BLOOD NOTED FROM THIS SITE. REPORT INFORMED STAFF OF PT. NOT SLEEPING AT [facility]. WILL ASK IF HE IS SEEN TODAY.
[2020-02-05 19:11] VITALS: BP 120/56
--- NOTE | 2020-02-06 01:28 | NUR ---
PT ALERT AND ORIENTED X 4. SLEEPING IN RECLINER. CHEST DRESSING C/D/I. LEFT ARM FISTULA WITH BRUIT AND THRILL. PT DENIES PAIN OR DISCOMFORT. CHAIR ALARM ON FOR SAFETY. PT APPEARS TO BE SLEEPING ON HOURLY ROUNDS.
[2020-02-06 12:35] VITALS: BP 133/61
--- NOTE | 2020-02-06 14:47 | NUR ---
ASSUMED CARES AT 0700. PT AWAKE, ALERT AND ORIENTED*4. C/O LUE PAIN, PAIN MEDICATION ADMINISTERED NEEDED. VITALS REMAIN STABLE. STERNAL PRECAUTIONS MAINTAINED, STERNAL DRESSING REMAINS DRY AND INTACT. LEFT ARM REMAINS EDEMATOUS, EXTREMITY ELEVATED WITH PILLOWS. THRILL AND BRUIT PRESENT ON LEFT ARM DIALYSIS FISTULA. PT UP WITH 1 MIN ASSIST, GB AND WALKER AND TOLERATED WELL. Q1H VISUAL CHECKS. CALL LIGHT WITHIN REACH. FALL PRECAUTIONS IN PLACE.
[2020-02-06 19:40] VITALS: BP 133/63
--- NOTE | 2020-02-07 04:34 | NUR ---
ASSUMED CARE OF PT AT 1915 ON 02/05/19. PT IS A&OX4. IS ON ROOM AIR. IS STABLE. DENIES PAIN IN CHEST. DRSG INTACT HAS SEVERAL SITES THAT ARE HEALING & KINZA. STERNAL PRECAUTIONS MAINTAINED. PT IS UP WITH 1 ASSIST, GB, WALKER TO BSC. PT REQUESTED TO SLEEP IN RECLINER LAST NIGHT. STATED, "I FEEL BETTER IN THE CHAIR". FALL PRECAUTIONS & HOURLY ROUNDING CONTINUED THIS SHIFT. CALL LIGHT WITHIN REACH. WILL CONTINUE TO MONITOR.
[2020-02-07 07:08] LABS: HEMATOCRIT 28.5 % (42.0-52.0); HEMOGLOBIN 9.4 gm/dL (14.0-18.0); MCH 32.4 pg (26.0-34.0); MCV 98.2 fL (80.0-100.0); RBC 2.9 mil/uL (4.50-6.00); RDW 19.2 % (10.5-14.5); WBC 9.4 thou/uL (4.0-11.0)
[2020-02-07 07:54] LABS: ALBUMIN 2.9 g/dL (3.4-5.0); CREATININE 6.7 mg/dL (0.7-1.3); PHOSPHORUS 3.9 mg/dL (2.5-4.9); POTASSIUM 4.5 mmol/L (3.5-5.1)
[2020-02-07 08:00] VITALS: BP 135/65
--- NOTE | 2020-02-07 08:58 | NUR ---
PT SITTING IN CHAIR IN ROOM. PT DENIES ANY PAIN. PT HAS SOME SWELLING TO LEFT ARM ELEVATED WITH PILLOW. PT LBM 02/05. PT HAS FISTULA TO LEFT ARM. PT TOOK MEDS WHOLE WITH WATER.
--- NOTE | 2020-02-07 15:03 | NUR ---
Nutrition: Dx acute metabolic encephalopathy to rehab unit. Received consult stating malnutrition-physician dx, RD will defer. S/P CABG x 6 on 01/23. Hx ESRD on hemodialysis during visit and RD did not awaken as was sleeping soundly. Nepro added on acute post surgery due to suboptimal intake although po prior to surgery was good. Appetite past several days appears to have resumed and pt eating 50-100% of meals with good intake of Nepro supplement. Weight is up 4# from baseline weight of 170# on acute prior to surgery. Will followup when able to speak with pt but consider low nutrition risk.
--- NOTE | 2020-02-07 15:30 | NUR ---
DR. FELIX ORDERED BABY ASA FOR PT. PT GETTING DIALYSIS. HE WANTS A DOSE TODAY. WILL FOLLOW UP.
--- NOTE | 2020-02-07 15:58 | NUR ---
PT GETTING DIALYSIS AT THIS TIME. PT REFUSED TO EAT LUNCH.
--- NOTE | 2020-02-07 18:43 | NUR ---
PT STILL GETTING DIALYSIS AT THIS TIME. PT RESTING WITH EYES CLOSED.
[2020-02-07 21:02] VITALS: BP 136/61
--- NOTE | 2020-02-08 02:55 | NUR ---
PT ALERT AND ORIENTED X 4. SLEEPS IN RECLINER. CHEST DRESSING C/D/I. PT HAD DIALYSIS YESTERDAY. REMOVED 2700 ML. LEFT ARM FISTULA DRESSING C/D/I. BRUIT AND THRILL NOTED. PT DENIES PAIN OR DISCOMFORT. CHAIR ALARM ON FOR SAFETY. PT APPEARS TO BE SLEEPING ON HOURLY ROUNDS.
[2020-02-08 09:28] VITALS: BP 139/61
--- NOTE | 2020-02-08 13:05 | NUR ---
Alert and orientated. Calm, cooperative and quiet. Denies pain. Breath sounds clear. Reg HR auscultated. Color pale pink with brisk capillary refill and palpable peripheral pulses.
--- NOTE | 2020-02-08 13:17 | NUR ---
team meeting, reccommendation: sternal precaution, 12yr old son in home as well. 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 dc 23 hh ( pt, ot, nurse, st ), assist with bills and pills.
[2020-02-08 22:10] VITALS: BP 121/55
[2020-02-09 08:00] VITALS: BP 107/53
--- NOTE | 2020-02-09 14:57 | NUR ---
PATIENT WAS UP SITTNG ON A RECLINER WHEN CARE ASSUMED. PATIENT IS ALERT, AND ORIENTED X 3-4. PATIENT TOOK ALL MEDICATION WHOLE WITHOUT DIFFICULTY. PATIENT ATE ABOUT 100% BREAKFAST,PATIENT CHOOSE NOT TO EAT LUNCH, HE ALSO DECLINE LUNCH TIME SLIDING SCALE INSULIN, PATIENT CHOOSE NOT TO PARTICIPATE IN AFTERNOON THERAPY, STATES "IT IS MY RIGHT, I HAVE THE RIGHT TO REFUSE". STERNAL CHEST DRESSING IN PLACE. PATIENT AMBULATES WITH ASSIST OF ROLLER WALKER WITH STANDBY ASSIST. PATIENT HAD BOWEL MOVEMENT THIS MORNING. NO SIGN OF ACUTE DISTRESS NOTED AT THIS TIME, CALL LIGHT IN REACH, WILL MONITOR FOR SAFETY.
--- NOTE | 2020-02-09 16:40 | NUR ---
FAXED REFERRAL TO [facility] RECEIVED CONFIRMATION AND LEFT MSG WITH KIANA IN INTAKE PT TO DC 02/10.
[2020-02-09 19:30] VITALS: BP 123/61
--- NOTE | 2020-02-09 22:23 | NUR ---
ASSUMED CARE OF PT AT 1900. PT IS A&X4. IS ON ROOM AIR. IS STABLE. DENIES CHEST PAIN. STERNAL PRECAUTIONS MAINTAINED. SURGICAL DRSG C/D/I. HAS SEVERAL HEALING INCISIONAL SITES. IS UP WITH 1 ASSIST, GB TO BSC. FALL PRECAUTIONS & HOURLY ROUNDING CONTINUED THIS SHIFT. LABS & VITALS REVIEWED. PT LIKES TO SLEEP IN RECLINER. IS ABLE TO SHIFT OWN WEIGHT IN CHAIR. IS CURRENTLY ASLEEP. CALL LIGHT WITHIN REACH. WILL CONTINUE TO MONITOR.
[2020-02-10 08:00] VITALS: BP 123/60
[2020-02-10 11:14] VITALS: BP 100/45
[2020-02-10 13:30] VITALS: BP 100/45
--- NOTE | 2020-02-10 14:39 | NUR ---
ASSUMED CARES AT 0700. PT AWAKE, ORIENTED*4. DENIES PAIN AT THIS TIME. VITALS REMAIN STABLE. PT SLEEPING IN THE RECLINER AFTER LUNCH, NO DISTRESS. LEFT UPPER ARM DIALYSIS FISTULA REMAINS INTACT, BRUIT AND THRILL PRESENT. STERNAL INCISION REMAINS DRY AND INTACT. LAP SITES CLEANED WITH BETADINE, REMAIN KINZA. LEFT ARM REMAINS EDEMATOUS, EXTREMITY ELEVATED. PT UP WITH 1 MIN ASSIST, STERNAL PRECAUTIONS MAINTAINED. Q1H VISUAL CHECKS. CALL LIGHT WITHIN REACH. FALL PRECAUTIONS IN PLACE
--- NOTE | 2020-02-10 14:39 | NUR ---
vendor choice form placed on pt chart. dc home tomorrow with jama guerrier. will last picker after work at round 5pm. cm passed on information to bedside nurse. will cont following as needed for dc needs.
[2020-02-10 16:48] VITALS: BP 123/60
[2020-02-10 20:11] VITALS: BP 123/57
--- NOTE | 2020-02-11 03:58 | NUR ---
Assumed care of pt @ 1900. Pt calm et cooperative this shift. Took medications whole without difficulty. VSWNL. Health assessment with no abnormalities noted at present time other than previosly documented. Client to be discharging home tonight. AOX3. Currently resting in bed with eyes closed, Will continue to monitor per unit protocol,
[2020-02-11] MEDS ORDERED: TRADJENTA5 MG PO (07:58)
[2020-02-11] MEDS ORDERED: PACERONE 200 M200 M1 PO ×2 (07:58→10:16)
[2020-02-11 08:00] VITALS: BP 119/61
[2020-02-11] MEDS ORDERED: ASPIR 8181 MG PO (09:48)
[2020-02-11] MEDS ORDERED: CALCITRIOL0.25 MCG PO (10:16)
[2020-02-11] MEDS ORDERED: GLIPIZIDE 10 MG10 MG PO ×2 (10:44→13:41)
[2020-02-11] MEDS ORDERED: GLUCOMETER (10:46)
--- NOTE | 2020-02-11 12:13 | NUR ---
PT DISCHARGING TODAY TO HOME WITH [facility] FAXED DC ORDERS/SUMMARY SPOKE WITH FRANK IN INTAKE SHE RECEIVED ORDERS AND WILL NOTIFY PT TO SET UP VISITS.
--- NOTE | 2020-02-11 13:49 | PLAN ---
[facility] [place] [address] REHAB UNIT PLAN OF CARE Name: BETTYE MAYA Room #: 513-P ADM IN M.R.#: [id number] Admission: 02/04/20 Attend Phys: Rajesh Yu MD Discharge: Date of : 42 Report #: [id number] THIS REPORT FOR: //name// CC: Rajesh To DATE OF SERVICE: 02/05/2020 PROGRESS NOTE/POST ADMISSION PHYSICIAN EVALUATION SUBJECTIVE: The patient has been admitted for acute in-hospital inpatient rehabilitation. Please see my prior consult note dictation and the history and physical from yesterday. He was noted to have severe coronary artery disease and underwent coronary artery bypass grafting x 6 on 01/24/2020. He had some problems with acute metabolic encephalopathy. He had an episode of SVT during dialysis on 01/25/2020, resulting in hypotension and seizure-like activity with amiodarone and converted to normal sinus rhythm. He had acute respiratory failure. He is debilitated also has the encephalopathy, which is improving. He was admitted for acute in-hospital inpatient rehabilitation. He is in no distress, was seen earlier. His sternal incision is dressed. He has some ecchymosis involving that left lower extremity, post-surgical. He also has some slight distal edema of the left hand. He has been needing mod assist with basic bed mobility and mod assist sit to stand with short distance ambulation just a couple of feet. He does have sternal precautions. ASSESSMENT: 1. Acute metabolic encephalopathy. 2. Medical complexity with generalized debilitation. 3. Severe coronary artery disease, status post coronary artery bypass grafting x 6 on 01/24/2020. 4. ST elevation myocardial infarction. 5. Anemia postop. 6. Acute respiratory failure, noted to be hypoxic respiratory failure, improving. 7. End-stage renal disease, on hemodialysis. PLAN: From a postadmission physician evaluation perspective, there are no relevant changes that were noted since the preadmission screening. Please see the above review of prior medical and functional conditions and comorbidities. As far as risk of complications, the patient has multiple medical comorbidities as noted above. Initial plan of care involves the interdisciplinary acute inpatient rehabilitation program. Measurable functional goals would be for the patient to become modified independent with transfers, mobility, ADLs to improve as far as cognition, so he can hopefully return back to his prior living situation. Prognosis is reasonably good with estimated length of stay probably 10 days to 2 weeks and potentially longer if warranted[place] [address] REHAB UNIT PLAN OF CARE Name: BETTYE MAYA Room #: 513-P [facility] IN [facility].#: [id number] Admission: 02/04/20 Attend Phys: Rajesh Yu MD Discharge: Date of : 42 Report #: [id number] would include his multiple medical comorbidities and decreased functional status as well as his decreased cognition. He meets diagnostic criteria for an acute in-hospital inpatient rehabilitation stay. He meets the medical necessity criteria and we will have the senior treasury consultant physicians continue to follow. He does have the tolerance for therapies and has appropriate discharge goals back to the home setting. <ELECTRONICALLY SIGNED> By: Rajesh Yu MD 02/11/20 1349 [id number] [id number] Rajesh Yu MD /nt
--- NOTE | 2020-02-11 13:49 | PLAN ---
[facility] [place] [address] REHAB UNIT PLAN OF CARE Name: BETTYE MAYA Room #: 513-P ADM IN M.R.#: [id number] Admission: 02/04/20 Attend Phys: Rajesh Yu MD Discharge: Date of : 42 Report #: [id number] THIS REPORT FOR: //name// CC: Rajesh To DATE OF SERVICE: 02/07/2020 PROGRESS NOTE AND OVERALL PLAN OF CARE SUBJECTIVE: The patient is seen back today in followup. He is in no distress. Last recorded temperature 98, pulse 67, respirations 20, blood pressure 133/63. 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 Sternal incision is dressed. No lower extremity edema. He has sternal precautions. Functionally, transfers are mod assist. Gait has been 95 feet contact guard with a front-wheeled walker. In occupational therapy, lower body dressing is max assist, upper body dressing is standby assistance. In speech therapy, he has moderate cognitive deficits with severe memory deficits. ASSESSMENT: A 79-year-old male with the following problem list: 1. Acute metabolic encephalopathy. He is noted to have moderate cognitive deficits with severe memory deficits. 2. Medical complexity with generalized debilitation. 3. Severe coronary artery disease, status post coronary artery bypass grafting x 6 on 01/25/2020. 4. ST elevation myocardial infarction. 5. Anemia postoperatively. 6. Acute respiratory failure, noted to be hypoxic respiratory failure, improving. 7. End-stage renal disease, on hemodialysis. PLAN: The overall plan of care includes the followin. Estimated length of stay is probably an additional 7-14 days pending progress. 2. Medical prognosis is reasonably good. 3. Anticipated interventions include the interdisciplinary acute inpatient rehabilitation program. 4. Anticipated functional outcomes would be for the patient to improve as far as gait and especially transfers with his sternal precautions as well as dressing and cognition. He does have significant deficits in these areas. He needs to be much more independent to return back to the home setting. 5. Discharge destination would be back home where he lives with his and his son. 6. Expected therapy by discipline includes PT, OT and Speech 1 hour per day each 5 days a week throughout the duration of the acute inpatient rehabilitation stay. [address] [address] REHAB UNIT PLAN OF CARE Name: BETTYE MAYA Room #: 513-P [facility] IN M.R.#: [id number] Admission: 02/04/20 Attend Phys: Rajesh Yu MD Discharge: Date of : 42 Report #: [id number] The patient's prognosis for significant practical improvement within a reasonable period of time appears good. Given the patient's complex medical condition and risk of further medical complications, rehabilitation services could not be safely provided at a lower level of care such as a [facility] facility. <ELECTRONICALLY SIGNED> By: Rajesh Yu MD 02/11/20 1349 [id number] 0031 Rajesh Yu, /nt
[2020-02-11 14:17] VITALS: BP 100/51
--- NOTE | 2020-02-11 15:37 | NUR ---
chart review. pt doesnt have act pcp. hospitalist dr paz will follow for hh needs until get in to see dr marino, . [facility]. [facility] for outpt dialysis.
[2020-02-11] MEDS ORDERED: HUMALOG100 UNIT/1 SUBQ (17:05)
[2020-02-11] MEDS ORDERED: LANTUS SUBQ (17:05)
--- NOTE | 2020-02-11 17:17 | NUR ---
FAXED DIALYSIS FLOWSHEETS TO [facility] RECEIVED CONFIRMATION.
[2020-02-11 17:30] VITALS: BP 100/45
--- NOTE | 2020-02-11 19:52 | NUR ---
assumed care of pt at 0700. pt is a&ox4 and vital signs are stable. dialysis this shift. plans for dc this evening. at bedside this evening. discharge instructions, education, medications, and f/u appointments reviewed with pt and . both deny questions. d/c script placed in d/c packet, informed about pharmacy scripts sent to. pt and assisted to ed for discharge by nursing staff at 1815.
[2020-02-14] MEDS ORDERED: CALCITRIOL0.5 MCG PO (11:55)
== END 2020-02-11 18:15 | disposition home health service (06) | DRG 70 ==
PROVIDERS: Internal Medicine Nephrology; Nurse Practitioner Family; ADMIT Physical Medicine & Rehabilitation; ATTEND Physical Medicine & Rehabilitation
PROC: 5A1D70Z Performance of Urinary Filtration, Intermittent, Less than 6 Hours Per Day (ICD-10-PCS; principal; 2020-02-06)
PROC: 5A1D70Z Performance of Urinary Filtration, Intermittent, Less than 6 Hours Per Day (ICD-10-PCS; 2020-02-08)
PROC: 5A1D70Z Performance of Urinary Filtration, Intermittent, Less than 6 Hours Per Day (ICD-10-PCS; 2020-02-11)
DX: G93.41 Metabolic encephalopathy (principal); I21.4 Non-ST elevation (NSTEMI) myocardial infarction; N18.6 End stage renal disease; J96.01 Acute respiratory failure with hypoxia; I50.33 Acute on chronic diastolic (congestive) heart failure; N17.9 Acute kidney failure, unspecified; I13.2 Hypertensive heart and chronic kidney disease with heart failure and with stage 5 chronic kidney disease, or end stage renal disease; R00.0 Tachycardia, unspecified; D64.9 Anemia, unspecified; E78.5 Hyperlipidemia, unspecified; E11.22 Type 2 diabetes mellitus with diabetic chronic kidney disease; I25.10 Atherosclerotic heart disease of native coronary artery without angina pectoris; M19.90 Unspecified osteoarthritis, unspecified site; R53.81 Other malaise; M17.12 Unilateral primary osteoarthritis, left knee; E55.9 Vitamin D deficiency, unspecified; Z95.1 Presence of aortocoronary bypass graft; Z79.899 Other long term (current) drug therapy; Z79.82 Long term (current) use of aspirin; Z79.4 Long term (current) use of insulin; Z98.42 Cataract extraction status, left eye; Z87.01 Personal history of pneumonia (recurrent); Z99.2 Dependence on renal dialysis; Z87.891 Personal history of nicotine dependence; Z23 Encounter for immunization; E11.65 Type 2 diabetes mellitus with hyperglycemia
CPT/HCPCS: 10112; 32100

== ENCOUNTER 2020-04-12 15:45 | Emergency (ER) | payer OTHER ==
[~2020-04-12] VITALS: Ht 167.6 cm; Wt 77.1 kg
[~2020-04-12 15:45] MED LIST changes: +ASPIR 8181 MG PO; +CALCITRIOL0.25 MCG PO; +CALCITRIOL0.5 MCG PO; +GLIPIZIDE 10 MG10 MG PO; +GLUCOMETER; +HUMALOG100 UNIT/1 SUBQ; +PACERONE 200 M200 M1 PO; +TRADJENTA5 MG PO
[2020-04-12 16:50] VITALS: BP 144/64
== END 2020-04-12 16:56 | disposition home or self-care (01) ==
LOC: ER 15:45
DX: S09.90XA Unspecified injury of head, initial encounter (principal); I13.2 Hypertensive heart and chronic kidney disease with heart failure and with stage 5 chronic kidney disease, or end stage renal disease; I50.9 Heart failure, unspecified; N18.6 End stage renal disease; Z87.891 Personal history of nicotine dependence; Z79.899 Other long term (current) drug therapy; Z99.2 Dependence on renal dialysis; W18.39XA Other fall on same level, initial encounter; Y93.89 Activity, other specified; Y92.89 Other specified places as the place of occurrence of the external cause; Y99.9 Unspecified external cause status

== ENCOUNTER 2020-06-15 06:38 | Inpatient (IN) | payer OTHER ==
[~2020-06-15] VITALS: Ht 152.4 cm; Wt 80.7 kg
[2020-06-15 06:56] VITALS: BP 150/73
[2020-06-15 07:33] LABS: ABSOLUTE NEUTROPHILS 5.7 thou/uL (1.4-8.2); BASOPHILS 1.3 % (0.0-2.0); EOSINOPHILS 0.2 % (0.0-3.0); HEMATOCRIT 47.1 % (42.0-52.0); LYMPHOCYTES 10.9 % (24.0-44.0); MCH 30.2 pg (26.0-34.0); MCHC 31.9 g/dL (28.0-37.0); MCV 94.7 fL (80.0-100.0); MONOCYTES 9.8 % (1.0-8.0); PLATELET COUNT 141 thou/uL (150-400); POLYS 77.8 % (36.0-66.0); RBC 4.97 mil/uL (4.50-6.00); RDW 18.2 % (10.5-14.5); WBC 7.3 thou/uL (4.0-11.0)
[2020-06-15 07:44] LABS: ALBUMIN 3.4 g/dL (3.4-5.0); CALCIUM 8.7 mg/dL (8.5-10.1); CREATININE 9.9 mg/dL (0.7-1.3); TOTAL BILIRUBIN 0.9 mg/dL (0.2-1.0); TOTAL PROTEIN 8.3 g/dL (6.4-8.2)
[2020-06-15 09:16] LABS: ANISOCYTOSIS 1+
--- NOTE | 2020-06-15 09:43 | EKG ---
[address] [address] ELECTROCARDIOGRAM REPORT Name: BETTYE MAYA Room #: 170-4 ADM IN M.R.#: [id number] Admission: 06/15/20 Attend Phys: Gage Hua MD Discharge: Date of : 42 Report #: [id number] [facility] ED Test Date: 2020-06-15 Test Time: 07:47:52 Pat Name: BETTYE MAYA Department: Room: 170 Gender: M Flour Inspector: chloe : 1940 Requested By: Rajesh López Order Number: [id number] MD: Victoriano Cain Measurements Intervals Pryor Rate: 65 P: MA: QRS: 206 QRSD: 198 T: 31 QT: 626 QTc: 652 Interpretive Statements Atrial fibrillation LBBB No previous ECG available for comparison Electronically Signed On 06-15-2020 9:43:31 DEHYDRATOR OPERATOR by Victoriano Cain [email or web address] <ELECTRONICALLY SIGNED> By: Victoriano Cain MD, [facility] 06/15/20 0943 0747 0747 Victoriano Cain MD, FACC /EPI
[2020-06-15 12:39] VITALS: BP 151/78
--- NOTE | 2020-06-15 17:39 | NUR ---
VERIFIED WITH DIETARY THAT TRAY HAS BEEN ORDERED FOR DINNER.
[2020-06-15 19:54] VITALS: BP 121/61
[2020-06-15 20:45] VITALS: BP 122/55
[2020-06-15 21:11] VITALS: BP 128/66
--- NOTE | 2020-06-15 23:13 | NUR ---
PT ADMITTED TO THE UNIT AT 2100. PT IS A/O X4 AND IS UP WITH ASSISTANCE TO THE BR. ADMISSION COMPLETED. PT C/O LEFT FOOT PAIN. 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 ROOM AIR. IS AFIB ON THE MONTIOR. MEDICATIONS GIVEN PER MAR. FALL PRECAUTIONS IN PLACE, CALL LIGHT IS WITHIN REACH. WILL CONTINUE TO MONITOR.
[2020-06-16 04:46] LABS: HEMATOCRIT 42.3 % (42.0-52.0); HEMOGLOBIN 13.5 gm/dL (14.0-18.0); MCH 30.2 pg (26.0-34.0); MCV 94.5 fL (80.0-100.0); RBC 4.48 mil/uL (4.50-6.00); RDW 17.9 % (10.5-14.5)
[2020-06-16 05:04] LABS: CALCIUM 8.4 mg/dL (8.5-10.1); PHOSPHORUS 4.6 mg/dL (2.5-4.9)
[2020-06-16 05:08] LABS: POTASSIUM 4.6 mmol/L (3.5-5.1)
[2020-06-16 07:13] VITALS: BP 112/53
--- NOTE | 2020-06-16 14:47 | NUR ---
PT ADMITTED RELATED TO HYPERKALEMIA, RENAL FAILURE, DYSPNEA. CM REVIEWED CHART AND SPOKE WITH CARE TEAM. CM MET WITH PT AT BEDSIDE THIS DAY. PT APPEARED TO BE A&O X4. CM ROLE INTRODUCED. PT INDICATED THAT HE LIVES IN A HOUSE WITH HIS SPOUSE AND HIS YOUNG SON. 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 PT INDICATED HE TAKES SHARE A FARE TO AND FROM DIALYSIS [facility]. PT INDICATED HE HAD HH IN PAST. PT INDICATED NO PCP. PT STATED HE PLANS TO RETURN HOME ONCE MEDICALLY STABLE. CM CALLED SPOUSE AND SHE INDICATED THAT PT USES A FWW AT HOME AND NEEDS OCCASIONAL ASSIST WITH ADLS. SHE CONFIRMED NO PCP. CARE TEAM INDICATED THAT PT WILL LIKELY BE MEDICALLY STABLE TO [facility] TOMORROW. CM SENT REFERRAL TO [facility] FOR REVIEW FOR POSSIBLE ADMISSION. [facility]: P: F:
--- NOTE | 2020-06-16 15:24 | NUR ---
ASSUMED CARE OF PATIENT AT 0700. ASSESSMENT CHARTED. MEDS ADMINISTERED PER EMAR. VSS. PATIENT IS A&OX4 AND ABLE TO MAKE NEEDS KNOWN. VSS. PATIENT ON DAY ONE OF HOSPITAL STAY. K+ STILL HIGH. C/O PAIN, SWELLING, ITCHING AND REDNESS ON LEFT SIDE OF BODY TANI LE. PROVIDER SAW PATIENT. WOUND CARE CONSULTED. PATIENT MEDICATED NEEDED W ANALGESIC. RECEIVING DIALYIS W NO ISSUES. FALL WORKED W PT/OT; TRANSFERRED FROM CHAIR TO BED FOR DIALYSIS. FALL PRECAUTIONS IN PLACE. WILL CONTINUE TO MONITOR AND FOLLOW PLAN OF CARE
[2020-06-16 15:44] VITALS: BP 184/83
[2020-06-16 20:22] VITALS: BP 113/64
--- NOTE | 2020-06-17 02:29 | NUR ---
ASSUMED CARE AT 1900. PT IS A/O X4 AND IS UP WITH SBA WITH A WALKER TO THE BR. RA, AFIB ON THE MONTIOR. NO C/O SOA WITH EXERTION. C/O PAIN TO LEFT FOOT. BLISTER INTACT AND OPEN TO AIR. REDNESS, WARMTH, AND PAIN TO LEFT HAND AND LLE. PRN PAIN MEDICATION GIVEN DIRECTED. FALL PRECAUTIONS IN PLACE, CALL LIGHT IS WITHIN REACH.
[2020-06-17 05:15] LABS: HEMATOCRIT 41.4 % (42.0-52.0); HEMOGLOBIN 13.1 gm/dL (14.0-18.0); MCHC 31.6 g/dL (28.0-37.0); RBC 4.36 mil/uL (4.50-6.00); WBC 5.4 thou/uL (4.0-11.0)
[2020-06-17 05:55] LABS: CREATININE 4.3 mg/dL (0.7-1.3); POTASSIUM 3.6 mmol/L (3.5-5.1)
[2020-06-17 08:30] VITALS: BP 119/63
[2020-06-17 15:23] VITALS: BP 119/63
--- NOTE | 2020-06-17 15:24 | NUR ---
The staff told Commercial Hvac Service Technician Brianna about the discharge plan for the patient. According to Ms. Reed, the patient's formal home health care facility refused to have to have the patient back due to the patient's being incooperative. Ms. Reed agreed with the discharge plan, voicing that the patient would not have home health care before a new home health care facility was settled for the patient.
[2020-06-17] MEDS ORDERED: HYDROCORTISONE30 GM TOP (15:54)
--- NOTE | 2020-06-17 17:50 | NUR ---
Patient complains of itching, steroid cream was prescriped.
--- NOTE | 2020-06-19 16:35 | HC ---
[facility] [place] [address] CONSULTATION Name: BETTYE MAYA Room #: 456-P [facility] IN M.R.#: [id number] Admission: 06/15/20 Attend Phys: Gage Hua MD Discharge: 06/17/20 Date of : 42 Report #: [id number] THIS REPORT FOR: cc: FAM - No family physician/PCP FAM - No family physician/PCP Jh Colon MD ~ DATE OF SERVICE: 06/17/2020 CHIEF COMPLAINT: Rash and blisters to left lower extremity. HISTORY OF PRESENT ILLNESS: This is a 79-year-old male patient with a history of end-stage renal disease, requiring hemodialysis and type 2 diabetes mellitus, who was admitted with shortness of breath. He skipped several dialysis appointments. He has had some generalized pruritus as well as a bullous lesion to his left ankle for which I have been asked to see him. The patient states that the pruritus is significant, but denies any pain, fever or chills. PAST MEDICAL HISTORY: Positive for end-stage renal disease, requiring dialysis, TIAs, acute kidney injury, diabetes type 2, congestive heart failure, chronic kidney disease, hyperglycemia and history of respiratory failure. SOCIAL HISTORY: Negative for alcohol or tobacco use. FAMILY HISTORY: Noncontributory. MEDICATIONS: Include amiodarone, acetaminophen, aspirin, atorvastatin, calcitriol, calcium carbonate, Sensipar, hydrocodone, insulin, sevelamer. ALLERGIES: None. FAMILY HISTORY: Noncontributory. REVIEW OF SYSTEMS: CONSTITUTIONAL: The patient denies fever, chills, or weight loss. NEUROLOGICAL: The patient denies focal weakness, numbness or tingling. EYES: The patient denies visual changes, redness, or drainage. ENT: The patient denies earache, nasal drainage or sore throat. CARDIOVASCULAR: The patient denies chest pain, palpitation or diaphoresis. PULMONARY: The patient denies cough or shortness of breath. GASTROINTESTINAL: The patient denies nausea, vomiting, diarrhea or abdominal pain. ORTHOPEDIC: The patient notes a blister on his left leg. He complains of generalized pruritic rash that has been present for several weeks. PHYSICAL EXAMINATION: [facility] [address] [address] CONSULTATION Name: BETTYE MAYA Room #: [address] [place] [address]#: [id number] Admission: 06/15/20 Attend Phys: Gage Hua MD Discharge: 06/17/20 Date of : 42 Report #: [id number] VITAL SIGNS: At this time include temperature 36.6, pulse 69, respiratory rate 17, blood pressure 119/63. GENERAL: This is a chronically ill-appearing male patient who appears to be in no distress. HEENT: Head normocephalic. Nose and throat clear. NECK: Supple. LUNGS: Clear. HEART: Regular rhythm. ABDOMEN: Bowel sounds present. EXTREMITIES: Lower extremities demonstrate a large bullous lesion to the left lateral foot and ankle region. I have drained a blister and unroofed it, revealing an intact, clean partial thickness injury. He has a generalized rash, maculopapular, it is relatively nonspecific and no evidence of infection. NEUROLOGIC: The patient is alert, oriented and appropriate. LABORATORY DATA: White blood cell count 5.4, hemoglobin 13.1. Sodium 134, potassium 3.6, chloride 96, CO2 of 28, BUN 22, creatinine 4.3, glucose 155. Albumin is 3.0. CLINICAL IMPRESSION: 1. Bullous lesion to the left lateral ankle, which is now status post unroofing. 2. Generalized pruritus. 3. End-stage renal disease, requiring hemodialysis. 4. Some level of medical noncompliance. RECOMMENDATIONS: At this point, I will recommend topical triamcinolone cream twice daily to the areas of pruritus. We will recommend Xeroform gauze, ABD and Kerlix to the left foot, ankle to be changed daily. We will continue to follow while he is here in the hospital and I appreciate being asked to see him in consultation. <ELECTRONICALLY SIGNED> By: Jh Colon MD 06/19/20 [id number] Jh Colon MD /nt
== END 2020-06-17 17:27 | disposition home or self-care (01) | DRG 640 ==
LOC: ER 06:38 → EROBS 08:58 → 4W 20:49
PROVIDERS: Emergency Medicine; ADMIT Hospitalist; ATTEND Hospitalist
PROC: 5A1D70Z Performance of Urinary Filtration, Intermittent, Less than 6 Hours Per Day (ICD-10-PCS; principal; 2020-06-15)
DX: E87.5 Hyperkalemia (principal); N18.6 End stage renal disease; I13.2 Hypertensive heart and chronic kidney disease with heart failure and with stage 5 chronic kidney disease, or end stage renal disease; E11.22 Type 2 diabetes mellitus with diabetic chronic kidney disease; E87.70 Fluid overload, unspecified; L29.9 Pruritus, unspecified; M25.872 Other specified joint disorders, left ankle and foot; I25.10 Atherosclerotic heart disease of native coronary artery without angina pectoris; I50.9 Heart failure, unspecified; E78.5 Hyperlipidemia, unspecified; F03.90 Unspecified dementia, unspecified severity, without behavioral disturbance, psychotic disturbance, mood disturbance, and anxiety; R23.8 Other skin changes; R53.81 Other malaise; I48.91 Unspecified atrial fibrillation; Z20.822 Contact with and (suspected) exposure to COVID-19; Z86.73 Personal history of transient ischemic attack (TIA), and cerebral infarction without residual deficits; Z79.4 Long term (current) use of insulin; Z79.899 Other long term (current) drug therapy; Z91.14 Patient's other noncompliance with medication regimen; Z95.1 Presence of aortocoronary bypass graft; Z99.2 Dependence on renal dialysis; Z83.3 Family history of diabetes mellitus; Z82.49 Family history of ischemic heart disease and other diseases of the circulatory system
CPT/HCPCS: 10045; 32100